=== PATIENT | female | born 1945 | race Caucasian/White ===

== ENCOUNTER 2022-09-28 09:42 | Outpatient (REF) | payer MEDICARE, SELFPAY ==
[2022-09-28 11:01] LABS: MANUAL DIFF FLAG NO
[2022-09-28 11:38] LABS: Basophils Absolute Auto 0.1 X10*3/uL (0.0-0.2); Basophils Percent Auto 0.7 % (0-2); Eosinophils Absolute Auto 0.1 X10*3/uL (0.0-0.4); Eosinophils Percent Auto 0.9 % (0-4); Hemoglobin 12.2 g/dl (12.0-16.0); Imm Gran Abs Auto 0.13 X10*3/uL (0.00-0.03); Imm Gran Pct Auto 1.2 % (0.0-0.4); Lymphocytes Absolute Auto 1.4 X10*3/uL (1.2-4.9); Lymphocytes Percent Auto 13.7 % (20-40); Mean Corpuscular HGB Conc 32.1 g/dl (31.0-35.0); Mean Corpuscular Hemoglobin 27.3 pg (27.0-33.0); Mean Platelet Volume 9.4 fL (9.4-12.3); Monocytes Absolute Auto 0.8 X10*3/uL (0.1-1.2); Monocytes Percent Auto 7.8 % (2-11); Neutrophils Percent Auto 75.7 % (45-73); Platelet Count 437 X10*3/uL (160-400); Red Blood Count 4.47 X10*6/uL (4.20-5.50); Red Cell Distribution Width 14.1 % (11.0-16.0); White Blood Count 10.5 X10*3/uL (4.8-10.8)
[2022-09-28 11:45] LABS: D Dimer High Sensitivity 336 NG/ML
[2022-09-28 12:08] LABS: Alanine Aminotransferase 19 U/L (0-31); Albumin Level 3.5 g/dL (3.5-5.0); Alkaline Phosphatase 161 U/L (39-117); Anion Gap 15 (12-20); Aspartate Amino Transferase 20 U/L (5-31); Bilirubin Direct 0.2 mg/dL (0.0-0.5); Bilirubin Total 0.4 mg/dL (0.0-1.0); Blood Urea Nitrogen 12 mg/dL (9-16); Calcium 8.7 mg/dL (8.4-10.2); Carbon Dioxide 26 mmol/L (22-29); Chloride 103 mmol/L (96-108); Estimated Glomerular Filt Rate > 60; Glucose Random 121 mg/dL (60-115); Potassium 3.8 mmol/L (3.3-5.1); Sodium 140 mmol/L (135-145); Total Protein 6.5 g/dL (6.5-8.0)
[2022-09-28 12:18] LABS: Erythrocyte Sedimentation Rate 86 MM/HR (0-20)
[2022-10-03 07:44] LABS: Myeloperoxidase Antibody <1.0 AI; Proteinase 3 PR3 Antibodies <1.0 AI
[2022-10-03 15:39] LABS: Anti Nuclear Antibody Screen POSITIVE (NEGATIVE)
[2022-10-06 13:54] LABS: Asperg fumigatus Precip Abs NEGATIVE (NEGATIVE); Micropoly faeni Abs NEGATIVE (NEGATIVE); Pigeon serum Abs NEGATIVE (NEGATIVE); Saccharo pora viridis Abs NEGATIVE (NEGATIVE); Thermo candidus Abs NEGATIVE (NEGATIVE); Thermoa vulgaris #1 NEGATIVE (NEGATIVE)
== END 2022-09-28 09:43 | disposition home or self-care (01) ==
LOC: HO.LAB 09:42
PROVIDERS: PCP Internal Medicine; Visit Provider Hospitalist
DX: R91.8 Other nonspecific abnormal finding of lung field (principal); J96.10 Chronic respiratory failure, unspecified whether with hypoxia or hypercapnia; R79.89 Other specified abnormal findings of blood chemistry
CPT/HCPCS: 36415; 80048; 80076; 85025; 85379; 85652; 86021; 86038; 86039; 86331; 86606; 86609; 94618; 99202

== ENCOUNTER 2022-10-15 12:31 | Outpatient (REF) | payer MEDICARE, SELFPAY ==
--- NOTE | 2022-10-15 | PFT_ITS ---
FLOWS: FEV1 41% of predicted at 0.88 L. FVC 55% of predicted at 1.57 L. FEV1 to FVC ratio of 0.56. Positive bronchodilator response. LUNG VOLUMES: Total lung capacity 97% of predicted at 4.98 L. Residual volume 153% of predicted at 3.60 L. Slow vital capacity 49% of predicted at 1.38 L. Expiratory reserve volume 52% of predicted at 0.32 L. Diffusion capacity is moderately decreased, diffusion capacity corrects to normal after adjustment for alveolar ventilation. IMPRESSION: Severe obstructive ventilatory defect with positive bronchodilator response. Increased residual volume suggests air trapping. Decreased diffusion capacity suggests emphysema. MD BRANDON Childs/MODL / [id number]
== END 2022-10-15 12:32 | disposition home or self-care (01) ==
LOC: HO.RESP 12:31
PROVIDERS: PCP Internal Medicine; Visit Provider Hospitalist
DX: J44.9 Chronic obstructive pulmonary disease, unspecified (principal)
CPT/HCPCS: 94060; 94727; 94729

== ENCOUNTER → 2022-10-30 11:15 | Outpatient (REF) | payer MEDICARE, SELFPAY ==
--- NOTE | ~2022-10-30 | XR_ITS ---
EXAMINATION: XR CHEST CLINICAL INFORMATION: Cough, positive sputum. COMPARISON: None. TECHNIQUE: 2 views of the chest were obtained. FINDINGS: The lungs are well expanded with no acute pneumonic process seen. There is mild haziness in the right lower lobe on PA view, likely related to irregularity within the right breast prosthesis which is slightly deformed. Heart size and pulmonary vascularity normal. No gross bony abnormalities seen. XR/XR chest 2V IMPRESSION: No acute cardiopulmonary process seen. There is an irregular and mildly inhomogeneous-appearing right breast prosthesis.
--- NOTE | ~2022-10-30 | NM_ITS ---
PULMONARY PERFUSION ONLY STUDY: CLINICAL INDICATION: Finding of other specified substances, not normally found in blood PROCEDURE: Following the intravenous administration of 0.0 millicuries technetium 99m MAA, images of the chest were obtained in multiple projections using a gamma scintiphotographic camera. The radiotracer was injected through right antecubital superficial vein without complications. COMPARISON: Chest radiograph done on 10/30/2022. CHEST RADIOGRAPH: Bilateral clear lung ghosh. Mild hyperinflation is present bilaterally. PERFUSION IMAGES: Heterogeneous nonsegmental perfusion defects are present bilaterally. There are no large segmental perfusion defects seen on either side. NM/NM pul perfusion IMPRESSION: Based on perfusion only modified PIOPED 2 criteria, pulmonary thromboembolism is considered absent.
== END ==
LOC: HO.NUCMED 11:15
PROVIDERS: PCP Internal Medicine; Visit Provider Hospitalist
DX: R79.89 Other specified abnormal findings of blood chemistry (principal)
CPT/HCPCS: 71046; 78580; A9540

== ENCOUNTER → 2022-11-05 09:57 | Outpatient (BNVA) | payer MEDICARE, SELFPAY | PROVIDERS: PCP Internal Medicine; Visit Provider Hospitalist | DX: J44.0 Chronic obstructive pulmonary disease with (acute) lower respiratory infection (principal); J18.9 Pneumonia, unspecified organism; J96.10 Chronic respiratory failure, unspecified whether with hypoxia or hypercapnia; R91.8 Other nonspecific abnormal finding of lung field; Z79.52 Long term (current) use of systemic steroids; Z79.899 Other long term (current) drug therapy; Z99.81 Dependence on supplemental oxygen | CPT/HCPCS: 99212 ==

== ENCOUNTER → 2023-04-10 13:15 | Outpatient (BNVA) | payer MEDICARE, SELFPAY | PROVIDERS: PCP Internal Medicine; Visit Provider Nurse Practitioner Family | DX: J44.9 Chronic obstructive pulmonary disease, unspecified (principal); J18.9 Pneumonia, unspecified organism | CPT/HCPCS: 94618; 99212 ==

== ENCOUNTER → 2023-05-01 11:00 | Outpatient (BNV) | payer MEDICARE, SELFPAY | PROVIDERS: PCP Internal Medicine; Visit Provider Internal Medicine | DX: C18.2 Malignant neoplasm of ascending colon (principal) | CPT/HCPCS: 99204; 99212; 99213; 99214; 99215; G2211 ==

== ENCOUNTER 2023-05-07 13:45 | Outpatient (REF) | payer MEDICARE, SELFPAY ==
--- NOTE | ~2023-05-07 | CT_ITS ---
EXAMINATION: CT CHEST WITH IV CONTRAST CT ABDOMEN AND PELVIS WITH IV CONTRAST CLINICAL INFORMATION: History of recurrent colon carcinoma. Also, chest CT requested to follow-up pneumonitis. Also, follow-up pancreatitis., COMPARISON: Chest radiograph from 10/30/2022. TECHNIQUE: Multidetector CT imaging examination of the chest, abdomen and pelvis was performed with intravenous administration of 85 mL Omnipaque 350. Axial images are displayed at 0.625 mm and 5 mm slice thickness. Oral contrast was given. Coronal and sagittal reformatted images were generated at the technologist's workstation and submitted for review. This CT examination was performed using dose optimization techniques as appropriate, variously including the following: *Automated exposure control *Adjustment of mA and/or kV according to patient size (this includes techniques or standardized protocols for targeted exams where dose is matched to indication/reason for exam; i.e. extremities or head) *Use of iterative reconstruction technique DLP: 300 mGy-cm FINDINGS: CHEST - LUNGS AND PLEURA: Mild centrilobular and paraseptal emphysema. The bronchial zamudio are diffusely, mildly thickened. Scattered linear opacities of scarring and atelectasis are present in both lungs. Also, there are patchy bilateral groundglass opacities. A streaky opacity of mixed attenuation in the anterior right lower lobe could represent subacute postinfectious/inflammatory change (images [id number], series 7). The peripheral pleural-parenchymal opacity of the posterior left lower lobe has the appearance of chronic fibrosis. A few noncalcified pulmonary micronodules are detected, including within periphery of the anterolateral right upper lobe (image 144, series 7). No suspicious lung nodule or mass. No pleural effusion. MEDIASTINUM/LOWER NECK: The heart size is normal. No pericardial effusion. Pulmonary arteries and thoracic aorta are normal in caliber. No mediastinal mass. The esophagus is unremarkable. No evidence of any clinically significant thyroid nodule. LYMPHATICS: No pathologic sized axillary, hilar or mediastinal lymph nodes. CHEST WALL/BONES OF THORAX: Chronic capsular calcifications of bilateral breast prostheses. There is a right chest wall medication port with tip of IJ catheter located at junction of the SVC with right atrium. Bones appear to be diffusely osteoporotic. There are mild and moderate discovertebral degenerative changes of the thoracic spine. No vertebral compression fractures. ABDOMEN AND PELVIS - HEPATOBILIARY: There is normal variation configuration of the left hepatic lobe which is elongated with tip of left lobe in contact with the spleen in the left upper quadrant. No focal liver lesion. Gallbladder is unremarkable. No dilated bile ducts. PANCREAS: No edema, mass or pancreatic ductal dilatation. SPLEEN: Normal. ADRENAL GLANDS: Normal. KIDNEYS AND URETERS: Kidneys are normal in size. No renal stones or hydronephrosis. There are simple cysts of the left kidney. 1.3 cm cortical lesion of the anterior mid right kidney has a density of 90 Hounsfield units. Although this probably represents a proteinaceous cyst, this is an indeterminate lesion, not fully characterized. Multiple surgical clips project lateral/inferolateral to the right kidney and along region of the anterior renal fascia. The mass projecting inferolateral to the lower pole of the right kidney measures up to 3 cm maximum dimension and has density of 130 Hounsfield units. This is incompletely characterized on this single phase contrast-enhanced examination. The ureters are unremarkable. BOWEL, PERITONEUM AND ABDOMINAL WALL: No dilated bowel loops. There appears to be a diverticulum of the second portion the duodenum. There is an ileostomy of the right abdominal wall, status post right hemicolectomy. Multiple diverticula of the colon without diverticulitis. There is a 0.5 cm lymph node or nodule in the region of the right paracolic gutter (image 41, series 3). Given history of recurrent carcinoma, a small tumor deposit is not excluded. There is no evidence of omental nodularity, ascites or pneumoperitoneum. VESSELS: Atherosclerosis of the abdominal aorta and iliac arteries without aneurysm. LYMPH NODES: No pathologic sized lymph nodes in the abdomen or pelvis. No inguinal lymphadenopathy. BLADDER AND PELVIC VISCERA: Urinary bladder is unremarkable. No evidence of uterine or adnexal mass. No pelvic free fluid. OTHER MUSCULOSKELETAL: Again, bones appear to be diffusely osteoporotic. Lumbar vertebra are normal in height. Multilevel degenerative disc space narrowing, vacuum disc phenomenon and vertebral osteophyte formation of the lumbar spine. No acute or suspicious osseous abnormality. CT/CT abdomen pelvis w IV con IMPRESSION: * Mild pulmonary emphysema. * Patchy groundglass opacities in both lungs could reflect presence of noninfectious or infectious pneumonitis. Note that there are no comparison chest CT exams available to allow comment on improvement or progression in the patient's pneumonitis. There is no pleural effusion or lymphadenopathy. * No evidence of metastatic disease within the chest. * Status post right hemicolectomy and ileostomy. Small 0.5 cm nodular focus in region of right paracolic gutter is present. It is uncertain whether this represents a small metastatic deposit in this patient with history of colon carcinoma. Attention to this focus is required on future follow-up exams. * 1.3 cm cortical lesion of the anterior right kidney probably represents a proteinaceous cyst but is not fully characterized. Also, there is an indeterminate 3 cm mass projecting from the lower pole of the right kidney, differential diagnosis of complex hemorrhagic cyst versus neoplasm. * Pancreas is normal. No evidence of pancreatitis. * Colonic diverticulosis without diverticulitis.
[2023-05-07] MEDS: iohexoL 350 MG/ML 100 ML INFUS..BTL IV (14:28)
== END 2023-05-07 13:46 | disposition home or self-care (01) ==
LOC: HO.CT 13:45
PROVIDERS: PCP Internal Medicine; Visit Provider Internal Medicine
DX: C18.9 Malignant neoplasm of colon, unspecified (principal); J18.9 Pneumonia, unspecified organism; R91.8 Other nonspecific abnormal finding of lung field
CPT/HCPCS: 71260; 74177; Q9967

== ENCOUNTER 2023-05-23 09:39 | Outpatient (AMB) | payer MEDICARE, SELFPAY ==
[2023-05-23 09:51] VITALS: BP 118/70; PULSE 81; O2SAT 96; BMI 19.7
--- NOTE | 2023-05-23 09:51 | A.OFFVIS_ITS ---
Intake Vital Signs 05/23/23 09:51 Height 5 ft 4 in Weight 114 lb 10.246 oz BMI 19.7 BP 118/70 Blood Pressure Location Lt brachial Position Sitting Pulse 81 Pulse Source Pulse Oximeter Pulse Oximetry (%) 96 Oxygen Delivery Method Room Air Intake Visit Reasons: shortness of breath [employer]eter Required: No Allergies No Known Allergies Allergy (Verified 05/23/23 09:54) HPI HPI Comments History of Present Illness Details the patient is here for a pulmonary evaluation. The patient is a 77 year woman who apparently was in usual state health until the last several weeks when she started developing worsening shortness of breath. She was evaluated at [facility] where she was admitted to the hospital. There she did undergo a CT scan of the chest PE protocol ruling out PE although she had multiple patchy areas of consolidations and nodular densities. It was suspicious for inflammatory process versus infectious atypical process. She was given a course of prednisone and also antibiotics. Her symptoms did improve initially initially. However she also needed oxygen. She was discharged and then tapered off the prednisone. She has been noticing worsening shortness of breath. I personally reviewed the images. Appears that the it patchy opacities are primarily in a bronchovascular distribution. Noninfectious inflammatory conditions such as cryptogenic organizing pneumonia is in differential. The patient also went for 6 minute walk test. The patient still requires about 3 L of continues oxygen to maintain are within the low 90s. Therefore will submit that to her [employer]. Explained to her that she cannot use effectively a conserving device or portable oxygen concentrator. Dose will not provide her enough relief or help with her hypoxia. Patient also using the oxygen at nighttime. In view of the CT scan findings she will undergo blood work. Rivka Dawson ruled out pulmonary emboli based on the CTA. However I will order D- dimer again just to reassess. If her D-dimer is elevated and a V/Q scan will be helpful to assess for thromboembolic disease. 11/05/2022 the patient is here for a pulmonary follow-up visit. She is down to 5 mg of prednisone daily. She is getting some dyspepsia Erika he had sensation middle the chest. Will place her on a PPI to try to minimize symptoms. We again talked about the findings on the CT scan. Does not appear to be concern ing for malignancy although it is still in differential. It appears to be more inflammatory. Her blood work included a positive JAXON although very slow titers. If she also had a significantly elevated sedimentation rate of 86. The significance of that is still not clear. Her vasculitis workup was negative and her hypersensitive workup also negative. She is feeling better. She is not using the oxygen which is reassuring. She also did undergo pulmonary function studies which we personally reviewed the patient does have severe COPD based on the PFTs and does have a significant response to bronchodilators. Therefore will go ahead and start her on a maintenance inhaler to see if we can alleviate some of her symptoms. She will need a repeat CT scan of the chest to follow up with the abnormal masslike opacities that she had a previous CT scan. Will follow-up after her CT scan. 05/23/2023 the patient is here for pulmonary follow-up visit. Reason she was to be sent March with worsening respiratory symptoms. X-ray demonstrated pneumonia. The patient's treating release. Above discharge the patient continue to have a worsening cough along with shortness of breath. She was prescribed azithromycin and also prednisone. She did not take the prednisone since he really affected her adversely when she had prescribed at [facility]. Explained to her that was likely a high dose making it difficult for her to tolerated. However, give her small dose of medicine a would be tolerable. The patient did have a CT scan of the chest here at [place] on May 07. I personally reviewed with her. It looks like the pneumonia cleared up. However, she does have areas of ground- glass opacities suggesting some persistent pneumonitis. She had been as on a small dose of prednisone and I do believe that she continues to need a little bit of prednisone. Therefore will start her on 10 mg daily for 2 weeks and then she can taper down to 5 mg for another 1-2 weeks. The patient will be evaluated by Oncology again both here at [place] and also in [place]. The patient is aware that if she starts immune therapy again she has start the prednisone altogether will also extend her antibiotics since she is still expectorating some phlegm. Overall she is feeling better. [facility] Medical History (Updated 05/17/23 @ 15:27 by Cece Reagan MD) Blood D-dimer assay positive CAD (coronary artery disease) Chronic respiratory failure Colon adenocarcinoma COPD (chronic obstructive pulmonary disease) Pneumonia Pulmonary nodules Surgical History S/P colon resection Family History Sister Dementia Breast cancer Father Emphysema lung Mother Social History Household Members: Spouse Housing: House Patient Tobacco Use Status: Former Tobacco user Tobacco use type: Cigarette service: No Current occupational status: retired Review of Systems Const Denies fever(s), Reports poor appetite and Reports weight loss Eyes Denies change in vision and Denies itchy eyes ENT Denies change in voice Card Denies chest pain and Reports dyspnea on exertion Resp Reports chest congestion, Reports cough and Reports dyspnea on exertion GI Denies abdominal pain Skin/Breast Denies rash Psych Reports no additional complaints Endo Denies heat intolerance [place]/Lymph Denies easy bruising Aller/Immun Denies urticaria and Denies itchy eyes Physical Exam Vital Signs: Last Vital Signs Pulse 81 05/23/23 09:51 BP 118/70 05/23/23 09:51 Pulse Ox 96 05/23/23 09:51 Oxygen Delivery Method Room Air 05/23/23 09:51 BMI result Body Mass Index 19.7 Const General: comfortable HEENT Head: Yes atraumatic Eyes General: appearance normal, both eyes and all related structures Neck Neck: Yes supple Chest Chest palpation & inspection: normal inspection of the chest Resp Effort & Inspection: normal respiratory effort Auscultation: diminished lung sounds GI Auscultation: normal bowel sounds Skin General skin exam: no rashes or lesions noted Extrem General: Yes no clubbing, cyanosis or edema Assessment & Plan Assessment & Plan (1) Chronic respiratory failure: Code(s): J96.10 - Chronic respiratory failure, unspecified whether with hypoxia or hypercapnia (2) Pulmonary nodules: Code(s): R91.8 - Other nonspecific abnormal finding of lung field (3) COPD (chronic obstructive pulmonary disease): Comment: severe based on PFTs Code(s): J44.9 - Chronic obstructive pulmonary disease, unspecified (4) Pneumonia: Comment: ?infectious versus non infectious. Very suspicious for cryptogenic organising pneumonia or AFOB. +JAXON although low titers, ESR was significantly elevated. Code(s): J18.9 - Pneumonia, unspecified organism (5) Pneumonitis: Code(s): J18.9 - Pneumonia, unspecified organism Plan continue prednisone 10 mg daily x 2 weeks, then 5 mg daily x 1-2 weeks the continue Trelegy 200 Azythromycin x 5 days reflux diet continue oxygen supplementation 2 L with activity. F/U 4-6 w theeeks Medications: New azithromycin 500 mg PO DAILY 5 days 5 tabs 0RF prednisone 10 mg PO DAILY 30 days 30 tabs 0RF Coding Level of Care Code Est Pt Level 4 (78925) Diagnoses Chronic respiratory failure J96.10 Pulmonary nodules R91.8 COPD (chronic obstructive pulmonary disease) J44.9 Pneumonia J18.9 Pneumonitis J18.9 Time Spent (min) 20
== END 2023-05-23 10:43 | disposition home or self-care (01) ==
PROVIDERS: PCP Internal Medicine; Visit Provider Hospitalist
DX: J96.10 Chronic respiratory failure, unspecified whether with hypoxia or hypercapnia (principal); R91.8 Other nonspecific abnormal finding of lung field; J44.9 Chronic obstructive pulmonary disease, unspecified; J18.9 Pneumonia, unspecified organism
CPT/HCPCS: 99214

== ENCOUNTER → 2023-05-23 09:39 | Outpatient (BNVA) | payer MEDICARE, SELFPAY | PROVIDERS: PCP Internal Medicine; Visit Provider Hospitalist | DX: J96.10 Chronic respiratory failure, unspecified whether with hypoxia or hypercapnia (principal); J44.9 Chronic obstructive pulmonary disease, unspecified; J18.9 Pneumonia, unspecified organism; R91.8 Other nonspecific abnormal finding of lung field | CPT/HCPCS: 99212 ==

== ENCOUNTER 2023-06-20 14:35 | Outpatient (AMB) | payer MEDICARE, SELFPAY ==
--- NOTE | 2023-06-20 14:56 | A.OFFVIS_ITS ---
Intake Vital Signs 06/20/23 15:01 Height 5 ft 4 in Weight 120 lb BMI 20.6 BP 124/70 Blood Pressure Location Lt brachial Position Sitting Pulse 74 Pulse Source Pulse Oximeter Pulse Oximetry (%) 96 Oxygen Delivery Method Room Air Intake Visit Reasons: lung CA Superintendent Meters Required: No Allergies No Known Allergies Allergy (Verified 06/20/23 15:04) HPI HPI Comments History of Present Illness Details The patient is a 77 year woman who apparently was in usual state health until the last several weeks when she started developing worsening shortness of breath. She was evaluated at [facility] where she was admitted to the hospital. There she did undergo a CT scan of the chest PE protocol ruling out PE although she had multiple patchy areas of consolidations and nodular densities. It was suspicious for inflammatory process versus infectious atypical process. She was given a course of prednisone and also antibiotics. Her symptoms did improve initially initially. However she also needed oxygen. She was discharged and then tapered off the prednisone. She has been noticing worsening shortness of breath. I personally reviewed the images. Appears that the it patchy opacities are primarily in a bronchovascular distribution. Noninfectious inflammatory conditions such as cryptogenic organizing pneumonia is in differential. The patient also went for 6 minute walk test. The patient still requires about 3 L of continues oxygen to maintain are within the low 90s. Therefore will submit that to her [employer] company. Explained to her that she cannot use effectively a conserving device or portable oxygen concentrator. Dose will not provide her enough relief or help with her hypoxia. Patient also using the oxygen at nighttime. In view of the CT scan findings she will undergo blood work. Rivka Dawson ruled out pulmonary emboli based on the CTA. However I will order D-dimer again just to reassess. If her D-dimer is elevated and a V/Q scan will be helpful to assess for thromboembolic disease. 11/05/2022 the patient is here for a pulm onary follow-up visit. She is down to 5 mg of prednisone daily. She is getting some dyspepsia Erika he had sensation middle the chest. Will place her on a PPI to try to minimize symptoms. We again talked about the findings on the CT scan. Does not appear to be concerning for malignancy although it is still in differential. It appears to be more inflammatory. Her blood work included a positive JAXON although very slow titers. If she also had a significantly elevated sedimentation rate of 86. The significance of that is still not clear. Her vasculitis workup was negative and her hypersensitive workup also negative. She is feeling better. She is not using the oxygen which is reassuring. She also did undergo pulmonary function studies which we personally reviewed the patient does have severe COPD based on the PFTs and does have a significant response to bronchodilators. Therefore will go ahead and start her on a maintenance inhaler to see if we can alleviate some of her symptoms. She will need a repeat CT scan of the chest to follow up with the abnormal masslike opacities that she had a previous CT scan. Will follow-up after her CT scan. 05/23/2023 the patient is here for pulmon geraldine follow-up visit. Reason she was to be sent March with worsening respiratory symptoms. X-ray demonstrated pneumonia. The patient's treating release. Above discharge the patient continue to have a worsening cough along with shortness of breath. She was prescribed azithromycin and also prednisone. She did not take the prednisone since he really affected her adversely when she had prescribed at [facility]. Explained to her that was likely a high dose making it difficult for her to tolerated. However, give her small dose of medicine a would be tolerable. The patient did have a CT scan of the chest here at [facility] on May 07. I personally reviewed with her. It looks like the pneumonia cleared up. However, she does have areas of ground- glass opacities suggesting some persistent pneumonitis. She had been as on a small dose of prednisone and I do believe that she continues to need a little bit of prednisone. Therefore will start her on 10 mg daily for 2 weeks and then she can taper down to 5 mg for another 1-2 weeks. The patient will be evaluated by Oncology again both here at [facility] and also in [place]. The patient is aware that if she starts immune therapy again she has start the prednisone altogether will also extend her antibiotics since she is still expectorating some phlegm. Overall she is feeling better. 06/20/2023 the patient is here for a pulmonary follow-up visit. Overall the patient has been feeling better from a respiratory standpoint. She continues on prednisone. Now taking half a tablet, 5 mg, daily. She has 2 more weeks. In the meantime she she was start her new treatment tomorrow for her colon cancer. She did not tolerate immune therapy. She will be starting monoclonal antibodies and tiredness kinase inhibitors. Hopefully she can tolerate the therapy better in the meantime will go ahead and repeat her chest x-ray when she has completed the prednisone. If the patient has any worsening symptoms prior to the next visit the patient is to call the office for an earlier assessment. [facility] Medical History (Updated 06/20/23 @ 15:17 by Bharat Dominguez MD) CAD (coronary artery disease) Colon adenocarcinoma Pneumonia COPD (chronic obstructive pulmonary disease) Blood D-dimer assay positive Chronic respiratory failure Pulmonary nodules Surgical History S/P colon resection Family History Sister Dementia Breast cancer Father Emphysema lung Mother Social History Household Members: Spouse Housing: House Patient Tobacco Use Status: Former Tobacco user Tobacco use type: Cigarette service: No Current occupational status: retired Review of Systems Const Denies fever(s), Reports poor appetite and Reports weight loss Eyes Denies change in vision and Denies itchy eyes ENT Denies change in voice Card Denies chest pain and Reports dyspnea on exertion Resp Reports chest congestion, Reports cough and Reports dyspnea on exertion GI Denies abdominal pain Skin/Breast Denies rash Psych Reports no additional complaints Endo Denies heat intolerance [place]/Lymph Denies easy bruising Aller/Immun Denies urticaria and Denies itchy eyes Physical Exam Vital Signs: Last Vital Signs Pulse 74 06/20/23 15:01 BP 124/70 06/20/23 15:01 Pulse Ox 96 06/20/23 15:01 Oxygen Delivery Method Room Air 06/20/23 15:01 BMI result Body Mass Index 20.6 Const General: comfortable HEENT Head: Yes atraumatic Eyes General: appearance normal, both eyes and all related structures Neck Neck: Yes supple Chest Chest palpation & inspection: normal inspection of the chest Resp Effort & Inspection: normal respiratory effort Auscultation: no crackles, no rales and diminished lung sounds GI Auscultation: normal bowel sounds Skin General skin exam: no rashes or lesions noted Extrem General: Yes no clubbing, cyanosis or edema Assessment & Plan Assessment & Plan (1) Chronic respiratory failure: Code(s): J96.10 - Chronic respiratory failure, unspecified whether with hypoxia or hypercapnia Qualifiers: Respiratory failure complication: hypoxia Qualified Code(s): J96.11 - Chronic respiratory failure with hypoxia (2) Pulmonary nodules: Code(s): R91.8 - Other nonspecific abnormal finding of lung field (3) COPD (chronic obstructive pulmonary disease): Comment: severe based on PFTs Code(s): J44.9 - Chronic obstructive pulmonary disease, unspecified Qualifiers: COPD type: chronic bronchitis Chronic bronchitis type: simple Qualified Code(s): J41.0 - Simple chronic bronchitis (4) Pneumonia: Comment: ?infectious versus non infectious. Very suspicious for cryptogenic organising pneumonia or AFOB. +JAXON although low titers, ESR was significantly elevated. Code(s): J18.9 - Pneumonia, unspecified organism Qualifiers: Laterality: unspecified laterality Lung location: unspecified part of lung Pneumonia type: due to unspecified organism Qualified Code(s): J18.9 - Pneumonia, unspecified organism (5) Pneumonitis: Code(s): J18.9 - Pneumonia, unspecified organism Plan continue prednisone 5 mg daily x 2 weeks then stop continue Trelegy 200 reflux diet continue oxygen supplementation 2 L with activity. CXR in 3-4 weeks F/U 2-3 months Coding Level of Care Code Est Pt Level 4 (03201) Diagnoses Chronic respiratory failure with hypoxia J96.11 Respiratory failure complication: hypoxia Pulmonary nodules R91.8 Simple chronic bronchitis J41.0 COPD type: chronic bronchitis Chronic bronchitis type: simple Pneumonia due to infectious organism, unspecified laterality, unspecified part of lung J18.9 Laterality: unspecified laterality Lung location: unspecified part of lung Pneumonia type: due to unspecified organism Pneumonitis J18.9 Time Spent (min) 18
[2023-06-20 15:01] VITALS: BP 124/70; PULSE 74; O2SAT 96; BMI 20.6
== END 2023-06-20 15:28 | disposition home or self-care (01) ==
PROVIDERS: PCP Internal Medicine; Visit Provider Hospitalist
DX: J96.11 Chronic respiratory failure with hypoxia (principal); R91.8 Other nonspecific abnormal finding of lung field; J41.0 Simple chronic bronchitis; J18.9 Pneumonia, unspecified organism
CPT/HCPCS: 99214

== ENCOUNTER → 2023-06-20 14:35 | Outpatient (BNVA) | payer MEDICARE, SELFPAY | PROVIDERS: PCP Internal Medicine; Visit Provider Hospitalist | DX: J18.9 Pneumonia, unspecified organism (principal); J96.11 Chronic respiratory failure with hypoxia; J41.0 Simple chronic bronchitis; R91.8 Other nonspecific abnormal finding of lung field; Z79.52 Long term (current) use of systemic steroids; Z79.899 Other long term (current) drug therapy; Z99.81 Dependence on supplemental oxygen | CPT/HCPCS: 99212 ==

== ENCOUNTER 2023-09-20 09:51 | Outpatient (AMB) | payer MEDICARE, SELFPAY ==
[2023-09-20 10:02] VITALS: BP 110/70; PULSE 79; O2SAT 96; BMI 20.6
--- NOTE | 2023-09-20 10:02 | A.OFFVIS_ITS ---
Intake Vital Signs 09/20/23 10:02 Height 5 ft 4 in Weight 120 lb BMI 20.6 BP 110/70 Blood Pressure Location Lt brachial Position Sitting Pulse 79 Pulse Source Pulse Oximeter Pulse Oximetry (%) 96 Oxygen Delivery Method Room Air Intake Visit Reasons: Resp Failure Formula Technician Required: No Allergies No Known Allergies Allergy (Verified 09/20/23 10:05) HPI HPI Comments History of Present Illness Details The patient is a 78 year woman who apparently was in usual state health until the last several weeks when she started developing worsening shortness of breath. She was evaluated at [facility] where she was admitted to the hospital. There she did undergo a CT scan of the chest PE protocol ruling out PE although she had multiple patchy areas of consolidations and nodular densities. It was suspicious for inflammatory process versus infectious atypical process. She was given a course of prednisone and also antibiotics. Her symptoms did improve initially initially. However she also needed oxygen. She was discharged and then tapered off the prednisone. She has been noticing worsening shortness of breath. I personally reviewed the images. Appears that the it patchy opacities are primarily in a bronchovascular distribution. Noninfectious inflammatory conditions such as cryptogenic organizing pneumonia is in differential. The patient also went for 6 minute walk test. The patient still requires about 3 L of continues oxygen to maintain are within the low 90s. Therefore will submit that to her [employer]. Explained to her that she cannot use effectively a conserving device or portable oxygen concentrator. Dose will not provide her enough relief or help with her hypoxia. Patient also using the oxygen at nighttime. In view of the CT scan findings she will undergo blood work. Rivka Dawson ruled out pulmonary emboli based on the CTA. However I will order D-dimer again just to reassess. If her D-dimer is elevated and a V/Q scan will be helpful to assess for thromboembolic disease. 11/05/2022 the patient is here for a pulm onary follow-up visit. She is down to 5 mg of prednisone daily. She is getting some dyspepsia Erika he had sensation middle the chest. Will place her on a PPI to try to minimize symptoms. We again talked about the findings on the CT scan. Does not appear to be concerning for malignancy although it is still in differential. It appears to be more inflammatory. Her blood work included a positive JAXON although very slow titers. If she also had a significantly elevated sedimentation rate of 86. The significance of that is still not clear. Her vasculitis workup was negative and her hypersensitive workup also negative. She is feeling better. She is not using the oxygen which is reassuring. She also did undergo pulmonary function studies which we personally reviewed the patient does have severe COPD based on the PFTs and does have a significant response to bronchodilators. Therefore will go ahead and start her on a maintenance inhaler to see if we can alleviate some of her symptoms. She will need a repeat CT scan of the chest to follow up with the abnormal masslike opacities that she had a previous CT scan. Will fo llow-up after her CT scan. 05/23/2023 the patient is here for pulmon geraldine follow-up visit. Reason she was to be sent March with worsening respiratory symptoms. X-ray demonstrated pneumonia. The patient's treating release. Above discharge the patient continue to have a worsening cough along with shortness of breath. She was prescribed azithromycin and also prednisone. She did not take the prednisone since he really affected her adversely when she had prescribed at [facility]. Explained to her that was likely a high dose making it difficult for her to tolerated. However, give her small dose of medicine a would be tolerable. The patient did have a CT scan of the chest here at [facility] on May 07. I personally reviewed with her. It looks like the pneumonia cleared up. However, she does have areas of ground- glass opacities suggesting some persistent pneumonitis. She had been as on a small dose of prednisone and I do believe that she continues to need a little bit of prednisone. Therefore will start her on 10 mg daily for 2 weeks and then she can taper down to 5 mg for another 1-2 weeks. The patient will be evaluated by Oncology again both here at [facility] and also in [place]. The patient is aware that if she starts immune therapy again she has start the prednisone altogether will also extend her antibiotics since she is still expectorating some phlegm. Overall she is feeling better. 06/20/2023 the patient is here for a pulmonary follow-up visit. Overall the patient has been feeling better from a respiratory standpoint. She continues on prednisone. Now taking half a tablet, 5 mg, daily. She has 2 more weeks. In the meantime she she was start her new treatment tomorrow for her colon cancer. She did not tolerate immune therapy. She will be starting monoclonal antibodies and tiredness kinase inhibitors. Hopefully she can tolerate the therapy better in the meantime will go ahead and repeat her chest x-ray when she has completed the prednisone. If the patient has any worsening symptoms prior to the next visit the patient is to call the office for an earlier assessment. 09/20/2023 the patient is here for a pul monary follow-up visit. She is doing very well from a respiratory status. She is off the prednisone and she is also off the oxygen right now. She recently did have a reversible her ostomy bag which is very happy about. She is 2 weeks out. She will be talking to her oncologist soon. She is wondering about going back tried immune therapy. The immune therapy likely resulted adverse reactions such as pneumonitis. However, it worked well for her cancer. Seems like it help shrink the cancer. She will talk to her oncologist regarding that potential therapy. In the meantime if she does go back on immune therapy will have to provide her with additional inhaled steroids to try to minimize the pulmonary adverse effects and she can not tolerate it. [facility] Medical History (Updated 09/23/23 @ 21:24 by Bharat Dominguez MD) CAD (coronary artery disease) Colon adenocarcinoma Pneumonia COPD (chronic obstructive pulmonary disease) Blood D-dimer assay positive Chronic respiratory failure Pulmonary nodules Surgical History S/P colon resection Family History Sister Dementia Breast cancer Father Emphysema lung Mother Social History Household Members: Spouse Housing: House Patient Tobacco Use Status: Former Tobacco user Tobacco use type: Cigarette Use of substances other than those prescribed or required for medical reasons: No Have you been hit, kicked, punched, or otherwise hurt by someone within the past year? If so, by whom?: No Do you feel safe in your current relationship?: Yes Do you have thoughts of harming others: None Do you have a plan to hurt others: No Plan Do you have the means to hurt others: No Recently lost weight without trying: Yes How much weight loss: 24-33 pounds Eating poorly because of decreased appetite: No Nutrition screen score: 5 service: No Current occupational status: retired Review of Systems Const Denies fever(s), Reports poor appetite and Reports weight loss Eyes Denies change in vision and Denies itchy eyes ENT Denies change in voice Card Denies chest pain and Reports dyspnea on exertion Resp Reports chest congestion, Reports cough and Reports dyspnea on exertion GI Denies abdominal pain Skin/Breast Denies rash Psych Reports no additional complaints Endo Denies heat intolerance [place]/Lymph Denies easy bruising Aller/Immun Denies urticaria and Denies itchy eyes Physical Exam Vital Signs: Last Vital Signs Pulse 79 09/20/23 10:02 BP 110/70 09/20/23 10:02 Pulse Ox 96 09/20/23 10:02 Oxygen Delivery Method Room Air 09/20/23 10:02 BMI result Body Mass Index 20.6 Const General: comfortable HEENT Head: Yes atraumatic Eyes General: appearance normal, both eyes and all related structures Neck Neck: Yes supple Chest Chest palpation & inspection: normal inspection of the chest Resp Effort & Inspection: normal respiratory effort Auscultation: no crackles, no rales and diminished lung sounds GI Auscultation: normal bowel sounds Skin General skin exam: no rashes or lesions noted Extrem General: Yes no clubbing, cyanosis or edema Assessment & Plan Assessment & Plan (1) Chronic respiratory failure: Comment: better Code(s): J96.10 - Chronic respiratory failure, unspecified whether with hypoxia or hypercapnia Qualifiers: Respiratory failure complication: hypoxia Qualified Code(s): J96.11 - Chronic respiratory failure with hypoxia (2) Pulmonary nodules: Code(s): R91.8 - Other nonspecific abnormal finding of lung field (3) COPD (chronic obstructive pulmonary disease): Comment: severe based on PFTs Code(s): J44.9 - Chronic obstructive pulmonary disease, unspecified Qualifiers: COPD type: chronic bronchitis Chronic bronchitis type: simple Qualified Code(s): J41.0 - Simple chronic bronchitis (4) Pneumonitis: Comment: better Code(s): J18.9 - Pneumonia, unspecified organism Plan continue Trelegy 200 reflux diet continue oxygen supplementation 2 L with activity. Will comsider re- evaluation during the next visit will d/w Oncology any additional therapies. If she Immune therapy is considered, then, cough try additional inhaled corticosteroids F/U 3 months Coding Level of Care Code Est Pt Level 4 (96574) Diagnoses Chronic respiratory failure with hypoxia J96.11 Respiratory failure complication: hypoxia Pulmonary nodules R91.8 Simple chronic bronchitis J41.0 COPD type: chronic bronchitis Chronic bronchitis type: simple Pneumonitis J18.9 Time Spent (min) 17
== END 2023-09-20 11:24 | disposition home or self-care (01) ==
PROVIDERS: PCP Internal Medicine; Visit Provider Hospitalist
DX: J96.11 Chronic respiratory failure with hypoxia (principal); R91.8 Other nonspecific abnormal finding of lung field; J41.0 Simple chronic bronchitis; J18.9 Pneumonia, unspecified organism
CPT/HCPCS: 99214

== ENCOUNTER → 2023-09-20 09:51 | Outpatient (BNVA) | payer MEDICARE, SELFPAY | PROVIDERS: PCP Internal Medicine; Visit Provider Hospitalist | DX: J96.11 Chronic respiratory failure with hypoxia (principal); R91.8 Other nonspecific abnormal finding of lung field; J41.0 Simple chronic bronchitis; J18.9 Pneumonia, unspecified organism | CPT/HCPCS: 99212 ==

== ENCOUNTER 2024-05-11 14:37 | Inpatient (IN) | payer MEDICARE, SELFPAY ==
--- NOTE | ~2024-05-11 | XR_ITS ---
EXAMINATION: XR CHEST CLINICAL INFORMATION: Shortness of breath COMPARISON: Chest radiograph 04/02/2023 and 10/30/2022 TECHNIQUE: Frontal view of the chest was obtained. FINDINGS: Again seen is a right-sided jugular port with its tip in the SVC. Calcified breast prostheses are present. At the time of the prior study, an area of probable consolidation at the right lung base was present which appears to have cleared. There is new consolidations seen on top of the minor fissure in the right upper lobe. No pleural effusions. Osseous structures unremarkable aside from thoracic scoliosis. XR/XR chest 1V IMPRESSION: 1. New right upper lobe consolidation. 2. Resolution of right lower lobe consolidation.
--- NOTE | ~2024-05-11 | CT_ITS ---
EXAMINATION: CTA CHEST PE STUDY CLINICAL INFORMATION: sob COMPARISON: No pertinent prior studies are available for comparison. TECHNIQUE: Prior to contrast administration, noncontrast localization images were obtained. After the administration of 65 mL of Omnipaque nonionic IV contrast, contiguous thin slice helical images were obtained through the thorax. Reformatted MIP images in the coronal and sagittal planes were obtained at the acquisition workstation. This CT examination was performed using dose optimization techniques as appropriate, variously including the following: *Automated exposure control *Adjustment of mA and/or kV according to patient size (this includes techniques or standardized protocols for targeted exams where dose is matched to indication/reason for exam; i.e. extremities or head) *Use of iterative reconstruction technique DLP: 215 mGy-cm. FINDINGS: The bolus timing on this study was acceptable for visualization of the pulmonary arterial tree. There are no intraluminal pulmonary arterial filling defects present to suggest pulmonary embolism. Dense consolidation with air bronchograms in the right lower lobe suggesting infectious etiology. Mild chronic appearing changes otherwise. No abnormal pulmonary nodules or masses are appreciated. No significant hilar or mediastinal adenopathy. There is no evidence of pleural effusion or pneumothorax. The heart is normal in size. No evidence of ventricular septal bowing or right heart strain. Great vessels are normal. There is no pericardial effusion or pericardial thickening. Bilateral calcified breast implants. Limited evaluation of the upper abdominal viscera is unremarkable. CT/CT angio chest PE protocol IMPRESSION: 1. No evidence for pulmonary emboli. 2. Dense consolidation in the right lower lobe suggesting infectious etiology. 3. VTE: Negative.
--- NOTE | ~2024-05-11 | XR_ITS ---
EXAMINATION: XR CHEST CLINICAL INFORMATION: Pneumonia. COMPARISON: 05/11/2024 TECHNIQUE: Frontal view of the chest was obtained. FINDINGS: Right chest wall Port-A-Cath with tip projecting over the cavoatrial junction. Bilateral breast implants with capsular calcification. The left hemithorax is grossly clear. There is persistent airspace disease in the right upper lung zone. There is a small and nodular density projecting superior to the right hemidiaphragm measuring 1.4 cm. No significant pleural effusion. Cardiac silhouette is unchanged. XR/XR chest 1V IMPRESSION: Persistent airspace disease in the right upper lung zone. Smaller supradiaphragmatic nodular density measuring 1.4 cm.
--- NOTE | 2024-05-11 14:42 | ECG_ITS ---
Test Reason : SOB Blood Pressure : / mmHG Vent. Rate : 081 BPM Atrial Rate : 081 BPM P-R Int : 148 ms QRS Dur : 124 ms QT Int : 402 ms P-R-T Axes : 071 053 050 degrees QTc Int : 466 ms Sinus rhythm with Premature atrial complexes with Aberrant conduction Right bundle branch block Abnormal ECG No previous ECGs available Referred By: Sarmad Liu Electronically Signed By:GERTRUDE ACEVES MD
[2024-05-11 14:43] VITALS: BP 119/72; PULSE 76; RESP 18; TEMP 36.8; O2SAT 94; BMI 19.7
--- NOTE | 2024-05-11 14:47 | ED.SOB ---
HPI - SOB/Dyspnea General Chief Complaint: Dyspnea Stated Complaint: From oncology Time Seen by Provider: 05/11/24 14:43 Source: patient Mode of arrival: ambulatory Limitations: no limitations History of Present Illness HPI Narrative: 78 year old female with PMH: of metastatic colon cancer followed by Dr. Reagan had pnemonitisio on chemotherapy and was recently started on a similiar medications. Seen by Dr Reagan who wants the patient admitted to medicine regardless. She is high risk for PE but not anticoagulated never had a PE in the past. Last time it was due to being on immunotherapy may show which is she is on again denies fevers chills or cough. She states her last dose was 3 weeks ago Related Data Home Medications ?Medication ?Instructions ?Recorded ?Confirmed aspirin 81 mg tablet,delayed 81 mg PO DAILY 09/28/22 02/10/24 release atorvastatin 80 mg tablet 80 mg PO DAILY 09/28/22 02/10/24 cholecalciferol (vitamin D3) 50 50 mcg PO DAILY 09/28/22 02/10/24 mcg (2,000 unit) capsule gabapentin 100 mg capsule 100 mg PO DAILY 09/28/22 02/10/24 metoprolol tartrate 25 mg tablet 25 mg PO BID 09/28/22 02/10/24 nebulizers 05/23/23 02/10/24 budesonide 0.5 mg/2 mL suspension 0.5 mg inhalation DAILY shortness 09/20/23 02/10/24 for nebulization of breath Previous Rx's ?Medication ?Instructions ?Recorded fluticasone fur. 200 mcg-umeclid 1 inh inhalation DAILY 30 days #60 07/22/23 62.5 mcg-vilant 25 mcg ea inhalat.powder (Trelegy Ellipta) ondansetron 8 mg disintegrating 8 mg PO Q8H nausea #30 tabs 04/20/24 tablet Allergies Allergy/AdvReac Type Severity Reaction Status Date / Time No Known Allergies Allergy Verified 05/11/24 14:47 Review of Systems Review of Systems: Review of systems: General: Patient denies any fever chills recent illness or falls Musculoskeletal: Denies back pain or body aches or other injuries HEENT: denies headache, runny nose, ear pain Respiratory: denies shortness of breath, cough Cardiovascular: no chest pain or palpitations : denies dysuria, frequency Abdomen: no nausea vomiting denies abdominal pain Extremities: no swelling, no pain Skin: no diaphoresis Yes all other systems are reviewed and are negative PMFSH Past Medical History Medical History (Updated 05/11/24 @ 19:16 by Alfonzo Murillo DO) CAD (coronary artery disease) Colon adenocarcinoma Pneumonia COPD (chronic obstructive pulmonary disease) Blood D-dimer assay positive Chronic respiratory failure Pulmonary nodules Surgical History S/P colon resection Family History Family History Sister Dementia Breast cancer Father Emphysema lung Mother Social History Social History Household Members: Spouse Housing: House Patient Tobacco Use Status: Former Tobacco user Tobacco use type: Cigarette Use of substances other than those prescribed or required for medical reasons: No Have you been hit, kicked, punched, or otherwise hurt by someone within the past year? If so, by whom?: No Do you feel safe in your current relationship?: Yes Do you have thoughts of harming others: None Do you have a plan to hurt others: No Plan Do you have the means to hurt others: No Recently lost weight without trying: Yes How much weight loss: 24-33 pounds Eating poorly because of decreased appetite: No Nutrition screen score: 5 service: No Current occupational status: retired Physical Exam Vital Signs: Vital Signs: Last Vital Signs Temp 98.2 F 05/11/24 14:49 Pulse 73 05/11/24 18:14 Resp 22 H 05/11/24 18:14 BP 123/58 L 05/11/24 18:14 Pulse Ox 95 05/11/24 18:14 O2 Del Method Room Air 05/11/24 18:14 O2 Flow Rate 2 05/11/24 17:31 Oxygen Flow Rate 2 05/11/24 14:43 BMI result Body Mass Index 19.7 General: Well-appearing well-nourished in no signs of distress HEENT: Normocephalic atraumatic Neck: No signs of JVD, no masses no tenderness or lymphadenopathy Cardiovascular: Regular rate and rhythm Respiratory: Clear to auscultation bilaterally Abdomen: Soft nontender no masses Extremities: Normal pedal pulses no signs of edema Skin: Dry warm no rashes Back: No tenderness full ROM Course Course Course Narrative: 1641 concern for pneumonia I will start the patient on Rocephin and doxycycline. Reevaluation(s) Reevaluation #1: Patient's CT does not show PE patient will be admitted to Medicine for hypoxia and pneumonia. Reevaluation #2: 1920 I discussed case with hospitalist who agrees with plan for admission Patient continues to feel well comfortable while on oxygen I will admit the patient to the medicine service. Medications Administered Discontinued Medications Generic Name Dose Route Start Last Admin Trade Name Freq PRN Reason Stop Dose Admin Doxycycline Monohydrate 100 mg 05/11/24 16:41 05/11/24 17:26 Doxycycline Monohydrate 100 Mg Capsule PO 05/11/24 16:42 100 mg ONCE ONE Administration Ceftriaxone Sodium 1 gm/ 50 mls @ 100 mls/hr 05/11/24 16:41 05/11/24 18:14 Sodium Chloride IV 05/11/24 17:10 Infused ONCE ONE Infusion Iohexol 100 ml 05/11/24 18:25 05/11/24 18:25 Iohexol 350 Mg/Ml 100 Ml Infus..Btl IV 05/11/24 18:26 65 ml ONCE ONE Administration Medical Decision Making Medical Decision Making [facility] Narrative: I will start the patient on fluids go patient for CTA and reassess Differential Diagnosis Differential Diagnoses: The differential diagnosis associated with the presentation includes PE ACS chest pain shortness breath pneumonia pneumonitis Admission/Observation Consideration of admission/observation: Escalation of care including admission/observation considered I spoke with Dr. Robertson about the patient. Consult Healthcare Provider Management of the patient was discussed with: Hospitalist and [employer] Operator Lab Data [facility] Lab Attestation statement: I reviewed the patient's lab results. 05/11/24 15:55 05/11/24 15:55 Labs: Lab Results 05/11/24 05/11/24 05/11/24 Range/Units 15:50 15:55 17:29 WBC 6.5 (4.8-10.8) X10*3/uL RBC 4.53 (4.20-5.50) X10*6/uL Hgb 12.8 (12.0-16.0) g/dl Hct 38.9 (37.0-47.0) % MCV 85.9 (80.0-98.0) fL MCH 28.3 (27.0-33.0) pg MCHC 32.9 (31.0-35.0) g/dl RDW 13.1 (11.0-16.0) % Plt Count 337 (160-400) X10*3/uL MPV 9.0 L (9.4-12.3) fL Immature Gran % (Auto) 1.1 H (0.0-0.4) % Neut % (Auto) 75.8 H (45-73) % Lymph % (Auto) 14.8 L (20-40) % [place] % (Auto) 8.0 (2-11) % Eos % (Auto) 0.0 (0-4) % Baso % (Auto) 0.3 (0-2) % Lymph # (Auto) 1.0 L (1.2-4.9) X10*3/uL [place] # (Auto) 0.5 (0.1-1.2) X10*3/uL Eos # (Auto) 0.0 (0.0-0.4) X10*3/uL Baso # (Auto) 0.0 (0.0-0.2) X10*3/uL Abs Immat Gran (auto) 0.07 H (0.00-0.03) X10*3/uL Absolute Neuts (auto) 4.9 (2.0-8.3) x10*3/uL Absolute Nucleated RBC 0.000 (0.0-0.012) X10*3/uL Nucleated RBC % (auto) 0.0 (0.0-0.2) /100WBC Sodium 140 (135-145) mmol/L Potassium 3.4 (3.3-5.1) mmol/L Chloride 100 (96-108) mmol/L Carbon Dioxide 30 H (22-29) mmol/L Anion Gap 13 (12-20) BUN 11 (9-16) mg/dL Creatinine 0.75 (0.5-1.4) mg/dL Estim Creat Clear Calc 51.7 Estimated GFR > 60 Random Glucose 136 H (60-115) mg/dL Calcium 9.6 D (8.4-10.2) mg/dL Magnesium 2.1 (1.6-2.6) mg/dL Total Bilirubin 0.5 (0.0-1.0) mg/dL AST 40 H (5-31) U/L ALT 35 H (0-31) U/L Alkaline Phosphatase 221 H (39-117) U/L Troponin I High Sens < 2.7 (<3.5-17.0) ng/L Total Protein 7.1 (6.5-8.0) g/dL Albumin 3.4 L (3.5-5.0) g/dL Urine Color Dark Yellow Urine Appearance Cloudy Urine pH 5.5 (5.0-9.0) Ur Specific [place] 1.020 (1.005-1.025) Urine Protein 30 (1+) H (Neg-Trace) mg/dL Urine Glucose (UA) Negative (Negative) mg/dL Urine Ketones Trace (Negative) mg/dL Urine Blood Moderate (2+) H (Negative) Urine Nitrite Negative (Negative) Ur Leukocyte Esterase Small (1+) H (Negative) Urine RBC >20 H (0-2) /HPF Urine WBC 0-5 (0-5) /HPF Ur Squamous Epith Cells 11-20 (0-2) /HPF Urine Bacteria None Seen (None Seen) Hyaline Casts 0-2 (0-2) /LPF Influenza Type A (PCR) NEGATIVE (Negative) Influenza Type B (PCR) NEGATIVE (Negative) RSV RNA Qual (PCR) NEGATIVE (Negative) SARS-CoV-2 RNA (RT-PCR) NEGATIVE (Negative) Independent Interpretation I performed an independent interpretation of an: EKG and CT Scan Interpretation: Rate 81 normal intervals with some ectopy no signs of ischemia no previous for comparison interpreted by me Radiology Impression Discussion of test interpretation with radiology: I have reviewed the radiologist's reading. External Record Review External record reviewed: Inpatient record, Office record and Outpatient record Chronic Conditions Patient?s care impacted by: Cancer Social Determinants Patient?s care significantly limited by Social Determinants of Health including: Other Social Determinant of Health Discharge Plan Discharge Clinical Impression: Pneumonitis, Hypoxia Pneumonia Qualifiers: Pneumonia type: due to unspecified organism Laterality: unspecified laterality Lung location: unspecified part of lung Qualified Code(s): J18.9 - Pneumonia, unspecified organism Patient Disposition: Admitted As Inpatient Print Language: Mongolian
[2024-05-11 14:49] VITALS: BP 119/72; PULSE 74; RESP 16; TEMP 36.8; O2SAT 94
[2024-05-11 16:08] LABS: MANUAL DIFF FLAG NO
[2024-05-11 16:12] LABS: Basophils Percent Auto 0.3 % (0-2); Hematocrit 38.9 % (37.0-47.0); Hemoglobin 12.8 g/dl (12.0-16.0); Imm Gran Abs Auto 0.07 X10*3/uL (0.00-0.03); Imm Gran Pct Auto 1.1 % (0.0-0.4); Lymphocytes Percent Auto 14.8 % (20-40); Mean Corpuscular HGB Conc 32.9 g/dl (31.0-35.0); Mean Corpuscular Hemoglobin 28.3 pg (27.0-33.0); Mean Corpuscular Volume 85.9 fL (80.0-98.0); Monocytes Absolute Auto 0.5 X10*3/uL (0.1-1.2); Neutrophils Absolute Auto 4.9 x10*3/uL (2.0-8.3); Neutrophils Percent Auto 75.8 % (45-73); Platelet Count 337 X10*3/uL (160-400); Red Blood Count 4.53 X10*6/uL (4.20-5.50); Red Cell Distribution Width 13.1 % (11.0-16.0); White Blood Count 6.5 X10*3/uL (4.8-10.8)
[2024-05-11 16:14] LABS: Appearance Urine Cloudy; Color Urine Dark Yellow; Glucose Urine UA Negative (Negative); Leukocyte Esterase Urine Small (1+) (Negative); Nitrite Urine Negative (Negative); PH 5.5 (5.0-9.0); UMIC TRIGGER UACC YES; Urine Blood Moderate (2+) (Negative); Urine Ketones Trace mg/dL (Negative); Urine Protein 30 (1+) mg/dL (Neg-Trace)
[2024-05-11 16:31] LABS: Alanine Aminotransferase 35 U/L (0-31); Alkaline Phosphatase 221 U/L (39-117); Anion Gap 13 (12-20); Aspartate Amino Transferase 40 U/L (5-31); Bilirubin Total 0.5 mg/dL (0.0-1.0); Blood Urea Nitrogen 11 mg/dL (9-16); Calcium 9.6 mg/dL (8.4-10.2); Carbon Dioxide 30 mmol/L (22-29); Chloride 100 mmol/L (96-108); Creatinine Clr Calc Pharmacy 51.7; Estimated Glomerular Filt Rate > 60; Glucose Random 136 mg/dL (60-115); Magnesium 2.1 mg/dL (1.6-2.6); Potassium 3.4 mmol/L (3.3-5.1); Sodium 140 mmol/L (135-145); Total Protein 7.1 g/dL (6.5-8.0)
[2024-05-11 16:33] LABS: Troponin-I High Sensitivity < 2.7 ng/L (<3.5-17.0)
--- NOTE | 2024-05-11 16:33 | PC.NURSE ---
Pt comes to ED today from Oncology appt with c/o shortness of breath. A&Ox3, VSS, 94% on 2L via NC. Blood labs drawn, 20g LAC placed. Pt awaiting imaging.
[2024-05-11 16:52] LABS: Bacteria Urine None Seen (None Seen); Hyaline Casts Urine 0-2 /LPF (0-2); RBC Urine >20 /HPF (0-2); UACC Culture Trigger YES; WBC Urine 0-5 /HPF (0-5)
[2024-05-11 16:53] LABS: Albumin Level 3.4 g/dL (3.5-5.0)
[2024-05-11] MEDS: cefTRIAXone sodium 1 GM in 0.9 % Sodium Chloride 50 ML IV (17:00)
[2024-05-11] MEDS: Doxycycline Monohydrate 100 MG CAPSULE PO (17:26)
[2024-05-11 17:31] VITALS: BP 115/61; PULSE 79; RESP 15; O2SAT 95
[2024-05-11 18:14] VITALS: BP 123/58; PULSE 73; RESP 22; O2SAT 95
[2024-05-11 18:17] LABS: Influenza A PCR NEGATIVE (Negative); Influenza B PCR NEGATIVE (Negative); Resp Syncy Virus RNA Qual PCR NEGATIVE (Negative); SARS COV2 PCR INHOUSE NEGATIVE (Negative)
[2024-05-11] MEDS: iohexoL 350 MG/ML 100 ML INFUS..BTL IV (18:25)
[2024-05-11 20:00] VITALS: BP 106/52; PULSE 78; RESP 16; TEMP 36.8; O2SAT 96
--- NOTE | 2024-05-11 20:04 | PHA.MEDREC ---
Addendum entered by Cody Vazquez [facility] 05/11/24 20:32: MED REC DOUBLE CHECKED BY [facility] Original Note: Pharmacy Consult ? Medication Reconciliation Pharmacy has completed the medication reconciliation. Spoke to patient to confirm med list. Patient states she is no longer on Budesonide 0.5 mg daily and ondansertron 8 mg Q8h PRN. Patient says she has her medication with her and took her evening medication just now. Advised the patient to NOT take any medication on her own, the DR will continue her medication here.
--- NOTE | 2024-05-11 20:43 | P.HPHOSP_ITS ---
History of Present Illness Date of Service: 05/11/24 Attending physician on admission: Kenya Jay Chief Complaint: Generalized weakness tinal or genitourinary symptoms. She is a former tobacco smoker. Denies vaping, alcohol or illicit drug use. In the ED, she was found to have oxygen saturation 87% on room air and currently requiring 2 liters/minute supplemental oxygen via nasal cannula. Other vital signs are normal. Blood workup showed no leukocytosis or bandemia. Hemoglobin and platelets are normal. There are no significant electrolyte imbalances. CO2 is 30. Transaminases slightly elevated as well as ALk phos. Renal function is normal and troponin is negative. UA showed protein 1+, ketones trace, blood moderate, nitrite negative, leukocyte esterase 1+ and RBC over 20. CXR showed new right upper lobe consolidative and resolution of right lower lobe consolidation. Pulmonary CTA showed no evidence of PE, however, it showed dense consolidation of the right lower lobe suggesting infectious etiology. ED tx: Doxycycline 100 mg p.o., ceftriaxone 1 g IV. Review of Systems 2 Review of Systems: All 12 systems were reviewed and normal except as noted in HPI. [facility] Medical History (Updated 05/11/24 @ 21:02 by Kenya Jay MD) CAD (coronary artery disease) Colon adenocarcinoma Pneumonia COPD (chronic obstructive pulmonary disease) Blood D-dimer assay positive Chronic respiratory failure Pulmonary nodules Family History Sister Dementia Breast cancer Father Emphysema lung Mother Surgical History S/P colon resection Social History Household Members: Spouse Housing: House Patient Tobacco Use Status: Former Tobacco user Tobacco use type: Cigarette Smoked in Last 30 Days: No Use of substances other than those prescribed or required for medical reasons: No Advance Directives: No Advance Directives Information Provided: Yes Do you have a plan to hurt others: No Plan service: No Current occupational status: retired Meds Allergies Allergy/AdvReac Type Severity Reaction Status Date / Time No Known Allergies Allergy Verified 05/11/24 14:47 Active Medications: Current Medications Acetaminophen (Acetaminophen 325 Mg Tablet) 975 mg PO Q6H PRN PRN Reason: Pain, Mild (Pain Scale 1-3), fever or headache Aspirin (Aspirin Enteric Coated 81 Mg Tablet.) 81 mg PO DAILY [facility] Atorvastatin Calcium (Atorvastatin Calcium 80 Mg Tablet) 80 mg PO DAILY [facility] Fluticasone/Umeclidinium/Vilanterol (Fluticasone/Umeclidinium/Vilanterol 200/62.5/25 Blst.W.Dev) 1 puff INHALE RDAILY [facility] Gabapentin (Gabapentin 300 Mg Capsule) 300 mg PO DAILY [facility] Heparin Sodium (Porcine) (Heparin Sodium,Porcine 5,000 Unit/Ml Vial) 5,000 unit SUBCUT Q12H [facility] Ceftriaxone Sodium 1 gm/ (Sodium Chloride) 50 mls @ 100 mls/hr IV Q24H [facility] Azithromycin 500 mg/ Sodium (Chloride) 250 mls @ 125 mls/hr IV DAILY [facility] Melatonin (Melatonin 3 Mg Tablet) 6 mg PO BEDTIME PRN PRN Reason: Insomnia Metoprolol Tartrate (Metoprolol Tartrate 25 Mg Tablet) 25 mg PO BID [facility]; Protocol Sodium Chloride (0.9 % Sodium Chloride Flush 3 Ml Syringe) 3 ml IVFLUSH QSHIFT [facility] Vitamin D (Cholecalciferol (Vitamin D3) 25 Mcg Tablet) 50 mcg PO DAILY [facility] Home Medications ?Medication ?Instructions ?Recorded ?Confirmed ?Last Taken ?Type aspirin 81 mg tablet,delayed 81 mg PO DAILY 09/28/22 05/11/24 05/11/24 History release atorvastatin 80 mg tablet 80 mg PO DAILY 09/28/22 05/11/24 05/11/24 History cholecalciferol (vitamin D3) 50 50 mcg PO DAILY 09/28/22 05/11/24 05/11/24 History mcg (2,000 unit) capsule metoprolol tartrate 25 mg tablet 25 mg PO BID 09/28/22 05/11/24 05/11/24 History nebulizers 05/23/23 02/10/24 Unknown History gabapentin 300 mg capsule 300 mg DAILY 05/11/24 05/11/24 05/11/24 History Physical Exam 2 Vital Signs and Narrative: Vital Signs: Last Vital Signs Temp 98.3 F 05/11/24 20:00 Pulse 78 05/11/24 20:00 Resp 16 05/11/24 20:00 BP 106/52 L 05/11/24 20:00 Pulse Ox 96 05/11/24 20:00 O2 Del Method Nasal Cannula 05/11/24 20:00 O2 Flow Rate 2 05/11/24 20:00 Oxygen Flow Rate 2 05/11/24 14:43 BMI result Body Mass Index 19.7 Constitutional - Awake and Alert, No apparent distress. Afebrile. NC in place HEENT - PERRLA, EOMI. Normal sclerae. Heart - S1S2, RRR, No edema Lungs - Normal lung expansion, Normal respiratory effort, No respiratory distress, no tachypnea. Right lower lobe crackles. No wheezing or rhonchi. Abdomen - NT / ND; +BS; No rebound or guarding Extremities - no calf tenderness bilaterally, no swelling Musculoskeletal - Normal inspection, normal ROM Skin - Warm/Dry Neurological - Alert & oriented x3. No focal weakness grossly noted. Normal speech. Psychological - Appropriate affect Results Labs 05/11/24 15:55 05/11/24 15:55 Labs: Laboratory Results - last 24 hr 05/11/24 05/11/24 05/11/24 15:50 15:55 17:29 MCV 85.9 MCH 28.3 MCHC 32.9 RDW 13.1 Plt Count 337 MPV 9.0 L Immature Gran % (Auto) 1.1 H Neut % (Auto) 75.8 H Lymph % (Auto) 14.8 L [place] % (Auto) 8.0 Eos % (Auto) 0.0 Baso % (Auto) 0.3 Lymph # (Auto) 1.0 L [place] # (Auto) 0.5 Eos # (Auto) 0.0 Baso # (Auto) 0.0 Abs Immat Gran (auto) 0.07 H Absolute Neuts (auto) 4.9 Absolute Nucleated RBC 0.000 Nucleated RBC % (auto) 0.0 Anion Gap 13 Estim Creat Clear Calc 51.7 Estimated GFR > 60 Random Glucose 136 H Calcium 9.6 D Magnesium 2.1 Total Bilirubin 0.5 AST 40 H ALT 35 H Alkaline Phosphatase 221 H Troponin I High Sens < 2.7 Total Protein 7.1 Albumin 3.4 L Urine Color Dark Yellow Urine Appearance Cloudy Urine pH 5.5 Ur Specific [place] 1.020 Urine Protein 30 (1+) H Urine Glucose (UA) Negative Urine Ketones Trace Urine Blood Moderate (2+) H Urine Nitrite Negative Ur Leukocyte Esterase Small (1+) H Urine RBC >20 H Urine WBC 0-5 Ur Squamous Epith Cells 11-20 Urine Bacteria None Seen Hyaline Casts 0-2 Influenza Type A (PCR) NEGATIVE Influenza Type B (PCR) NEGATIVE RSV RNA Qual (PCR) NEGATIVE SARS-CoV-2 RNA (RT-PCR) NEGATIVE Imaging Radiologist's Impressions: Impressions Chest X-Ray 05/11/24 15:06 IMPRESSION: 1. New right upper lobe consolidation. 2. Resolution of right lower lobe consolidation. Chest CTA 05/11/24 18:32 IMPRESSION: 1. No evidence for pulmonary emboli. 2. Dense consolidation in the right lower lobe suggesting infectious etiology. 3. VTE: Negative. Assessment and Plan (1) Hypoxia: Status: Acute (2) Pneumonia: Qualifiers: Pneumonia type: due to unspecified organism Laterality: unspecified laterality Lung location: unspecified part of lung Qualified Code(s): J18.9 - Pneumonia, unspecified organism Status: Acute (3) COPD (chronic obstructive pulmonary disease): Qualifiers: COPD type: chronic bronchitis Chronic bronchitis type: simple Q ualified Code(s): J41.0 - Simple chronic bronchitis Status: Acute (4) Colon cancer: Qualifiers: Colon location: unspecified part of colon Qualified Code(s): C18.9 - Malignant neoplasm of colon, unspecified Status: Chronic Plan Zoya Pena is a 78 y/o woman with PMHx significant for colon cancer on immunotherapy s/p right hemicolectomy with end ileostomy followed by Dr. Reagan admitted with: * Hypoxic secondary to right lower lobe pneumonia in the setting of immunocompromised state/colon cancer on immunotherapy. Admit to hospitalist service. Pulse oximetry. Supplemental O2 to keep O2 sats > 90%. Continue IV antibiotics: Ceftriaxone and azithromycin. Bronchodilator therapy as needed. * Elevated transaminases and alk-phos, mild. Mets? Continue to monitor for now. * COPD. Not in acute exacerbation. Continue home inhalers. * CAD. Continue statin, aspirin and metoprolol. * Neuropathy. Continue gabapentin. DVT prophylaxis: Heparin Code status: Full Patient will need hospitalization for at least 2 midnights for right lower lobe pneumonia treatment with IV antibiotics in the setting of immunocompromised state. Quality Stroke Does the patient have a stroke diagnosis?: No VTE Prior VTE?: No VTE Risk Level:: Medical - moderate - high VTE Device Contraindication: Treatment Not Indicated VTE Drug Contraindication: N/A - Med Ordered
[2024-05-11 22:24] VITALS: BP 141/81; PULSE 78; RESP 16; TEMP 36.6; O2SAT 96
[2024-05-11 22:25] VITALS: BMI 19.3
[2024-05-12] VITALS (9 sets, daily range): BP systolic 100–112; BP diastolic 53–65; PULSE 75–88; RESP 15–18; TEMP 36.1–36.4; O2SAT 94–96
[2024-05-12] MEDS: 0.9 % Sodium Chloride Flush 3 ML SYRINGE IVFLUSH ×4 (00:01→19:20)
[2024-05-12 06:28] LABS: MANUAL DIFF FLAG NO
[2024-05-12 06:45] LABS: Basophils Percent Auto 0.5 % (0-2); Hematocrit 36.2 % (37.0-47.0); Hemoglobin 11.8 g/dl (12.0-16.0); Imm Gran Abs Auto 0.09 X10*3/uL (0.00-0.03); Imm Gran Pct Auto 1.5 % (0.0-0.4); Lymphocytes Absolute Auto 0.8 X10*3/uL (1.2-4.9); Mean Corpuscular HGB Conc 32.6 g/dl (31.0-35.0); Mean Corpuscular Hemoglobin 28.2 pg (27.0-33.0); Mean Corpuscular Volume 86.6 fL (80.0-98.0); Monocytes Absolute Auto 0.7 X10*3/uL (0.1-1.2); Monocytes Percent Auto 11.4 % (2-11); Neutrophils Absolute Auto 4.3 x10*3/uL (2.0-8.3); Neutrophils Percent Auto 72.6 % (45-73); Platelet Count 322 X10*3/uL (160-400); Red Blood Count 4.18 X10*6/uL (4.20-5.50); Red Cell Distribution Width 13.2 % (11.0-16.0); White Blood Count 5.9 X10*3/uL (4.8-10.8)
[2024-05-12 06:46] LABS: Alanine Aminotransferase 38 U/L (0-31); Alkaline Phosphatase 203 U/L (39-117); Anion Gap 15 (12-20); Aspartate Amino Transferase 41 U/L (5-31); Bilirubin Total 0.4 mg/dL (0.0-1.0); Blood Urea Nitrogen 10 mg/dL (9-16); Carbon Dioxide 31 mmol/L (22-29); Chloride 100 mmol/L (96-108); Creatinine Clr Calc Pharmacy 49.9; Estimated Glomerular Filt Rate > 60; Glucose Random 124 mg/dL (60-115); Potassium 3.8 mmol/L (3.3-5.1); Sodium 142 mmol/L (135-145); Total Protein 6.5 g/dL (6.5-8.0)
[2024-05-12] MEDS: Metoprolol Tartrate 25 MG TABLET PO ×2 (09:07→20:16)
[2024-05-12] MEDS: Atorvastatin Calcium 80 MG TABLET PO (09:08)
[2024-05-12] MEDS: Azithromycin 500 MG in 0.9 % Sodium Chloride 250 ML 125 MG IV (09:08)
[2024-05-12] MEDS: Cholecalciferol (Vitamin D3) 25 MCG TABLET 50 MCG PO (09:08)
[2024-05-12] MEDS: Heparin Sodium,Porcine 5,000 UNIT/ML VIAL 5000 UNIT SUBCUT (09:08)
[2024-05-12] MEDS: Aspirin Enteric Coated 81 MG TABLET.DR PO (09:08)
--- NOTE | 2024-05-12 09:17 | PM.HEMONCCN ---
Subjective - Subjective Chief complaint: Weakness Patient: known to practice within the last 3 years Consult date: 05/12/24 Primary Care Provider: Brandon Buenrostro DO, MD HPI - Consult Narrative Reason for consult: Metastatic colon cancer, on treatment Narrative: Zoya Pena is a 78 year old female with history of metastatic colon cancer diagnosed in 11/26/2023. She has been through multiple rounds of chemo/immunotherapy as well as surgical procedures. She was recently started on immunotherapy, she received her 1st cycle 3 weeks ago. She has a past history of pneumonitis secondary to pembrolizumab. She presented to Oncology Clinic with complaints of weakness and hypoxemia. She was noted to have O2 sats of 87% on room air. She did not have any complaints of cough. She was very weak and therefore was not exerting herself. She was exposed to COVID-19 infection but she did test herself at home and it was negative. Her appetite has been poor in the last few days. No diarrhea or abdominal discomfort. No nausea or emesis. Review of Systems - Constitutional Reports as per HPI, Reports lack of energy, Reports malaise - Cardiovascular Reports no additional cardiovascular complaints - Respiratory Reports no additional respiratory complaints [facility] Medical History: Medical History (Last Reviewed 02/10/24 @ 11:25 by Lebron Chan) Blood D-dimer assay positive CAD (coronary artery disease) Chronic respiratory failure Colon adenocarcinoma COPD (chronic obstructive pulmonary disease) Pneumonia Pulmonary nodules Family History: Family History (Last Reviewed 02/10/24 @ 11:25 by Lebron Chan) Sister Dementia Breast cancer Father Emphysema lung Mother Surgical History: Surgical History (Last Reviewed 02/10/24 @ 11:25 by Lebron Chan) S/P colon resection Social History: Social History (Last Reviewed 02/10/24 @ 11:25 by Lebron Chan) Living Situation History: Household Members: Family Household Members Other:: granddaughter Housing: House Do you presently have visiting nurse or other home services: No Tobacco History: Patient Tobacco Use Status: Former Tobacco user Tobacco use type: Cigarette Occupation Assessmet: service: No Current occupational status: retired Home Medications and Allergies Current Medications: Current Medications Acetaminophen (Acetaminophen 325 Mg Tablet) 975 mg PO Q6H PRN PRN Reason: Pain, Mild (Pain Scale 1-3), fever or headache Albuterol/Ipratropium (Albuterol/Iprat 2.5/0.5mg 3 Ml Ampul.Neb) 3 ml INHALE Q4H PRN PRN Reason: Shortness of Breath/Wheezing Aspirin (Aspirin Enteric Coated 81 Mg Tablet.Dr) 81 mg PO DAILY [facility] Atorvastatin Calcium (Atorvastatin Calcium 80 Mg Tablet) 80 mg PO DAILY [facility] Fluticasone/Umeclidinium/Vilanterol (Fluticasone/Umeclidinium/Vilanterol 200/62.5/25 Blst.W.Dev) 1 puff INHALE RDAILY [facility] Gabapentin (Gabapentin 300 Mg Capsule) 300 mg PO DAILY [facility] Heparin Sodium (Porcine) (Heparin Sodium,Porcine 5,000 Unit/Ml Vial) 5,000 unit SUBCUT Q12H [facility] Ceftriaxone Sodium 1 gm/ (Sodium Chloride) 50 mls @ 100 mls/hr IV Q24H [facility] Azithromycin 500 mg/ Sodium (Chloride) 250 mls @ 125 mls/hr IV DAILY [facility] Melatonin (Melatonin 3 Mg Tablet) 6 mg PO BEDTIME PRN PRN Reason: Insomnia Metoprolol Tartrate (Metoprolol Tartrate 25 Mg Tablet) 25 mg PO BID [facility]; Protocol Sodium Chloride (0.9 % Sodium Chloride Flush 3 Ml Syringe) 3 ml IVFLUSH QSHIFT [facility] Last Admin: 05/12/24 00:01 Dose: 3 ml Vitamin D (Cholecalciferol (Vitamin D3) 25 Mcg Tablet) 50 mcg PO DAILY [facility] Home Medications ?Medication ?Instructions ?Recorded ?Confirmed ?Type aspirin 81 mg tablet,delayed 81 mg PO DAILY 09/28/22 05/11/24 History release atorvastatin 80 mg tablet 80 mg PO DAILY 09/28/22 05/11/24 History cholecalciferol (vitamin D3) 50 50 mcg PO DAILY 09/28/22 05/11/24 History mcg (2,000 unit) capsule metoprolol tartrate 25 mg tablet 25 mg PO BID 09/28/22 05/11/24 History nebulizers 05/23/23 02/10/24 History gabapentin 300 mg capsule 300 mg DAILY 05/11/24 05/11/24 History Allergies Allergy/AdvReac Type Severity Reaction Status Date / Time No Known Allergies Allergy Verified 05/11/24 14:47 Physical Exam Vital signs: Vital Signs Temp 97.6 F 05/12/24 08:18 Pulse 88 05/12/24 09:07 Resp 18 05/12/24 08:18 BP 110/59 L 05/12/24 09:07 Pulse Ox 94 05/12/24 08:18 O2 Del Method Nasal Cannula 05/12/24 08:18 O2 Flow Rate 2 05/12/24 08:18 Intake & Output 05/11/24 05/12/24 05/12/24 18:59 06:59 18:59 Intake Total 50 / 450 400 / 450 Balance 50 / 450 400 / 450 Intake: Intake, Oral Amount 400 / 400 Intake, IV Amount 50 / 50 cefTRIAXone sodium 1 gm In 0.9 50 / 50 % Sodium Chloride 50 ml @ 100 mls/hr IV ONCE ONE Rx#: [id number] Other: Number of Unmeasured Voids 2 Urine Bathroom Last Bowel Movement 05/11/24 Weight 52.163 kg 51 kg [place] Weight in Grams 17949 Weight 51 kg - Constitutional Present: no acute distress - Routine HEENT Exam Eye: Present: EOMI - Routine Neck Exam Absent: lymphadenopathy - Routine Respiratory Exam Present: CTAB, rhonchi. Absent: accessory muscle use - Routine Cardiovascular Exam Cardiovascular: Present: S1, S2 - Routine Abdominal Exam Present: soft Hem/Onc Consult Result - Labs CBC & Chem 7: 05/12/24 05:59 05/12/24 05:59 Labs: Short CBC 05/11/24 05/12/24 Range/Units 15:55 05:59 WBC 6.5 5.9 (4.8-10.8) X10*3/uL Hgb 12.8 11.8 L (12.0-16.0) g/dl Hct 38.9 36.2 L (37.0-47.0) % Plt Count 337 322 (160-400) X10*3/uL BMP 05/11/24 05/12/24 15:55 05:59 Sodium 140 142 Potassium 3.4 3.8 Chloride 100 100 Carbon Dioxide 30 H 31 H BUN 11 10 Creatinine 0.75 0.76 Calcium 9.6 D 9.0 D Liver Function 05/11/24 05/12/24 Range/Units 15:55 05:59 Total Bilirubin 0.5 0.4 (0.0-1.0) mg/dL AST 40 H 41 H (5-31) U/L ALT 35 H 38 H (0-31) U/L Alkaline Phosphatase 221 H 203 H (39-117) U/L Albumin 3.4 L 3.0 L (3.5-5.0) g/dL Urine 05/11/24 Range/Units 15:50 Urine Color Dark Yellow Urine Appearance Cloudy Urine pH 5.5 (5.0-9.0) Ur Specific [place] 1.020 (1.005-1.025) Urine Protein 30 (1+) H (Neg-Trace) mg/dL Urine Glucose (UA) Negative (Negative) mg/dL Assessment and Plan Patient Active problem list reviewed?: Yes (1) Colon cancer Status: Chronic Assessment and plan: 1. This is a pleasant 78-year-old woman with metastatic adenocarcinoma of ascending colon presenting with bowel perforation in November 2022. She underwent emergent surgical resection with Dr. Sanchez, final pathological [id number] N2b, stage IIIC. She completed 2 cycles of FOLFOX regimen until 02/13/2023. Because of poor tolerance, she started pembrolizumab on 03/18/2023. She developed pneumonitis after 1st cycle and was hospitalized for a few days. She was treated with high-dose steroids. She underwent reversal of colostomy on 08/26/2023. Pathology report from 09/03/2023-peritoneal nodule excision-fat necrosis, no evidence of malignancy. Ileocolonic anastomosis with end ileostomy reversal: Segment of loop, unremarkable. She completed radiation therapy to tumor outside her right kidney at [facility] on December 19. PET scan performed at [facility] on 02/25/2024 metastasis. She was recommended encorafenib with cetuximab, she was prescribed this in June last year but patient did not take it as she underwent reversal of colostomy and subsequent radiation therapy to lymph node in the abdomen. She received 1st dose of pembrolizumab 3 weeks ago. She is now admitted with hypoxemia and weakness. CT of chest shows no pulmonary emboli, dense consolidation in the right lower lobe. Has been started on ceftriaxone and azithromycin. She continues to require oxygen. I have recommended pulmonary consultation. She may need to be started back on steroids if she has underlying pneumonitis as well, await Pulmonary input. Thank you for the consult. - Time Spent With Patient Time Spent with Patient (in minutes): 15
[2024-05-12] MEDS: ondansetron HCL 4 MG/2 ML VIAL IVPUSH (11:39)
[2024-05-12] MEDS: Fluticasone/Umeclidinium/Vilanterol 200/62.5/25 BLST.W.DEV 1 PUFF INHALE (11:43)
--- NOTE | 2024-05-12 12:11 | MHC.CLN ---
RE: CONSULT POOR PO RECOMMEND ADDING ENSURE BID TO INCREASE KCALS SUPP PROVIDES 700KCALS, 40G PROTEIN MONITOR PO INTAKE
--- NOTE | 2024-05-12 14:18 | PC.NURSE ---
Implanted port de-accessed per protocol at 1405. Patient tolerated well.
--- NOTE | 2024-05-12 16:04 | P.PNIM_ITS ---
Subjective Subjective Date of Service: 05/12/24 Interval History: copd excerebation Review of Systems sob seems similar has dry cough no fevers Physical Exam 2 Vital Signs: Vital Signs: Last Vital Signs Temp 97.6 F 05/12/24 08:18 Pulse 79 05/12/24 11:44 Resp 15 05/12/24 11:44 BP 110/59 L 05/12/24 09:07 Pulse Ox 94 05/12/24 08:18 O2 Del Method Nasal Cannula 05/12/24 08:18 O2 Flow Rate 2 05/12/24 08:18 Oxygen Flow Rate 2 05/11/24 14:43 BMI result Body Mass Index 19.3 Appearance: Alert.? Oriented X3.? cvs: rrr, [id number]. res: air entry fair ,diminshed right >left. abd: no rebound or guarding ,nt, bs present. ext pulses present , no cyanosis . neuro: axo3 , nonfocal. Objective Data Active Medications Acetaminophen (Acetaminophen 325 Mg Tablet) 975 mg PO Q6H PRN PRN Reason: Pain, Mild (Pain Scale 1-3), fever or headache Albuterol/Ipratropium (Albuterol/Iprat 2.5/0.5mg 3 Ml Ampul.Neb) 3 ml INHALE Q4H PRN PRN Reason: Shortness of Breath/Wheezing Aspirin (Aspirin Enteric Coated 81 Mg Tablet.) 81 mg PO DAILY [facility] Last Admin: 05/12/24 09:08 Dose: 81 mg Documented By: PALLAVI Atorvastatin Calcium (Atorvastatin Calcium 80 Mg Tablet) 80 mg PO DAILY [facility] Last Admin: 05/12/24 09:08 Dose: 80 mg Documented By: PALLAVI Heparin Sodium (Porcine) 500 (unit/ Sodium Chloride 5 ml) 0 unit IVFLUSH ONCE PRN PRN Reason: Infusion Center Last Admin: 05/12/24 13:57 Dose: 5 unit Documented By: PALLAVI Fluticasone/Umeclidinium/Vilanterol (Fluticasone/Umeclidinium/Vilanterol 200/62.5/25 Blst.W.Dev) 1 puff INHALE RDAILY [facility] Last Admin: 05/12/24 11:43 Dose: 1 puff Documented By: BRYSON Gabapentin (Gabapentin 300 Mg Capsule) 300 mg PO BEDTIME [facility] Heparin Sodium (Porcine) (Heparin Sodium,Porcine 5,000 Unit/Ml Vial) 5,000 unit SUBCUT Q12H [facility] Last Admin: 05/12/24 09:08 Dose: 5,000 unit Documented By: PALLAVI Ceftriaxone Sodium 1 gm/ (Sodium Chloride) 50 mls @ 100 mls/hr IV Q24H [facility] Azithromycin 500 mg/ Sodium (Chloride) 250 mls @ 125 mls/hr IV DAILY [facility] Last Infusion: 05/12/24 11:35 Dose: Infused Documented By: PALLAVI Melatonin (Melatonin 3 Mg Tablet) 6 mg PO BEDTIME PRN PRN Reason: Insomnia Metoprolol Tartrate (Metoprolol Tartrate 25 Mg Tablet) 25 mg PO BID [facility]; Protocol Last Admin: 05/12/24 09:07 Dose: 25 mg Documented By: PALLAVI Ondansetron HCl (Ondansetron Hcl 4 Mg/2 Ml Vial) 4 mg IVPUSH Q4H PRN PRN Reason: Nausea and Vomiting Last Admin: 05/12/24 11:39 Dose: 4 mg Documented By: YOAV Sodium Chloride (0.9 % Sodium Chloride Flush 3 Ml Syringe) 3 ml IVFLUSH QSHIFT [facility] Last Admin: 05/12/24 09:08 Dose: 3 ml Documented By: PALLAVI Vitamin D (Cholecalciferol (Vitamin D3) 25 Mcg Tablet) 50 mcg PO DAILY [facility] Last Admin: 05/12/24 09:08 Dose: 50 mcg Documented By: PALLAVI Labs 05/12/24 05:59 05/12/24 05:59 Labs: Laboratory Results - last 24 hr 05/11/24 05/11/24 05/11/24 15:50 15:55 17:29 MCV 85.9 MCH 28.3 MCHC 32.9 RDW 13.1 Plt Count 337 MPV 9.0 L Immature Gran % (Auto) 1.1 H Neut % (Auto) 75.8 H Lymph % (Auto) 14.8 L [place] % (Auto) 8.0 Eos % (Auto) 0.0 Baso % (Auto) 0.3 Lymph # (Auto) 1.0 L [place] # (Auto) 0.5 Eos # (Auto) 0.0 Baso # (Auto) 0.0 Abs Immat Gran (auto) 0.07 H Absolute Neuts (auto) 4.9 Absolute Nucleated RBC 0.000 Nucleated RBC % (auto) 0.0 Anion Gap 13 Estim Creat Clear Calc 51.7 Estimated GFR > 60 Random Glucose 136 H Calcium 9.6 D Magnesium 2.1 Total Bilirubin 0.5 AST 40 H ALT 35 H Alkaline Phosphatase 221 H Troponin I High Sens < 2.7 Total Protein 7.1 Albumin 3.4 L Urine Color Dark Yellow Urine Appearance Cloudy Urine pH 5.5 Ur Specific [place] 1.020 Urine Protein 30 (1+) H Urine Glucose (UA) Negative Urine Ketones Trace Urine Blood Moderate (2+) H Urine Nitrite Negative Ur Leukocyte Esterase Small (1+) H Urine RBC >20 H Urine WBC 0-5 Ur Squamous Epith Cells 11-20 Urine Bacteria None Seen Hyaline Casts 0-2 Influenza Type A (PCR) NEGATIVE Influenza Type B (PCR) NEGATIVE RSV RNA Qual (PCR) NEGATIVE SARS-CoV-2 RNA (RT-PCR) NEGATIVE 05/12/24 05:59 MCV 86.6 MCH 28.2 MCHC 32.6 RDW 13.2 Plt Count 322 MPV 9.0 L Immature Gran % (Auto) 1.5 H Neut % (Auto) 72.6 Lymph % (Auto) 14.0 L [place] % (Auto) 11.4 H Eos % (Auto) 0.0 Baso % (Auto) 0.5 Lymph # (Auto) 0.8 L [place] # (Auto) 0.7 Eos # (Auto) 0.0 Baso # (Auto) 0.0 Abs Immat Gran (auto) 0.09 H Absolute Neuts (auto) 4.3 Absolute Nucleated RBC 0.000 Nucleated RBC % (auto) 0.0 Anion Gap 15 Estim Creat Clear Calc 49.9 Estimated GFR > 60 Random Glucose 124 H Calcium 9.0 D Magnesium Total Bilirubin 0.4 AST 41 H ALT 38 H Alkaline Phosphatase 203 H Troponin I High Sens Total Protein 6.5 Albumin 3.0 L Urine Color Urine Appearance Urine pH Ur Specific [place] Urine Protein Urine Glucose (UA) Urine Ketones Urine Blood Urine Nitrite Ur Leukocyte Esterase Urine RBC Urine WBC Ur Squamous Epith Cells Urine Bacteria Hyaline Casts Influenza Type A (PCR) Influenza Type B (PCR) RSV RNA Qual (PCR) SARS-CoV-2 RNA (RT-PCR) Microbiology Microbiology Results: Microbiology 05/11/24 Unknown Urine Culture - Preliminary Urine clean catch - Clean Catch Midstream No growth to date. Assessment and Plan (1) Hypoxia: Status: Acute (2) Pneumonitis: Status: Acute Plan 78 y/o woman with PMHx significant for colon cancer on immunotherapy s/p right hemicolectomy with end ileostomy followed by Dr. Reagan admitted with: Hypoxemic respiratory failure secondary to right lower lobe pneumonia in the setting of immunocompromised state/colon cancer on immunotherapy. sob minimum improvement Pulse oximetry. Supplemental O2 to keep O2 sats > 90%. Continue IV antibiotics: Ceftriaxone and azithromycin. Bronchodilator therapy as needed. pulm eval Elevated transaminases and alk-phos: no abd pain , monitor lft's for now. COPD. Not in acute exacerbation. Continue home inhalers. CAD. Continue statin, aspirin and metoprolol. Neuropathy. Continue gabapentin. ongoing hospitlisation need :Hypoxemic respiratory failure secondary to right lower lobe pneumonia in the setting of immunocompromised state/colon cancer on immunotherapy- need IV antibiotic, oxygen need, close monitoring of respiratory status,pulm eval. Quality Stroke Does the patient have a stroke diagnosis?: No VTE Prior VTE?: No VTE Risk Level:: Medical - moderate - high VTE Device Contraindication: Treatment Not Indicated VTE Drug Contraindication: N/A - Med Ordered
[2024-05-12] MEDS: cefTRIAXone sodium 1 GM in 0.9 % Sodium Chloride 50 ML IV (16:39)
[2024-05-12] MEDS: Enoxaparin Sodium 40 MG/0.4 ML SYRINGE SUBCUT (17:03)
[2024-05-12] MEDS: Gabapentin 300 MG CAPSULE PO (19:20)
[2024-05-12 20:52] LABS: Procalcitonin 0.06 ng/mL
[2024-05-13] VITALS (9 sets, daily range): BP systolic 102–123; BP diastolic 56–65; PULSE 62–78; RESP 12–18; TEMP 36.1–36.4; O2SAT 93–98
[2024-05-13] MEDS: Fluticasone/Umeclidinium/Vilanterol 200/62.5/25 BLST.W.DEV 1 PUFF INHALE (07:36)
--- NOTE | 2024-05-13 08:42 | PM.CNPUL ---
History of Present Illness History of Present Illness Consult date: 05/13/24 Chief complaint: Pneumonia Narrative: This is an inpatient pulmonary consultation. The patient is a 78 year old female with history of metastatic colon cancer diagnosed in 11/26/2023. She has been through multiple rounds of chemo/immunotherapy as well as surgical procedures. She was recently started on immunotherapy, she received her 1st cycle 3 weeks ago. She has a past history of pneumonitis secondary to pembrolizumab. She presented to Oncology Clinic with complaints of weakness and hypoxemia. She was noted to have O2 sats of 87% on room air. She did not have any complaints of cough. She was very weak and therefore was not exerting herself. She was exposed to COVID-19 infection but she did test herself at home and it was negative. Her appetite has been poor in the last few days. No diarrhea or abdominal discomfort. No nausea or emesis. The patient is admitted to the hospital initially requiring 5 L of oxygen. She is down to 2 L. She was started on antibiotics for what appeared to be a right lower lobe consolidation. She also had areas of pneumonitis. It is reassuring that her oxygen has been titrated down. She does not have any wheezing on examination no crackles on examination. We did look at her blood work. Her eosinophils are normal. Also check her procalcitonin levels which were within normal limits. We did talk about the possibility of infectious versus noninfectious pneumonia. I am hoping the we can start her on inhaled cortical steroid therapy with the hopes that we can decrease the inflammation from within. Holding on systemic steroids because we do not want to interfere with the affects of the Keytruda right now for her colon cancer. We can also consider bronchoscopy for deep cultures. However, she is already on antibiotics and clinically she is doing a little better so we can hold off at this time. We can also consider that as an outpatient if he persists. Review of Systems Constitutional: Constitutional: Denies fever(s) Eyes: Eyes: Reports no additional eye complaints ENT: Denies nasal congestion Cardiovascular: Cardiovascular: Denies chest pain and Reports dyspnea on exertion Respiratory: Respiratory: Reports cough, Reports dyspnea on exertion and Denies wheezing Gastrointestinal: Gastrointestinal: Reports as per HPI Musculoskeletal: Musculoskeletal: Reports no additional musculoskeletal complaints Integumentary/Breasts: Skin/Breast: Denies rash Neurologic: Reports system reviewed and no additional complaints, except as documented Allergic/Immunologic: Allergic/Immunologic: Denies wheezing PMFSH Past Medical History Medical History (Updated 05/13/24 @ 08:47 by Bharat Dominguez MD) CAD (coronary artery disease) Colon adenocarcinoma Pneumonia COPD (chronic obstructive pulmonary disease) Blood D-dimer assay positive Chronic respiratory failure Pulmonary nodules Family History Family History Sister Dementia Breast cancer Father Emphysema lung Mother Surgical History Surgical History S/P colon resection Social History Social History Household Members: Family Household Members Other:: granddaughter Housing: House Do you presently have visiting nurse or other home services: No Patient Tobacco Use Status: Former Tobacco user Tobacco use type: Cigarette service: No Current occupational status: retired [employer] Allergies Allergy/AdvReac Type Severity Reaction Status Date / Time No Known Allergies Allergy Verified 05/11/24 14:47 Active Medications: Current Medications Acetaminophen (Acetaminophen 325 Mg Tablet) 975 mg PO Q6H PRN PRN Reason: Pain, Mild (Pain Scale 1-3), fever or headache Albuterol/Ipratropium (Albuterol/Iprat 2.5/0.5mg 3 Ml Ampul.Neb) 3 ml INHALE Q4H PRN PRN Reason: Shortness of Breath/Wheezing Aspirin (Aspirin Enteric Coated 81 Mg Tablet.) 81 mg PO DAILY [facility] Last Admin: 05/12/24 09:08 Dose: 81 mg Atorvastatin Calcium (Atorvastatin Calcium 80 Mg Tablet) 80 mg PO DAILY [facility] Last Admin: 05/12/24 09:08 Dose: 80 mg Budesonide (Budesonide 0.5 Mg/2 Ml Ampul.Neb) 1 mg INHALE RBID [facility] Heparin Sodium (Porcine) 500 (unit/ Sodium Chloride 5 ml) 0 unit IVFLUSH ONCE PRN PRN Reason: Infusion Center Last Admin: 05/12/24 13:57 Dose: 5 unit Enoxaparin Sodium (Enoxaparin Sodium 40 Mg/0.4 Ml Syringe) 40 mg SUBCUT Q24H [facility] Last Admin: 05/12/24 17:03 Dose: 40 mg Fluticasone/Umeclidinium/Vilanterol (Fluticasone/Umeclidinium/Vilanterol 200/62.5/25 Blst.W.Dev) 1 puff INHALE RDAILY [facility] Last Admin: 05/13/24 07:36 Dose: 1 puff Gabapentin (Gabapentin 300 Mg Capsule) 300 mg PO BEDTIME [facility] Last Admin: 05/12/24 19:20 Dose: 300 mg Ceftriaxone Sodium 1 gm/ (Sodium Chloride) 50 mls @ 100 mls/hr IV Q24H [facility] Last Infusion: 05/12/24 17:17 Dose: Infused Azithromycin 500 mg/ Sodium (Chloride) 250 mls @ 125 mls/hr IV DAILY [facility] Last Infusion: 05/12/24 11:35 Dose: Infused Melatonin (Melatonin 3 Mg Tablet) 6 mg PO BEDTIME PRN PRN Reason: Insomnia Metoprolol Tartrate (Metoprolol Tartrate 25 Mg Tablet) 25 mg PO BID [facility]; Protocol Last Admin: 05/12/24 20:16 Dose: 25 mg Ondansetron HCl (Ondansetron Hcl 4 Mg/2 Ml Vial) 4 mg IVPUSH Q4H PRN PRN Reason: Nausea and Vomiting Last Admin: 05/12/24 11:39 Dose: 4 mg Sodium Chloride (0.9 % Sodium Chloride Flush 3 Ml Syringe) 3 ml IVFLUSH QSHIFT [facility] Last Admin: 05/12/24 19:20 Dose: 3 ml Vitamin D (Cholecalciferol (Vitamin D3) 25 Mcg Tablet) 50 mcg PO DAILY [facility] Last Admin: 05/12/24 09:08 Dose: 50 mcg Home Medications ?Medication ?Instructions ?Recorded ?Confirmed ?Last Taken ?Type aspirin 81 mg tablet,delayed 81 mg PO DAILY 09/28/22 05/11/24 05/11/24 History release atorvastatin 80 mg tablet 80 mg PO DAILY 09/28/22 05/11/24 05/11/24 History cholecalciferol (vitamin D3) 50 50 mcg PO DAILY 09/28/22 05/11/24 05/11/24 History mcg (2,000 unit) capsule metoprolol tartrate 25 mg tablet 25 mg PO BID 09/28/22 05/11/24 05/11/24 History nebulizers 05/23/23 02/10/24 Unknown History gabapentin 300 mg capsule 300 mg DAILY 05/11/24 05/11/24 05/11/24 History Physical Exam Vital Signs: Vital Signs: Last Vital Signs Temp 97.6 F 05/13/24 07:56 Pulse 76 05/13/24 07:56 Resp 12 05/13/24 07:56 BP 102/61 05/13/24 07:56 Pulse Ox 93 05/13/24 08:12 O2 Del Method Nasal Cannula 05/13/24 08:12 O2 Flow Rate 1 05/13/24 08:12 Oxygen Flow Rate 2 05/11/24 14:43 BMI result Body Mass Index 19.3 Const: General: comfortable HEENT: Head: Yes normocephalic Neck: Neck: Yes supple Chest: Chest palpation & inspection: normal inspection of the chest Resp: Effort & Inspection: normal respiratory effort Auscultation: no rales, no rhonchi, no wheezes and diminished lung sounds Cardio: Heart sounds: S1 normal heart sound present and S2 normal heart sound present GI: Palpation (GI): Soft to palpation Skin: General skin exam: no rashes or lesions noted Extrem: General: Yes no clubbing, cyanosis or edema Results Laboratory Findings 05/12/24 05:59 05/12/24 05:59 Abnormal lab findings: Abnormal Labs 05/11/24 05/11/24 05/12/24 15:50 15:55 05:59 RBC 4.18 L Hgb 11.8 L Hct 36.2 L MPV 9.0 L 9.0 L Immature Gran % (Auto) 1.1 H 1.5 H Neut % (Auto) 75.8 H Lymph % (Auto) 14.8 L 14.0 L [place] % (Auto) 11.4 H Lymph # (Auto) 1.0 L 0.8 L Abs Immat Gran (auto) 0.07 H 0.09 H Carbon Dioxide 30 H 31 H Random Glucose 136 H 124 H AST 40 H 41 H ALT 35 H 38 H Alkaline Phosphatase 221 H 203 H Albumin 3.4 L 3.0 L Urine Protein 30 (1+) H Urine Blood Moderate (2+) H Ur Leukocyte Esterase Small (1+) H Urine RBC >20 H Microbiology: Microbiology 05/11/24 Unknown Urine clean catch - Clean Catch Midstream Urine Culture - Preliminary No growth to date. Assessment and Plan (1) Acute hypoxemic respiratory failure: Status: Acute (2) Pneumonia: Qualifiers: Pneumonia type: due to unspecified organism Laterality: unspecified laterality Lung location: unspecified part of lung Qualified Code(s): J18.9 - Pneumonia, unspecified organism Status: Acute (3) Pneumonitis: Status: Acute (4) COPD (chronic obstructive pulmonary disease): Qualifiers: COPD type: chronic bronchitis Chronic bronchitis type: simple Qualified Code(s): J41.0 - Simple chronic bronchitis Status: Acute Plan Continue oxygen supplementation to keep pulse ox above 90%. Likely will need oxygen upon discharge with activity Continue IV antibiotics for another day them likely switch to oral antibiotics. Holding off on systemic steroids Start inhaled budesonide twice a day Continue Trelegy Requesting additional blood work Will continue to monitor Procedures Date of Service Date of Service: 05/13/24
[2024-05-13] MEDS: Cholecalciferol (Vitamin D3) 25 MCG TABLET 50 MCG PO (08:51)
[2024-05-13] MEDS: Atorvastatin Calcium 80 MG TABLET PO (08:51)
[2024-05-13] MEDS: 0.9 % Sodium Chloride Flush 3 ML SYRINGE IVFLUSH ×3 (08:51→20:11)
[2024-05-13] MEDS: Aspirin Enteric Coated 81 MG TABLET.DR PO (08:51)
[2024-05-13] MEDS: Metoprolol Tartrate 25 MG TABLET PO ×2 (08:51→20:11)
[2024-05-13] MEDS: ondansetron HCL 4 MG/2 ML VIAL IVPUSH (08:51)
[2024-05-13] MEDS: Budesonide 0.5 MG/2 ML AMPUL.NEB 1 MG INHALE ×2 (08:59→19:27)
[2024-05-13] MEDS: Azithromycin 500 MG in 0.9 % Sodium Chloride 250 ML 100 MG IV (09:03)
--- NOTE | 2024-05-13 10:30 | PC.NURSE ---
Patient reported feeling nauseous and intermittently lightheaded upon first assessment at approximately 0715. Patient utilized zofran with good effect and had breakfast without issue. Reported feeling better after breakfast. Patient A&Ox4 and independent with activity. Verbalized she will use call grad[employer] and ask for assistance if feeling lightheaded again.
[2024-05-13 11:04] LABS: Erythrocyte Sedimentation Rate 81 MM/HR (0-20)
--- NOTE | 2024-05-13 12:34 | MHC.CM.PN ---
pt lives with dgraghavendra and anat had no previous servies will have own transport home dc plan home no servis
--- NOTE | 2024-05-13 14:28 | P.PNIM_ITS ---
Subjective Subjective Date of Service: 05/13/24 Interval History: copd excerebation Review of Systems Shortness of breath seems similar Has dry cough Feels somewhat weak Physical Exam 2 Vital Signs: Vital Signs: Last Vital Signs Temp 97.6 F 05/13/24 07:56 Pulse 76 05/13/24 09:01 Resp 12 05/13/24 09:01 BP 102/61 05/13/24 07:56 Pulse Ox 93 05/13/24 08:12 O2 Del Method Nasal Cannula 05/13/24 08:12 O2 Flow Rate 1 05/13/24 08:12 Oxygen Flow Rate 2 05/11/24 14:43 BMI result Body Mass Index 19.3 Appearance: Alert.? Oriented X3.? cvs: rrr, [id number]. res: air entry fair ,diminshed right >left. abd: no rebound or guarding ,nt, bs present. ext pulses present , no cyanosis . neuro: axo3 , nonfocal. Objective Data Active Medications Acetaminophen (Acetaminophen 325 Mg Tablet) 975 mg PO Q6H PRN PRN Reason: Pain, Mild (Pain Scale 1-3), fever or headache Albuterol/Ipratropium (Albuterol/Iprat 2.5/0.5mg 3 Ml Ampul.Neb) 3 ml INHALE Q4H PRN PRN Reason: Shortness of Breath/Wheezing Aspirin (Aspirin Enteric Coated 81 Mg Tablet.) 81 mg PO DAILY [facility] Last Admin: 05/13/24 08:51 Dose: 81 mg Documented By: PALLAVI Atorvastatin Calcium (Atorvastatin Calcium 80 Mg Tablet) 80 mg PO DAILY [facility] Last Admin: 05/13/24 08:51 Dose: 80 mg Documented By: PALLAVI Budesonide (Budesonide 0.5 Mg/2 Ml Ampul.Neb) 1 mg INHALE RBID [facility] Last Admin: 05/13/24 08:59 Dose: 1 mg Documented By: BRYSON Heparin Sodium (Porcine) 500 (unit/ Sodium Chloride 5 ml) 0 unit IVFLUSH ONCE PRN PRN Reason: Infusion Center Last Admin: 05/12/24 13:57 Dose: 5 unit Documented By: PALLAVI Enoxaparin Sodium (Enoxaparin Sodium 40 Mg/0.4 Ml Syringe) 40 mg SUBCUT Q24H [facility] Last Admin: 05/12/24 17:03 Dose: 40 mg Documented By: PALLAVI Fluticasone/Umeclidinium/Vilanterol (Fluticasone/Umeclidinium/Vilanterol 200/62.5/25 Blst.W.Dev) 1 puff INHALE RDAILY [facility] Last Admin: 05/13/24 07:36 Dose: 1 puff Documented By: BRYSON Gabapentin (Gabapentin 300 Mg Capsule) 300 mg PO BEDTIME [facility] Last Admin: 05/12/24 19:20 Dose: 300 mg Documented By: RAJNI Ceftriaxone Sodium 1 gm/ (Sodium Chloride) 50 mls @ 100 mls/hr IV Q24H [facility] Last Infusion: 05/12/24 17:17 Dose: Infused Documented By: PALLAVI Azithromycin 500 mg/ Sodium (Chloride) 250 mls @ 125 mls/hr IV DAILY [facility] Last Infusion: 05/13/24 12:49 Dose: Infused Documented By: PALLAVI Melatonin (Melatonin 3 Mg Tablet) 6 mg PO BEDTIME PRN PRN Reason: Insomnia Metoprolol Tartrate (Metoprolol Tartrate 25 Mg Tablet) 25 mg PO BID [facility]; Protocol Last Admin: 05/13/24 08:51 Dose: 25 mg Documented By: PALLAVI Ondansetron HCl (Ondansetron Hcl 4 Mg/2 Ml Vial) 4 mg IVPUSH Q4H PRN PRN Reason: Nausea and Vomiting Last Admin: 05/13/24 08:51 Dose: 4 mg Documented By: PALLAVI Sodium Chloride (0.9 % Sodium Chloride Flush 3 Ml Syringe) 3 ml IVFLUSH QSHIFT [facility] Last Admin: 05/13/24 08:51 Dose: 3 ml Documented By: PALLAVI Vitamin D (Cholecalciferol (Vitamin D3) 25 Mcg Tablet) 50 mcg PO DAILY [facility] Last Admin: 05/13/24 08:51 Dose: 50 mcg Documented By: PALLAVI Labs 05/12/24 05:59 05/12/24 05:59 Labs: Laboratory Results - last 24 hr 05/12/24 05/13/24 05:59 09:48 ESR 81 H Procalcitonin 0.06 Microbiology Microbiology Results: Microbiology 05/11/24 Unknown Urine Culture - Final Urine clean catch - Clean Catch Midstream Assessment and Plan (1) Hypoxia: Status: Acute (2) Pneumonitis: Status: Acute Plan 78 y/o woman with PMHx significant for colon cancer on immunotherapy s/p right hemicolectomy with end ileostomy followed by Dr. Reagan admitted with: Hypoxemic respiratory failure secondary to right lower lobe pneumonia in the setting of immunocompromised state/colon cancer on immunotherapy. sob minimum improvement Pulse oximetry. Continue IV antibiotics: Ceftriaxone and azithromycin. Bronchodilator therapy as needed. pulm eval -added budesonide ,Supplemental O2 to keep O2 sats > 90%. Elevated transaminases and alk-phos: no abd pain , monitor lft's for now. COPD. Not in acute exacerbation. Continue home inhalers. CAD. Continue statin, aspirin and metoprolol. Neuropathy. Continue gabapentin. ongoing hospitlisation need :Hypoxemic respiratory failure secondary to right lower lobe pneumonia in the setting of immunocompromised state/colon cancer on immunotherapy- need IV antibiotic, oxygen need, close monitoring of respiratory status,pulm eval. Quality Stroke Does the patient have a stroke diagnosis?: No VTE Prior VTE?: No VTE Risk Level:: Medical - moderate - high VTE Device Contraindication: Treatment Not Indicated VTE Drug Contraindication: N/A - Med Ordered
--- NOTE | 2024-05-13 15:04 | P.PNHO-ONC_ITS ---
Medical Summary - Medical Summary Date of Service: 05/13/24 Chief complaint: Weakness Primary Care Provider: Brandon Buenrostro DO, MD Interval History Interval history: Zoya Pena is a 78 year old female with history of metastatic colon cancer diagnosed in 11/26/2023. She has been through multiple rounds of chemo/immunotherapy as well as surgical procedures. She was recently started on immunotherapy, she received her 1st cycle 3 weeks ago. She has a past history of pneumonitis secondary to pembrolizumab. She presented to Oncology Clinic with complaints of weakness and hypoxemia. She was noted to have O2 sats of 87% on room air. She did not have any complaints of cough. She was very weak and therefore was not exerting herself. She was exposed to COVID-19 infection but she did test herself at home and it was negative. Her appetite has been poor in the last few days. No diarrhea or abdominal discomfort. No nausea or emesis. She is feeling slightly stronger. No significant cough or shortness of breath. She has not been moving around much. Review of Systems - Neurologic Reports no additional neurologic complaints PMFSH Medical History: Medical History (Last Reviewed 02/10/24 @ 11:25 by Lebron Chan) Blood D-dimer assay positive CAD (coronary artery disease) Chronic respiratory failure Colon adenocarcinoma COPD (chronic obstructive pulmonary disease) Pneumonia Pulmonary nodules Family History: Family History (Last Reviewed 02/10/24 @ 11:25 by Lebron Chan) Sister Dementia Breast cancer Father Emphysema lung Mother Surgical History: Surgical History (Last Reviewed 02/10/24 @ 11:25 by Lebron Chan) S/P colon resection Social History: Social History (Last Reviewed 02/10/24 @ 11:25 by Lebron Chan) Living Situation History: Household Members: Family Household Members Other:: granddaughter Housing: House Do you presently have visiting nurse or other home services: No Tobacco History: Patient Tobacco Use Status: Former Tobacco user Tobacco use type: Cigarette Occupation Assessmet: service: No Current occupational status: retired Home Medications and Allergies Current Medications: Current Medications Acetaminophen (Acetaminophen 325 Mg Tablet) 975 mg PO Q6H PRN PRN Reason: Pain, Mild (Pain Scale 1-3), fever or headache Albuterol/Ipratropium (Albuterol/Iprat 2.5/0.5mg 3 Ml Ampul.Neb) 3 ml INHALE Q4H PRN PRN Reason: Shortness of Breath/Wheezing Aspirin (Aspirin Enteric Coated 81 Mg Tablet.Dr) 81 mg PO DAILY [facility] Last Admin: 05/13/24 08:51 Dose: 81 mg Atorvastatin Calcium (Atorvastatin Calcium 80 Mg Tablet) 80 mg PO DAILY [facility] Last Admin: 05/13/24 08:51 Dose: 80 mg Budesonide (Budesonide 0.5 Mg/2 Ml Ampul.Neb) 1 mg INHALE RBID [facility] Last Admin: 05/13/24 08:59 Dose: 1 mg Heparin Sodium (Porcine) 500 (unit/ Sodium Chloride 5 ml) 0 unit IVFLUSH ONCE PRN PRN Reason: Infusion Center Last Admin: 05/12/24 13:57 Dose: 5 unit Enoxaparin Sodium (Enoxaparin Sodium 40 Mg/0.4 Ml Syringe) 40 mg SUBCUT Q24H [facility] Last Admin: 05/12/24 17:03 Dose: 40 mg Fluticasone/Umeclidinium/Vilanterol (Fluticasone/Umeclidinium/Vilanterol 200/62.5/25 Blst.W.Dev) 1 puff INHALE RDAILY [facility] Last Admin: 05/13/24 07:36 Dose: 1 puff Gabapentin (Gabapentin 300 Mg Capsule) 300 mg PO BEDTIME [facility] Last Admin: 05/12/24 19:20 Dose: 300 mg Ceftriaxone Sodium 1 gm/ (Sodium Chloride) 50 mls @ 100 mls/hr IV Q24H [facility] Last Infusion: 05/12/24 17:17 Dose: Infused Azithromycin 500 mg/ Sodium (Chloride) 250 mls @ 125 mls/hr IV DAILY [facility] Last Infusion: 05/13/24 12:49 Dose: Infused Melatonin (Melatonin 3 Mg Tablet) 6 mg PO BEDTIME PRN PRN Reason: Insomnia Metoprolol Tartrate (Metoprolol Tartrate 25 Mg Tablet) 25 mg PO BID [facility]; Protocol Last Admin: 05/13/24 08:51 Dose: 25 mg Ondansetron HCl (Ondansetron Hcl 4 Mg/2 Ml Vial) 4 mg IVPUSH Q4H PRN PRN Reason: Nausea and Vomiting Last Admin: 05/13/24 08:51 Dose: 4 mg Sodium Chloride (0.9 % Sodium Chloride Flush 3 Ml Syringe) 3 ml IVFLUSH QSHIFT [facility] Last Admin: 05/13/24 08:51 Dose: 3 ml Vitamin D (Cholecalciferol (Vitamin D3) 25 Mcg Tablet) 50 mcg PO DAILY [facility] Last Admin: 05/13/24 08:51 Dose: 50 mcg Home Medications ?Medication ?Instructions ?Recorded ?Confirmed ?Type aspirin 81 mg tablet,delayed 81 mg PO DAILY 09/28/22 05/11/24 History release atorvastatin 80 mg tablet 80 mg PO DAILY 09/28/22 05/11/24 History cholecalciferol (vitamin D3) 50 50 mcg PO DAILY 09/28/22 05/11/24 History mcg (2,000 unit) capsule metoprolol tartrate 25 mg tablet 25 mg PO BID 09/28/22 05/11/24 History nebulizers 05/23/23 02/10/24 History gabapentin 300 mg capsule 300 mg DAILY 05/11/24 05/11/24 History Allergies Allergy/AdvReac Type Severity Reaction Status Date / Time No Known Allergies Allergy Verified 05/11/24 14:47 Exam Vital signs: Vital Signs Temp 97.6 F 05/13/24 07:56 Pulse 76 05/13/24 09:01 Resp 12 05/13/24 09:01 BP 102/61 05/13/24 07:56 Pulse Ox 93 05/13/24 08:12 O2 Del Method Nasal Cannula 05/13/24 08:12 O2 Flow Rate 1 05/13/24 08:12 Intake & Output 05/12/24 05/13/24 05/13/24 18:59 06:59 18:59 Intake Total 600 / 720 120 / 720 250 / 250 Balance 600 / 720 120 / 720 250 / 250 Intake: Intake, Oral Amount 300 / 420 120 / 420 Intake, IV Amount 300 / 300 250 / 250 Azithromycin 500 mg In 0.9 % 250 / 250 250 / 250 Sodium Chloride 250 ml @ 125 mls/hr IV DAILY [facility] Rx#: [id number] cefTRIAXone sodium 1 gm In 0.9 50 / 50 % Sodium Chloride 50 ml @ 100 mls/hr IV Q24H [facility] Rx#: [id number] Other: Breakfast % Eaten 25% Lunch % Eaten 25% Eating (Feeding) Ability Independent Number of Unmeasured Voids 3 1 Number of Bowel Movements 2 Urine Bathroom Bathroom Urine Color Yellow Last Bowel Movement 05/13/24 05/12/24 Stool Bathroom Bathroom Stool Amount Small Stool Consistency Loose Weight 51 kg BMI result Body Mass Index 19.3 - Constitutional Present: no acute distress - Routine Respiratory Exam Present: CTAB, rhonchi. Absent: accessory muscle use - Routine Cardiovascular Exam Cardiovascular: Present: S1, S2 - Routine Abdominal Exam Present: soft Data - Labs CBC & Chem 7: 05/12/24 05:59 05/12/24 05:59 Labs: Laboratory Last Values WBC 5.9 X10*3/uL (4.8-10.8) 05/12/24 05:59 RBC 4.18 X10*6/uL (4.20-5.50) L 05/12/24 05:59 Hgb 11.8 g/dl (12.0-16.0) L 05/12/24 05:59 Hct 36.2 % (37.0-47.0) L 05/12/24 05:59 MCV 86.6 fL (80.0-98.0) 05/12/24 05:59 MCH 28.2 pg (27.0-33.0) 05/12/24 05:59 MCHC 32.6 g/dl (31.0-35.0) 05/12/24 05:59 RDW 13.2 % (11.0-16.0) 05/12/24 05:59 Plt Count 322 X10*3/uL (160-400) 05/12/24 05:59 MPV 9.0 fL (9.4-12.3) L 05/12/24 05:59 Immature Gran % (Auto) 1.5 % (0.0-0.4) H 05/12/24 05:59 Neut % (Auto) 72.6 % (45-73) 05/12/24 05:59 Lymph % (Auto) 14.0 % (20-40) L 05/12/24 05:59 [place] % (Auto) 11.4 % (2-11) H 05/12/24 05:59 Eos % (Auto) 0.0 % (0-4) 05/12/24 05:59 Baso % (Auto) 0.5 % (0-2) 05/12/24 05:59 Lymph # (Auto) 0.8 X10*3/uL (1.2-4.9) L 05/12/24 05:59 [place] # (Auto) 0.7 X10*3/uL (0.1-1.2) 05/12/24 05:59 Eos # (Auto) 0.0 X10*3/uL (0.0-0.4) 05/12/24 05:59 Baso # (Auto) 0.0 X10*3/uL (0.0-0.2) 05/12/24 05:59 Abs Immat Gran (auto) 0.09 X10*3/uL (0.00-0.03) H 05/12/24 05:59 Absolute Neuts (auto) 4.3 x10*3/uL (2.0-8.3) 05/12/24 05:59 Absolute Nucleated RBC 0.000 X10*3/uL (0.0-0.012) 05/12/24 05:59 Nucleated RBC % (auto) 0.0 /100WBC (0.0-0.2) 05/12/24 05:59 ESR 81 MM/HR (0-20) H 05/13/24 09:48 Sodium 142 mmol/L (135-145) 05/12/24 05:59 Potassium 3.8 mmol/L (3.3-5.1) 05/12/24 05:59 Chloride 100 mmol/L (96-108) 05/12/24 05:59 Carbon Dioxide 31 mmol/L (22-29) H 05/12/24 05:59 Anion Gap 15 (12-20) 05/12/24 05:59 BUN 10 mg/dL (9-16) 05/12/24 05:59 Creatinine 0.76 mg/dL (0.5-1.4) 05/12/24 05:59 Estim Creat Clear Calc 49.9 05/12/24 05:59 Estimated GFR > 60 05/12/24 05:59 Random Glucose 124 mg/dL (60-115) H 05/12/24 05:59 Calcium 9.0 mg/dL (8.4-10.2) D 05/12/24 05:59 Magnesium 2.1 mg/dL (1.6-2.6) 05/11/24 15:55 Total Bilirubin 0.4 mg/dL (0.0-1.0) 05/12/24 05:59 AST 41 U/L (5-31) H 05/12/24 05:59 ALT 38 U/L (0-31) H 05/12/24 05:59 Alkaline Phosphatase 203 U/L (39-117) H 05/12/24 05:59 Troponin I High Sens < 2.7 ng/L (<3.5-17.0) 05/11/24 15:55 Total Protein 6.5 g/dL (6.5-8.0) 05/12/24 05:59 Albumin 3.0 g/dL (3.5-5.0) L 05/12/24 05:59 Procalcitonin 0.06 ng/mL 05/12/24 05:59 Urine Color Dark Yellow 05/11/24 15:50 Urine Appearance Cloudy 05/11/24 15:50 Urine pH 5.5 (5.0-9.0) 05/11/24 15:50 Ur Specific [place] 1.020 (1.005-1.025) 05/11/24 15:50 Urine Protein 30 (1+) mg/dL (Neg-Trace) H 05/11/24 15:50 Urine Glucose (UA) Negative mg/dL (Negative) 05/11/24 15:50 Urine Ketones Trace mg/dL (Negative) 05/11/24 15:50 Urine Blood Moderate (2+) (Negative) H 05/11/24 15:50 Urine Nitrite Negative (Negative) 05/11/24 15:50 Ur Leukocyte Esterase Small (1+) (Negative) H 05/11/24 15:50 Urine RBC >20 /HPF (0-2) H 05/11/24 15:50 Urine WBC 0-5 /HPF (0-5) 05/11/24 15:50 Ur Squamous Epith Cells 11-20 /HPF (0-2) 05/11/24 15:50 Urine Bacteria None Seen (None Seen) 05/11/24 15:50 Hyaline Casts 0-2 /LPF (0-2) 05/11/24 15:50 Influenza Type A (PCR) NEGATIVE (Negative) 05/11/24 17:29 Influenza Type B (PCR) NEGATIVE (Negative) 05/11/24 17:29 RSV RNA Qual (PCR) NEGATIVE (Negative) 05/11/24 17:29 SARS-CoV-2 RNA (RT-PCR) NEGATIVE (Negative) 05/11/24 17:29 - Imaging Radiologist's impression: ITS Impressions Chest X-Ray 05/11/24 15:06 IMPRESSION: 1. New right upper lobe consolidation. 2. Resolution of right lower lobe consolidation. Chest CTA 05/11/24 18:32 IMPRESSION: 1. No evidence for pulmonary emboli. 2. Dense consolidation in the right lower lobe suggesting infectious etiology. 3. VTE: Negative. Assessment and Plan Patient Active problem list reviewed?: Yes (1) Colon cancer Status: Chronic Assessment and plan: 1. This is a pleasant 78-year-old woman with metastatic adenocarcinoma of ascending colon presenting with bowel perforation in November 2022. She underwent emergent surgical resection with Dr. Sanchez, final pathological [id number] N2b, stage IIIC. She completed 2 cycles of FOLFOX regimen until 02/13/2023. Because of poor tolerance, she started pembrolizumab on 03/18/2023. She developed pneumonitis after 1st cycle and was hospitalized for a few days. She was treated with high-dose steroids. She underwent reversal of colostomy on 08/26/2023. Pathology report from 09/03/2023-peritoneal nodule excision-fat necrosis, no evidence of malignancy. Ileocolonic anastomosis with end ileostomy reversal: Segment of loop, unremarkable. She completed radiation therapy to tumor outside her right kidney at [facility] on December 19. PET scan performed at [facility] on 02/25/2024 metastasis. She was recommended encorafenib with cetuximab, she was prescribed this in June last year but patient did not take it as she underwent reversal of colostomy and subsequent radiation therapy to lymph node in the abdomen. She received 1st dose of pembrolizumab 3 weeks ago. She is now admitted with hypoxemia and weakness. CT of chest shows no pulmonary emboli, dense consolidation in the right lower lobe. Has been started on ceftriaxone and azithromycin. She has been started on inhaled steroids for now. She is feeling slightly better. - Time Spent With Patient Time Spent with Patient (in minutes): 10
[2024-05-13] MEDS: Enoxaparin Sodium 40 MG/0.4 ML SYRINGE SUBCUT (16:03)
[2024-05-13] MEDS: cefTRIAXone sodium 1 GM in 0.9 % Sodium Chloride 50 ML IV (16:03)
[2024-05-13] MEDS: Gabapentin 300 MG CAPSULE PO (18:25)
[2024-05-14] VITALS (7 sets, daily range): BP systolic 102–116; BP diastolic 60–64; PULSE 76–87; RESP 14–20; TEMP 36.5–36.7; O2SAT 91–94
[2024-05-14] MEDS: Fluticasone/Umeclidinium/Vilanterol 200/62.5/25 BLST.W.DEV 1 PUFF INHALE (07:45)
[2024-05-14] MEDS: Budesonide 0.5 MG/2 ML AMPUL.NEB 1 MG INHALE ×2 (07:45→20:13)
[2024-05-14] MEDS: methylPREDNISolone Sod Succ 40 MG/ML VIAL 80 MG IVPUSH (09:23)
[2024-05-14] MEDS: 0.9 % Sodium Chloride Flush 3 ML SYRINGE IVFLUSH ×3 (09:24→20:51)
[2024-05-14] MEDS: cefuroxime axetiL 500 MG TABLET PO ×2 (09:24→20:50)
[2024-05-14] MEDS: Cholecalciferol (Vitamin D3) 25 MCG TABLET 50 MCG PO (09:25)
[2024-05-14] MEDS: Aspirin Enteric Coated 81 MG TABLET.DR PO (09:25)
[2024-05-14] MEDS: Metoprolol Tartrate 25 MG TABLET PO ×2 (09:25→20:49)
[2024-05-14] MEDS: Atorvastatin Calcium 80 MG TABLET PO (09:25)
--- NOTE | 2024-05-14 12:45 | P.PNPL_ITS ---
Subjective Subjective Date of Service: 05/14/24 Interval history: The patient was seen on exam. She still feels about the same. We did start the inhaled nebulized therapy. Would take longer than a day to really see the effects. She did have a long discussion with the Hematology oncologist. 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 She had a bad reaction in the past. She was feel better. Therefore we decided to give her a dose of Solu- Medrol and see we can facilitate the recovery. Will reassess tomorrow to see if she needs to be on prednisone. She will continue with the inhaled nebulized therapy. She will discontinue the Keytruda at this time and will consider alternative therapies due to her adverse effects to the immune therapies. Additional blood work has been requested as well. Objective Data Labs 05/12/24 05:59 05/12/24 05:59 Microbiology Microbiology Results: Microbiology 05/11/24 Unknown Urine clean catch - Clean Catch Midstream Urine Culture - Final Review of Systems Constitutional: Denies fever(s) Eyes: Reports no additional eye complaints Denies nasal congestion Cardiovascular: Denies chest pain and Reports dyspnea on exertion Respiratory: Reports cough, Reports dyspnea on exertion and Denies wheezing Gastrointestinal: Reports as per HPI Musculoskeletal: Reports no additional musculoskeletal complaints Skin/Breast: Denies rash Reports system reviewed and no additional complaints, except as documented Allergic/Immunologic: Denies wheezing Physical Exam 2 Vital Signs: Vital Signs: Last Vital Signs Temp 97.7 F 05/14/24 07:29 Pulse 87 05/14/24 09:25 Resp 14 05/14/24 07:49 BP 102/60 05/14/24 09:25 Pulse Ox 93 05/14/24 07:29 O2 Del Method Nasal Cannula 05/14/24 07:29 O2 Flow Rate 1 05/14/24 07:29 Oxygen Flow Rate 2 05/11/24 14:43 BMI result Body Mass Index 19.3 Const: General: comfortable HEENT: Head: Yes normocephalic Neck: Neck: Yes supple Chest: Chest palpation & inspection: normal inspection of the chest Resp: Effort & Inspection: normal respiratory effort Auscultation: c rackles, no rhonchi, no wheezes and diminished lung sounds Cardio: Heart sounds: S1 normal heart sound present and S2 normal heart sound present GI: Palpation (GI): Soft to palpation Skin: General skin exam: no rashes or lesions noted Extrem: General: Yes no clubbing, cyanosis or edema Procedures Date of Service Date of Service: 05/14/24 Assessment and Plan Assessment and plan (1) Acute hypoxemic respiratory failure: Status: Acute (2) Pneumonitis: Problem details: better Status: Acute (3) Pneumonia: Problem details: ?infectious versus non infectious. Very suspicious for cryptogenic organising pneumonia or AFOB. +JAXON although low titers, ESR was significantly elevated. Status: Acute (4) COPD (chronic obstructive pulmonary disease): Problem details: severe based on PFTs Status: Acute Plan solumedrol IV x 1 continue respiratory therapy consider prednisone tomorrow titrate oxygen to keep poc>90% PO abx at this time repeat CXR tomorrow Time Spent With Patient Time: Total time managing care of this patient today ____ minutes. Progress Note: Quality Stroke Does the patient have a stroke diagnosis?: No
--- NOTE | 2024-05-14 14:49 | HO.PM.IMPN ---
Subjective Subjective Date of Service: 05/14/24 Interval History: copd excerebation Review of Systems sob seems somewhat improving but get sob with minimum excersion. generalised weakness also improving Physical Exam Vital Signs: Vital Signs: Last Vital Signs Temp 97.7 F 05/14/24 07:29 Pulse 87 05/14/24 09:25 Resp 14 05/14/24 07:49 BP 102/60 05/14/24 09:25 Pulse Ox 93 05/14/24 07:29 O2 Del Method Nasal Cannula 05/14/24 07:29 O2 Flow Rate 1 05/14/24 07:29 Oxygen Flow Rate 2 05/11/24 14:43 BMI result Body Mass Index 19.3 Appearance: Alert.? Oriented X3.? cvs: rrr, [id number]. res: air entry fair ,diminshed right >left. abd: no rebound or guarding ,nt, bs present. ext pulses present , no cyanosis . neuro: axo3 , nonfocal. Objective Data Active Medications Acetaminophen (Acetaminophen 325 Mg Tablet) 975 mg PO Q6H PRN PRN Reason: Pain, Mild (Pain Scale 1-3), fever or headache Albuterol/Ipratropium (Albuterol/Iprat 2.5/0.5mg 3 Ml Ampul.Neb) 3 ml INHALE Q4H PRN PRN Reason: Shortness of Breath/Wheezing Aspirin (Aspirin Enteric Coated 81 Mg Tablet.) 81 mg PO DAILY [facility] Last Admin: 05/14/24 09:25 Dose: 81 mg Documented By: SARAH Atorvastatin Calcium (Atorvastatin Calcium 80 Mg Tablet) 80 mg PO DAILY [facility] Last Admin: 05/14/24 09:25 Dose: 80 mg Documented By: SARAH Azithromycin (Azithromycin 500 Mg Tablet) 500 mg PO DAILY [facility] Budesonide (Budesonide 0.5 Mg/2 Ml Ampul.Neb) 1 mg INHALE RBID [facility] Last Admin: 05/14/24 07:45 Dose: 1 mg Documented By: ENZO Cefuroxime Axetil (Cefuroxime Axetil 500 Mg Tablet) 500 mg PO BID [facility] Last Admin: 05/14/24 09:24 Dose: 500 mg Documented By: SARAH Heparin Sodium (Porcine) 500 (unit/ Sodium Chloride 5 ml) 0 unit IVFLUSH ONCE PRN PRN Reason: Infusion Center Last Admin: 05/12/24 13:57 Dose: 5 unit Documented By: PALLAVI Enoxaparin Sodium (Enoxaparin Sodium 40 Mg/0.4 Ml Syringe) 40 mg SUBCUT Q24H [facility] Last Admin: 05/13/24 16:03 Dose: 40 mg Documented By: PALLAVI Fluticasone/Umeclidinium/Vilanterol (Fluticasone/Umeclidinium/Vilanterol 200/62.5/25 Blst.W.Dev) 1 puff INHALE RDAILY [facility] Last Admin: 05/14/24 07:45 Dose: 1 puff Documented By: ENZO Gabapentin (Gabapentin 300 Mg Capsule) 300 mg PO BEDTIME [facility] Last Admin: 05/13/24 18:25 Dose: 300 mg Documented By: PALLAVI Comments: Administered early per patient request. Dr. Troy Chaparro. Melatonin (Melatonin 3 Mg Tablet) 6 mg PO BEDTIME PRN PRN Reason: Insomnia Metoprolol Tartrate (Metoprolol Tartrate 25 Mg Tablet) 25 mg PO BID [facility]; Protocol Last Admin: 05/14/24 09:25 Dose: 25 mg Documented By: SARAH Ondansetron HCl (Ondansetron Hcl 4 Mg/2 Ml Vial) 4 mg IVPUSH Q4H PRN PRN Reason: Nausea and Vomiting Last Admin: 05/13/24 08:51 Dose: 4 mg Documented By: PALLAVI Sodium Chloride (0.9 % Sodium Chloride Flush 3 Ml Syringe) 3 ml IVFLUSH QSHIFT [facility] Last Admin: 05/14/24 09:24 Dose: 3 ml Documented By: SARAH Vitamin D (Cholecalciferol (Vitamin D3) 25 Mcg Tablet) 50 mcg PO DAILY [facility] Last Admin: 05/14/24 09:25 Dose: 50 mcg Documented By: SARAH Labs 05/12/24 05:59 05/12/24 05:59 Assessment and Plan (1) Hypoxia: Status: Acute (2) Pneumonitis: Status: Acute Plan 78 y/o woman with PMHx significant for colon cancer on immunotherapy s/p right hemicolectomy with end ileostomy followed by Dr. Dulala admitted with: Hypoxemic respiratory failure secondary to right lower lobe pneumonia in the setting of immunocompromised state/colon cancer on immunotherapy. sob minimum improvement Pulse oximetry. Continue IV antibiotics: Ceftriaxone and azithromycin. Bronchodilator therapy as needed. pulm eval - added iv steriods( possible pneumonitis component) ,conitnue budesonide ,Supplemental O2 to keep O2 sats > 90%. Elevated transaminases and alk-phos: no abd pain , monitor lft's for now. COPD. Not in acute exacerbation. Continue home inhalers. CAD. Continue statin, aspirin and metoprolol. Neuropathy. Continue gabapentin. ongoing hospitlisation need :Hypoxemic respiratory failure secondary to right lower lobe pneumonia in the setting of immunocompromised state/colon cancer on immunotherapy- need IV antibiotic, oxygen need, close monitoring of respiratory status,pulm eval. Quality Stroke Does the patient have a stroke diagnosis?: No VTE Prior VTE?: No VTE Risk Level:: Medical - moderate - high VTE Device Contraindication: Treatment Not Indicated VTE Drug Contraindication: N/A - Med Ordered
[2024-05-14 15:59] LABS: Immunoglobulin G Subclass 1 446 mg/dL (382-929); Immunoglobulin G Subclass 2 399 mg/dL (241-700); Immunoglobulin G Subclass 3 96 mg/dL (22-178); Immunoglobulin G Subclass 4 64.2 mg/dL (4-86); Immunoglobulin G Total 1116 mg/dL (600-1540)
[2024-05-14] MEDS: Enoxaparin Sodium 40 MG/0.4 ML SYRINGE SUBCUT (17:43)
[2024-05-14] MEDS: Gabapentin 300 MG CAPSULE PO (19:19)
[2024-05-14 22:18] LABS: Immunoglobulin E 21 kU/L (<OR=114)
[2024-05-15] VITALS (8 sets, daily range): BP systolic 109–124; BP diastolic 63–72; PULSE 62–78; RESP 14–18; TEMP 36.1–36.3; O2SAT 93–95
[2024-05-15] MEDS: Fluticasone/Umeclidinium/Vilanterol 200/62.5/25 BLST.W.DEV 1 PUFF INHALE (08:01)
[2024-05-15] MEDS: Budesonide 0.5 MG/2 ML AMPUL.NEB 1 MG INHALE (08:01)
[2024-05-15] MEDS: 0.9 % Sodium Chloride Flush 3 ML SYRINGE IVFLUSH ×3 (08:51→20:10)
[2024-05-15] MEDS: cefuroxime axetiL 500 MG TABLET PO ×2 (08:52→20:10)
[2024-05-15] MEDS: Cholecalciferol (Vitamin D3) 25 MCG TABLET 50 MCG PO (08:52)
[2024-05-15] MEDS: Aspirin Enteric Coated 81 MG TABLET.DR PO (08:52)
[2024-05-15] MEDS: Azithromycin 500 MG TABLET PO (08:52)
[2024-05-15] MEDS: Metoprolol Tartrate 25 MG TABLET PO ×2 (08:52→20:10)
[2024-05-15] MEDS: Atorvastatin Calcium 80 MG TABLET PO (08:52)
--- NOTE | 2024-05-15 08:59 | P.PNPL_ITS ---
Subjective Subjective Date of Service: 05/15/24 Interval history: The patient was seen on exam. She received 1 dose of Solu-Medrol 80 mg. She is already feeling better. She is still on the oxygen though. She is tapering down. I am hopeful that she can get off the oxygen today. Will place there on a Solu-Medrol dose 40 mg IV Q 8. Hopeful that she can then switch over to p.o. prednisone tomorrow and go home. She should go home on room air. Her respiratory exam is already getting better. Objective Data Labs 05/12/24 05:59 05/12/24 05:59 Labs: Laboratory Results - last 24 hr 05/13/24 09:48 IgG Total 1116 IgG Subclass 1 446 IgG Subclass 2 399 IgG Subclass 3 96 IgG Subclass 4 64.2 IgE 21 Microbiology Microbiology Results: Microbiology 05/11/24 Unknown Urine clean catch - Clean Catch Midstream Urine Culture - Final Review of Systems Constitutional: Denies fever(s) Eyes: Reports no additional eye complaints Denies nasal congestion Cardiovascular: Denies chest pain and Reports dyspnea on exertion Respiratory: Reports cough, Reports dyspnea on exertion and Denies wheezing Gastrointestinal: Reports as per HPI Musculoskeletal: Reports no additional musculoskeletal complaints Skin/Breast: Denies rash Reports system reviewed and no additional complaints, except as documented Allergic/Immunologic: Denies wheezing Physical Exam 2 Vital Signs: Vital Signs: Last Vital Signs Temp 97 F 05/15/24 07:52 Pulse 69 05/15/24 08:52 Resp 18 05/15/24 08:03 BP 119/72 05/15/24 08:52 Pulse Ox 93 05/15/24 07:52 O2 Del Method Nasal Cannula 05/15/24 07:52 O2 Flow Rate 1 05/15/24 07:52 Oxygen Flow Rate 2 05/11/24 14:43 BMI result Body Mass Index 19.3 Const: General: comfortable HEENT: Head: Yes normocephalic Neck: Neck: Yes supple Chest: Chest palpation & inspection: normal inspection of the chest Resp: Effort & Inspection: normal respiratory effort Auscultation: clear to auscultation bilaterally, no crackles, no rhonchi and no wheezes Cardio: Heart sounds: S1 normal heart sound present and S2 normal heart sound present GI: Palpation (GI): Soft to palpation Skin: General skin exam: no rashes or lesions noted Extrem: General: Yes no clubbing, cyanosis or edema Procedures Date of Service Date of Service: 05/15/24 Assessment and Plan Assessment and plan (1) Acute hypoxemic respiratory failure: Status: Acute (2) Pneumonitis: Problem details: better Status: Acute (3) Pneumonia: Problem details: ?infectious versus non infectious. Very suspicious for cryptogenic organising pneumonia or AFOB. +JAXON although low titers, ESR was significantly elevated. Status: Acute (4) COPD (chronic obstructive pulmonary disease): Problem details: severe based on PFTs Status: Acute Plan solumedrol 40mg IV q8->prednisone tomorrow 40mg daily with taper by 10mg every 3 days stop budesonide titrate oxygen to keep poc>90% PO abx at this time Dispo: home tomorrow if off O2 on PO prednisone and abx and pulmonary f/u Time Spent With Patient Time: Total time managing care of this patient today ____ minutes. Progress Note: Quality Stroke Does the patient have a stroke diagnosis?: No
[2024-05-15] MEDS: methylPREDNISolone Sod Succ 40 MG/ML VIAL IVPUSH ×2 (09:09→16:37)
--- NOTE | 2024-05-15 13:30 | P.PNIM_ITS ---
Subjective Subjective Date of Service: 05/15/24 Interval History: copd excerebation Review of Systems sob seems somewhat improving but get sob generalised weakness also improving Physical Exam 2 Vital Signs: Vital Signs: Last Vital Signs Temp 97 F 05/15/24 07:52 Pulse 69 05/15/24 08:52 Resp 18 05/15/24 08:03 BP 119/72 05/15/24 08:52 Pulse Ox 95 05/15/24 09:39 O2 Del Method Room Air 05/15/24 09:13 O2 Flow Rate 1 05/15/24 07:52 Oxygen Flow Rate 2 05/11/24 14:43 BMI result Body Mass Index 19.3 Appearance: Alert.? Oriented X3.? cvs: rrr, [id number]. res: air entry fair ,diminshed right >left. abd: no rebound or guarding ,nt, bs present. ext pulses present , no cyanosis . neuro: axo3 , nonfocal. Objective Data Active Medications Acetaminophen (Acetaminophen 325 Mg Tablet) 975 mg PO Q6H PRN PRN Reason: Pain, Mild (Pain Scale 1-3), fever or headache Albuterol/Ipratropium (Albuterol/Iprat 2.5/0.5mg 3 Ml Ampul.Neb) 3 ml INHALE Q4H PRN PRN Reason: Shortness of Breath/Wheezing Aspirin (Aspirin Enteric Coated 81 Mg Tablet.) 81 mg PO DAILY [facility] Last Admin: 05/15/24 08:52 Dose: 81 mg Documented By: SAARH Atorvastatin Calcium (Atorvastatin Calcium 80 Mg Tablet) 80 mg PO DAILY [facility] Last Admin: 05/15/24 08:52 Dose: 80 mg Documented By: SARAH Azithromycin (Azithromycin 500 Mg Tablet) 500 mg PO DAILY [facility] Last Admin: 05/15/24 08:52 Dose: 500 mg Documented By: SARAH Cefuroxime Axetil (Cefuroxime Axetil 500 Mg Tablet) 500 mg PO BID [facility] Last Admin: 05/15/24 08:52 Dose: 500 mg Documented By: SARAH Heparin Sodium (Porcine) 500 (unit/ Sodium Chloride 5 ml) 0 unit IVFLUSH ONCE PRN PRN Reason: Infusion Center Last Admin: 05/12/24 13:57 Dose: 5 unit Documented By: PALLAVI Enoxaparin Sodium (Enoxaparin Sodium 40 Mg/0.4 Ml Syringe) 40 mg SUBCUT Q24H [facility] Last Admin: 05/14/24 17:43 Dose: 40 mg Documented By: SARAH Fluticasone/Umeclidinium/Vilanterol (Fluticasone/Umeclidinium/Vilanterol 200/62.5/25 Blst.W.Dev) 1 puff INHALE RDAILY [facility] Last Admin: 05/15/24 08:01 Dose: 1 puff Documented By: JEFFERY Gabapentin (Gabapentin 300 Mg Capsule) 300 mg PO BEDTIME [facility] Last Admin: 05/14/24 19:19 Dose: 300 mg Documented By: ISABELLE Melatonin (Melatonin 3 Mg Tablet) 6 mg PO BEDTIME PRN PRN Reason: Insomnia Methylprednisolone Sodium Succinate (Methylprednisolone Sod Succ 40 Mg/Ml Vial) 40 mg IVPUSH Q8H [facility] Last Admin: 05/15/24 09:09 Dose: 40 mg Documented By: SARAH Metoprolol Tartrate (Metoprolol Tartrate 25 Mg Tablet) 25 mg PO BID [facility]; Protocol Last Admin: 05/15/24 08:52 Dose: 25 mg Documented By: SARAH Ondansetron HCl (Ondansetron Hcl 4 Mg/2 Ml Vial) 4 mg IVPUSH Q4H PRN PRN Reason: Nausea and Vomiting Last Admin: 05/13/24 08:51 Dose: 4 mg Documented By: PALLAVI Sodium Chloride (0.9 % Sodium Chloride Flush 3 Ml Syringe) 3 ml IVFLUSH QSHIFT [facility] Last Admin: 05/15/24 08:51 Dose: 3 ml Documented By: SARAH Vitamin D (Cholecalciferol (Vitamin D3) 25 Mcg Tablet) 50 mcg PO DAILY [facility] Last Admin: 05/15/24 08:52 Dose: 50 mcg Documented By: SARAH Labs 05/12/24 05:59 05/12/24 05:59 Labs: Laboratory Results - last 24 hr 05/13/24 09:48 IgG Total 1116 IgG Subclass 1 446 IgG Subclass 2 399 IgG Subclass 3 96 IgG Subclass 4 64.2 IgE 21 Assessment and Plan (1) Hypoxia: Status: Acute (2) Pneumonitis: Status: Acute Plan 78 y/o woman with PMHx significant for colon cancer on immunotherapy s/p right hemicolectomy with end ileostomy followed by Dr. Reagan admitted with: Hypoxemic respiratory failure secondary to right lower lobe pneumonia in the setting of immunocompromised state/colon cancer on immunotherapy. sob minimum improvement Pulse oximetry. Continue IV antibiotics: Ceftriaxone and azithromycin. Bronchodilator therapy as needed. pulm eval - added iv steriods( possible pneumonitis component) ,conitnue budesonide ,Supplemental O2 to keep O2 sats > 90%. Elevated transaminases and alk-phos: no abd pain , monitor lft's for now. COPD. Not in acute exacerbation. Continue home inhalers. CAD. Continue statin, aspirin and metoprolol. Neuropathy. Continue gabapentin. ongoing hospitlisation need :Hypoxemic respiratory failure secondary to right lower lobe pneumonia in the setting of immunocompromised state/colon cancer on immunotherapy- need IV antibiotic, oxygen need, close monitoring of respiratory status,pulm eval. Quality Stroke Does the patient have a stroke diagnosis?: No VTE Prior VTE?: No VTE Risk Level:: Medical - moderate - high VTE Device Contraindication: Treatment Not Indicated VTE Drug Contraindication: N/A - Med Ordered
--- NOTE | 2024-05-15 15:58 | MHC.CM.PN ---
per rounds pt will go home no servies when dcd
[2024-05-15] MEDS: Enoxaparin Sodium 40 MG/0.4 ML SYRINGE SUBCUT (16:37)
[2024-05-15] MEDS: Gabapentin 300 MG CAPSULE PO (20:10)
[2024-05-16] MEDS: methylPREDNISolone Sod Succ 40 MG/ML VIAL IVPUSH (01:20)
[2024-05-16 04:04] LABS: Strep Pneumo Ag urine Not Detected (Not Detected)
[2024-05-16 06:18] LABS: Legionella Ag Urine Not Detected (Not Detected)
[2024-05-16 07:17] VITALS: BP 132/60; PULSE 74; RESP 16; TEMP 36.2; O2SAT 94
[2024-05-16] MEDS: Fluticasone/Umeclidinium/Vilanterol 200/62.5/25 BLST.W.DEV 1 PUFF INHALE (08:17)
[2024-05-16 08:18] VITALS: PULSE 74; RESP 16; O2SAT 94
[2024-05-16] MEDS: cefuroxime axetiL 500 MG TABLET PO (09:43)
[2024-05-16] MEDS: Aspirin Enteric Coated 81 MG TABLET.DR PO (09:44)
[2024-05-16] MEDS: Atorvastatin Calcium 80 MG TABLET PO (09:44)
[2024-05-16] MEDS: Cholecalciferol (Vitamin D3) 25 MCG TABLET 50 MCG PO (09:44)
[2024-05-16] MEDS: predniSONE 20 MG TABLET 40 MG PO (09:44)
[2024-05-16] MEDS: Metoprolol Tartrate 25 MG TABLET PO (09:44)
[2024-05-16] MEDS: Azithromycin 500 MG TABLET PO (09:44)
[2024-05-16] MEDS: 0.9 % Sodium Chloride Flush 3 ML SYRINGE IVFLUSH (09:45)
--- NOTE | 2024-05-16 10:59 | MHC.CM.PN ---
PT WILL DC HOME TODAY WITH NO SERVICES VIA FAMILY TRANSPORT
[2024-05-16 11:05] VITALS: PULSE 109; PULSE 98; O2SAT 89; O2SAT 93
--- NOTE | 2024-05-16 11:07 | PM.DS ---
DS: Providers Provider Date of Service: 05/16/24 Date of admission: 05/11/24 20:09 Date of discharge: 05/16/24 Primary care physician: Brandon Buenrostro DO, MD Consults: 05/11/24 20:56 Consult to Hematology / Oncology Routine Consulting Provider: [facility] Reason for consultation: Colon cancer on immunotherapy, pneumonia. Has provider been notified: No 05/12/24 13:34 Consult to Pulmonology Routine Consulting Provider: [facility] Reason for consultation: pneumonia Has provider been notified: No DS: Diagnosis Discharge Diagnosis (1) Hypoxia: Status: Acute (2) Pneumonitis: Status: Acute DS: Summary Hospital Course Hospital Course: 78 y/o F with have oxygen saturation 87% on room air and currently requiring 2 liters/minute supplemental oxygen via nasal cannula. Other vital signs are normal. Blood workup showed no leukocytosis or bandemia. Hemoglobin and platelets are normal. There are no significant electrolyte imbalances. CO2 is 30. Transaminases slightly elevated as well as ALk phos. Renal function is normal and troponin is negative. UA showed protein 1+, ketones trace, blood moderate, nitrite negative, leukocyte esterase 1+ and RBC over 20. CXR showed new right upper lobe consolidative and resolution of right lower lobe consolidation. Pulmonary CTA showed no evidence of PE, however, it showed dense consolidation of the right lower lobe suggesting infectious etiology. ED tx: Doxycycline 100 mg p.o., ceftriaxone 1 g IV. hospital course: Patient was admitted for sob ,hypoxia -further workup cta:Dense consolidation in the right lower lobe suggesting infectious etiology, no leucocytosis -admitted for acute hypoxemic respiratory failure sec to pneumonitis /pneumonia -started on nebs ,antibiotics ,steriods -seen by pulm and oncology -received high dose steriods in addition to antibiotics , now sob imporved ,no hypoxia ,talking in full sentences. mild elevated lft's -unclear etiology ,possible sec to pneumonia,moniter Lft's outpatient . pulm recomended to dc on prednisone prolonged taper , complete azithromycin/ceftin for 6 more days. repeat chest imaging in 1week to see resolution of pneumonia. home oxygen eval done -patient did not qualify follow up with pulm and oncology outpatient. plan: complete :azithromycin 500 mg po daily for 5 days,ceftin 500mg po bid x 6days. prednisone 40mg daily with taper by 10mg every 3 days repeat chest imaging in 1week to see resolution of pneumonia moniter lft's follow up with oncology and pulm outpatient above d/w patient in detail -she understands and in agreement with above plan ,time spent 40 min. Time Attestation Total time managing care of this patient today: 40 mintues. Discharge Coordination Time (in mins): 40 min Quality: Safe Use of Opioids Does Pt have an Active Cancer Diagnosis on the Problem List?: Yes Opioid Measure Date for [facility] Report: 04/16/24 Opioid Measure Time for [facility] Report: 11:20 Quality: Stroke Does the patient have a stroke diagnosis?: No Physical Exam Vital Signs: Vital Signs: Last Vital Signs Temp 97.1 F 05/16/24 07:17 Pulse 74 05/16/24 08:18 Resp 16 05/16/24 08:18 BP 132/60 05/16/24 07:17 Pulse Ox 94 05/16/24 07:17 O2 Del Method Room Air 05/16/24 07:17 O2 Flow Rate 1 05/15/24 07:52 Oxygen Flow Rate 2 05/11/24 14:43 BMI result Body Mass Index 19.3 Appearance: Alert.? Oriented X3.? cvs: rrr, [id number]. res: air entry fair ,diminshed right >left. abd: no rebound or guarding ,nt, bs present. ext pulses present , no cyanosis . neuro: axo3 , nonfocal. DS: Data Data Completed and Pending Labs on day of discharge: Laboratory Results - last 24 hr 05/13/24 12:43 Ur L.pneumophila Ag Not Detected Ur Strep pneumoniae Ag Not Detected Imaging Chest x-ray: Radiologist's impression: ITS Impressions Chest X-Ray 05/11/24 15:06 IMPRESSION: 1. New right upper lobe consolidation. 2. Resolution of right lower lobe consolidation. Chest CTA 05/11/24 18:32 IMPRESSION: 1. No evidence for pulmonary emboli. 2. Dense consolidation in the right lower lobe suggesting infectious etiology. 3. VTE: Negative. Chest X-Ray 05/15/24 07:35 IMPRESSION: Persistent airspace disease in the right upper lung zone. Smaller supradiaphragmatic nodular density measuring 1.4 cm. Discharge Plan Discharge Anticipated Discharge Date/Time: 05/16/24 10:42 Patient Disposition: Home, Self-Care Discharge Diagnosis: pneumonia vs pneumonitis Referrals: Cece Reagan MD [Physician] - 1 Week Brandon Buenrostro DO, MD [Primary Care Provider] - 1 Week Bharat Dominguez MD [Physician] - 1 Week Discharge Medications: New cefuroxime axetil 500 mg Tablet 500 mg PO BID Qty: 12 0RF azithromycin 500 mg Tablet 500 mg PO DAILY Qty: 5 0RF prednisone 10 mg tablet See Taper PO DIRECTED Qty: 30 0RF Taper: Prednisone 40 mg daily for 3 Days and 0 Hour 30 mg daily for 3 Days and 0 Hour 20 mg daily for 3 Days and 0 Hour 10 mg daily for 3 Days and 0 Hour Rx Instructions: see taper instructions Continued Trelegy Ellipta 200-62.5-25 mcg blister with device 1 inh inhalation DAILY 30 Days Qty: 60 12RF gabapentin 300 mg capsule 300 mg DAILY metoprolol tartrate 25 mg tablet 25 mg PO BID aspirin 81 mg tablet,delayed release (DR/EC) 81 mg PO DAILY cholecalciferol (vitamin D3) 50 mcg (2,000 unit) capsule 50 mcg PO DAILY atorvastatin 80 mg tablet 80 mg PO DAILY (DME) nebulizers Misc See Rx Instructions .ROUTE Rx Instructions: As directed Discharge Orders: Discharge Order (Routine); Ordered 05/16/24 Ordered By: Roberto Sousa Diet: Advance to usual diet Activity on Discharge: As tolerated Stand Alone Forms: Patient Portal Discharge page Print Language: Palestinian Other Ambulatory Orders: Comprehensive Met. Panel (Routine) Timeframe: 1 Week Facility: [facility] - Location: Laboratory Ordered By: Roberto Sousa Care Plan Goals: Patient was admitted for sob ,hypoxia -further workup cta:Dense consolidation in the right lower lobe suggesting infectious etiology, no leucocytosis -admitted for acute hypoxemic respiratory failure sec to pneumonitis /pneumonia -started on nebs ,antibiotics ,steriods -seen by pulm and oncology -received high dose steriods in addition to antibiotics , now sob imporved ,no hypoxia ,talking in full sentences. mild elevated lft's -unclear etiology ,possible sec to pneumonia vs underlying malignancy ,moniter Lft's outpatient and further workup outpatient . pulm recomended to dc on prednisone prolonged taper , complete azithromycin/ceftin for 6 more days. repeat chest imaging in 1week to see resolution of pneumonia. follow up with pulm and oncology outpatient. Health Concerns: as above. Plan of Treatment: as above. Assessment: as above. Patient Instructions: Pneumonia (DC)
[2024-05-17 17:03] LABS: SARS COV2 IgG Negative (Negative)
[2024-05-18 10:39] LABS: Myeloperoxidase Antibody <1.0 AI; Proteinase 3 PR3 Antibodies <1.0 AI
[2024-05-20 12:54] LABS: Anti Nuclear Antibody Screen POSITIVE (NEGATIVE)
--- NOTE | 2024-05-26 18:50 | P.CDIM_ITS ---
PROVIDER RESPONSE TEXT: To clarify, the appropriate diagnosis supported by the clinical indicators: Acute QUERY TEXT: >>> Provider Instructions - Do not remove this line >>> PHYSICIAN'S DOCUMENTATION REQUEST Date of Query: 05/20/2024 06:44 AM EDT Patient Name: Zoya Emerson Admit Date: 05/12/2024 Dear Roberto Sousa MD, A review of the medical record indicates additional documentation may be needed. Please review below and update the documentation accordingly. Clinical Indicators: Per Hospitalist Progress Note 05/13/24: Hypoxemic respiratory failure secondary to right lower lobe pneumonia in the setting of immunocomprom ised state/colon cancer on immunotherapy. Pulse oximetry, IV antibiotics, bronchodilator prn, supplemental oxygen Clarify which of the following accurately represents the acuity of the Hypoxemic respiratory failure . Possible options might include: <<< Provider Instructions - Do not remove this line <<< Acute Acute on chronic Compensated Chronic stable condition Remission Other (explain) Clinically unable to determine (explain) >>> Contact Info - Do not remove this line>>> Thank you, Cari Shore RN Use of terms such as suspected, likely, concern for, or probable (associated with a specific diagnosi s that is being evaluated, monitored, or treated as if it exists) are acceptable and can be coded in the inpatient se tting, when documented at the time of discharge. Please use your independent medical judgment in providing your response. THIS QUERY IS PART OF THE PERMANENT MEDICAL RECORD <<< Contact Info - Do not remove this line <<< >>> Disclaimer - Do no remove this line>>> Extension: [phone] <<< Disclaimer - Do not remove this line<<<
--- NOTE | 2024-05-26 18:50 | P.CDIM_ITS ---
PROVIDER RESPONSE TEXT: To clarify, the appropriate diagnosis supported by the clinical indicators: BMI is not significant QUERY TEXT: PHYSICIAN'S DOCUMENTATION REQUEST Date of Query: 05/20/2024 06:47 AM EDT Patient Name: Zoya Emerson Admit Date: 05/12/2024 Dear Roberto Sousa MD, A review of the medical record indicates additional documentation may be needed. Please review below and update the documentation accordingly. Clinical Indicators: Height: ( ) 5'4 Weight: ( ) 51 kg BMI: ( ) 19.3 Other Clinical Notes Supporting Significance of the BMI: Per Nutritional Risk Assessment 05/12/24: On therapeutic diet PO intake < 50 % x5 days If possible, please provide an associated diagnosis related to the abnormal BMI, such as: Underweight Weight loss Cachexia Anorexia BMI is not significant Other (explain) Clinically unable to determine (explain) Thank you, Cari Shore RN Use of terms such as suspected, likely, concern for, or probable (associated with a specific diagnosi s that is being evaluated, monitored, or treated as if it exists) are acceptable and can be coded in the inpatient se tting, when documented at the time of discharge. Please use your independent medical judgment in providing your response. THIS QUERY IS PART OF THE PERMANENT MEDICAL RECORD
[2024-05-29 17:04] LABS: Asperg fumigatus Precip Abs NEGATIVE (NEGATIVE); Micropoly faeni Abs NEGATIVE (NEGATIVE); Pigeon serum Abs NEGATIVE (NEGATIVE); Saccharo pora viridis Abs NEGATIVE (NEGATIVE); Thermo candidus Abs NEGATIVE (NEGATIVE); Thermoa vulgaris #1 NEGATIVE (NEGATIVE)
== END 2024-05-16 15:36 | disposition home or self-care (01) | DRG 194 ==
LOC: HO.ED 19:16 → HO.EDOVER 20:33 → HO.S3 21:31
PROVIDERS: Hospitalist; Physician Assistant; Admitting Provider Internal Medicine; Emergency Provider Student in an Organized Health Care Education/Training Program; PCP Internal Medicine; Visit Provider Internal Medicine
DX: J18.9 Pneumonia, unspecified organism (principal); C18.2 Malignant neoplasm of ascending colon; J44.0 Chronic obstructive pulmonary disease with (acute) lower respiratory infection; D84.821 Immunodeficiency due to drugs; C77.2 Secondary and unspecified malignant neoplasm of intra-abdominal lymph nodes; G62.9 Polyneuropathy, unspecified; I25.10 Atherosclerotic heart disease of native coronary artery without angina pectoris; Z20.822 Contact with and (suspected) exposure to COVID-19; Z98.0 Intestinal bypass and anastomosis status; Z79.82 Long term (current) use of aspirin; Z79.51 Long term (current) use of inhaled steroids; Z79.620 Long term (current) use of immunosuppressive biologic; Z79.899 Other long term (current) drug therapy
CPT/HCPCS: 0241U; 36415; 71045; 71275; 80053; 81001; 82784; 82785; 83735; 84145; 84484; 85025; 85652; 86021; 86038; 86039; 86331; 86606; 86609; 86769; 87086; 87449; 87899; 93005; 94640; 97162; 99285; J0456; J0696; J1642; J1644; J1650; J2405; J2919; Q9967

== ENCOUNTER → 2024-05-11 14:42 | Outpatient (BNV) | payer MEDICARE, SELFPAY | PROVIDERS: Admitting Provider Internal Medicine; Emergency Provider Student in an Organized Health Care Education/Training Program; PCP Internal Medicine; Visit Provider Internal Medicine Cardiovascular Disease | DX: R94.31 Abnormal electrocardiogram [ECG] [EKG] (principal) | CPT/HCPCS: 93010 ==

== ENCOUNTER → 2024-05-11 20:09 | Outpatient (BNV) | payer MEDICARE, SELFPAY | PROVIDERS: Admitting Provider Internal Medicine; Emergency Provider Student in an Organized Health Care Education/Training Program; PCP Internal Medicine; Visit Provider Internal Medicine | DX: C18.2 Malignant neoplasm of ascending colon (principal) | CPT/HCPCS: 99222; 99231 ==

== ENCOUNTER → 2024-05-11 20:09 | Outpatient (BNV) | payer MEDICARE, SELFPAY | PROVIDERS: Admitting Provider Internal Medicine; Emergency Provider Student in an Organized Health Care Education/Training Program; PCP Internal Medicine; Visit Provider Hospitalist | DX: J96.01 Acute respiratory failure with hypoxia (principal); J18.9 Pneumonia, unspecified organism; J41.0 Simple chronic bronchitis | CPT/HCPCS: 99223; 99233 ==

== ENCOUNTER → 2024-05-11 20:09 | Outpatient (BNV) | payer MEDICARE, SELFPAY | PROVIDERS: Admitting Provider Internal Medicine; Emergency Provider Student in an Organized Health Care Education/Training Program; PCP Internal Medicine; Visit Provider Internal Medicine | DX: J96.01 Acute respiratory failure with hypoxia (principal); J18.9 Pneumonia, unspecified organism | CPT/HCPCS: 99223; 99231; 99232; 99239 ==

== ENCOUNTER 2024-06-10 13:05 | Outpatient (AMB) | payer MEDICARE, SELFPAY ==
--- NOTE | 2024-06-10 13:09 | A.OFFVIS_ITS ---
Vital Signs 06/10/24 13:10 Height 5 ft 4.5 in Weight 117 lb 2 oz BMI 19.8 BP 106/68 Blood Pressure Location Rt brachial Position Sitting Pulse 87 Pulse Source Pulse Oximeter Pulse Oximetry (%) 95 Oxygen Delivery Method Room Air Intake Visit Reasons: cough, chest congestion Allergies No Known Allergies Allergy (Verified 06/10/24 13:13) HPI HPI cough, chest congestion: Details: Zoya is a pleasant 78 year old female,former smoker, followed for severe COPD and pulmonary nodules with diagnosis of colon adenocarcinoma 11/2022 s/p resection. She was started on Keytruda beginning of March 2023 developed pneumonitis after first dose of Keytruda, subsequently hospitalized at [facility] on 04/01/23 treated with IV solumedrol and dischaged with prednisone with slow resolution of symptoms. Today she presents for hospital follow up after recent admission, discharged on 05/16/24 for acute respiratory failure secondary to pneumonia vs pneumonitis related to Keytruda. CT revealed dense consolidation of RLL with areas suggestive of pneumonitis. She was treated with IV abx and IV steroids with improvement, ultimately discharged on azithromycin, ceftin and prednisone. She did not require supplemental oxygen upon discharge. She reports symptoms continued to improve and had resolution of cough and dyspnea after completing antibiotics. However after discontinuing prednisone, the following day cough recurred. She continues with cough occasionally productive with white sputum. She denies wheezing, chest congestion or dyspnea. She denies fevers or chills. [facility] Medical History (Updated 06/11/24 @ 19:56 by Karla Perdue NP) CAD (coronary artery disease) Colon adenocarcinoma Pneumonia COPD (chronic obstructive pulmonary disease) Blood D-dimer assay positive Chronic respiratory failure Pulmonary nodules Surgical History S/P colon resection Family History Sister Dementia Breast cancer Father Emphysema lung Mother Social History Household Members: Family Household Members Other:: granddaughter Housing: House Do you presently have visiting nurse or other home services: No Patient Tobacco Use Status: Former Tobacco user Tobacco use type: Cigarette service: No Current occupational status: retired Review of Systems Const Denies chills, Denies excessive sweating, Denies fever(s), Denies headache(s) and Denies night sweats Eyes Denies dry eyes, Denies irritation and Denies itchy eyes ENT Reports Normal hearing present, Denies headache(s), Denies nasal congestion, Denies nasal discharge, Denies post nasal drip and Denies sore throat Card Denies chest pain, Denies chest pain at rest, Denies chest pain with activity, Denies leg edema, Denies orthopnea and Denies paroxysmal nocturnal dyspnea Resp Denies chest congestion, Denies excessive phlegm production, Denies pain on inspiration, Denies pain with cough and Denies stridor Musc Denies myalgias Neuro Reports Normal hearing present and Denies headache(s) Endo Denies excessive sweating [place]/Lymph Denies lymphadenopathy Aller/Immun Denies itchy eyes and Denies seasonal rhinorrhea Physical Exam Vital Signs: Last Vital Signs Pulse 87 06/10/24 13:10 BP 106/68 06/10/24 13:10 Pulse Ox 95 06/10/24 13:10 Oxygen Delivery Method Room Air 06/10/24 13:10 BMI result Body Mass Index 19.8 Const General: cooperative, healthy appearing, comfortable, no acute distress, well developed and alert Orientation/consciousness: patient oriented x3 Limitations: no limitations HEENT Head: Yes normal to inspection, Yes normocephalic and Yes atraumatic Ears: hearing grossly normal bilaterally and external ears normal Eyes General: appearance normal, both eyes and all related structures Eyelids: Yes eyelids normal Sclerae: sclerae normal EOM: EOMs intact bilaterally Neck Neck: Yes normal visual inspection and Yes no lymphadenopathy Lymphatic: no lymphadenopathy noted Chest Chest palpation & inspection: normal inspection of the chest Resp Effort & Inspection: normal respiratory effort, able to speak in complete sentences, no audible wheezes, Actively coughing Quality: dry, no stridor, not tachypneic, no tripod positioning and no use of accessory muscles Auscultation: diminished lung sounds Cardio Jugular venous distension: no JVD Rate: regular rate Rhythm: regular rhythm Skin Other: warm, dry General skin exam: no rashes or lesions noted Neuro General: patient oriented x3 Cranial nerves: Yes Normal hearing present Cognition (Neuro): normal cognition Gait exam (Neuro): Normal gait present Extrem General: Yes normal to inspection, Yes capillary refill normal, Yes no clubbing, cyanosis or edema and Yes no pedal edema Psych Appearance: grossly normal and well kempt Speech and movement: Normal speech and movement present and Clear speech present Affect: normal affect Attitude: cooperative Thought process: Normal thought process present Thought content: Normal thought content present Insight: Good insight present (Psych) Judgement: Good judgement present (Psych) Results Reviewed Results Reviewed: [address] [address] [address] Scan Report Signed Patient: Zoya Emerson MR#: [id number] : 1945 Acct:[id number] Age/Sex: 78 / F ADM Date: 05/11/24 Loc: .ED Attending Dr: Ordering Physician: Sarmad Liu Date of Service: 05/11/24 Procedure(s): CT angio chest PE protocol Accession Number(s): [id number] cc: Sarmad Liu; Brandon Buenrostro DO, MD~ EXAMINATION: CTA CHEST PE STUDY CLINICAL INFORMATION: sob COMPARISON: No pertinent prior studies are available for comparison. TECHNIQUE: Prior to contrast administration, noncontrast localization images were obtained. After the administration of 65 mL of Omnipaque nonionic IV contrast, contiguous thin slice helical images were obtained through the thorax. Reformatted MIP images in the coronal and sagittal planes were obtained at the acquisition workstation. This CT examination was performed using dose optimization techniques as appropriate, variously including the following: *Automated exposure control *Adjustment of mA and/or kV according to patient size (this includes techniques or standardized protocols for targeted exams where dose is matched to indication/reason for exam; i.e. extremities or head) *Use of iterative reconstruction technique DLP: 215 mGy-cm. FINDINGS: The bolus timing on this study was acceptable for visualization of the pulmonary arterial tree. There are no intraluminal pulmonary arterial filling defects present to suggest pulmonary embolism. Dense consolidation with air bronchograms in the right lower lobe suggesting infectious etiology. Mild chronic appearing changes otherwise. No abnormal pulmonary nodules or masses are appreciated. No significant hilar or mediastinal adenopathy. There is no evidence of pleural effusion or pneumothorax. The heart is normal in size. No evidence of ventricular septal bowing or right heart strain. Great vessels are normal. There is no pericardial effusion or pericardial thickening. Bilateral calcified breast implants. Limited evaluation of the upper abdominal viscera is unremarkable. CT/CT angio chest PE protocol IMPRESSION: 1. No evidence for pulmonary emboli. 2. Dense consolidation in the right lower lobe suggesting infectious etiology. 3. VTE: Negative. Dictated By: Felton Daniels MD Signed By: <Electronically signed by Felton Daniels MD in OV> 05/11/24 1906 DD/ 1832 TD/TT: Program Management Manager: KAYLEY Assessment & Plan Assessment & Plan (1) Chronic respiratory failure: Code(s): J96.10 - Chronic respiratory failure, unspecified whether with hypoxia or hypercapnia Category: Medical Qualifiers: Respiratory failure complication: hypoxia Qualified Code(s): J96.11 - Chronic respiratory failure with hypoxia (2) COPD (chronic obstructive pulmonary disease): Comment: severe based on PFTs Code(s): J44.9 - Chronic obstructive pulmonary disease, unspecified Category: Medical Qualifiers: COPD type: chronic bronchitis Chronic bronchitis type: simple Qualified Code(s): J41.0 - Simple chronic bronchitis (3) Pneumonitis: Code(s): J18.9 - Pneumonia, unspecified organism Category: Medical Plan Zoya presents after hospital discharge for pneumonitis vs infectious process. She was discharged on antibiotics and prednisone, however once prednisone was completed, cough recurred. Will send prednisone today for pneumonitis and patient aware if symptoms do not improve to call office as symptoms may be related to infectious process, would consider bronchoscopy at that time. If symptoms worsen, to seek emergent care. Will send for CXR to assess resolution of consolidation of RLL, found on prior chest CT. All questions were answered and patient is in agreement of plan. Will follow up with Dr. Dominguez for regularly scheduled appointment or sooner if needed. Orders: Orders XR chest 2V 06/10/24 J18.9 - Pneumonia, unspecified organism Medications: New prednisone see taper instructions; 40 mg Daily x3 days, 30 mg daily x3 days, 20 mg daily x3 days, 10 mg daily x3 days 10 mg PO DIRECTED 30 tabs 0RF Coding Level of Care Code Est Pt Level 4 (45984) Diagnoses Chronic respiratory failure with hypoxia J96.11 Respiratory failure complication: hypoxia Simple chronic bronchitis J41.0 COPD type: chronic bronchitis Chronic bronchitis type: simple Pneumonitis J18.9
[2024-06-10 13:10] VITALS: BP 106/68; PULSE 87; O2SAT 95; BMI 19.8
== END 2024-06-10 14:10 | disposition home or self-care (01) ==
PROVIDERS: PCP Internal Medicine; Visit Provider Nurse Practitioner Family
DX: J96.11 Chronic respiratory failure with hypoxia (principal); J41.0 Simple chronic bronchitis; J18.9 Pneumonia, unspecified organism
CPT/HCPCS: 99214

== ENCOUNTER → 2024-06-10 13:05 | Outpatient (BNVA) | payer MEDICARE, SELFPAY | PROVIDERS: PCP Internal Medicine; Visit Provider Nurse Practitioner Family | DX: J96.11 Chronic respiratory failure with hypoxia (principal); J41.0 Simple chronic bronchitis; J18.9 Pneumonia, unspecified organism | CPT/HCPCS: 99212 ==

== ENCOUNTER 2024-06-12 10:47 | Outpatient (REF) | payer MEDICARE, SELFPAY ==
--- NOTE | ~2024-06-12 | XR_ITS ---
EXAMINATION: XR CHEST CLINICAL INFORMATION: Pneumonia COMPARISON: Chest radiograph 05/15/2024 TECHNIQUE: 2 views of the chest were obtained. FINDINGS: Right chest for Port-A-Cath with its tip projecting over the cavoatrial junction. Bilateral breast implants with capsular calcifications. Interval resolution of previously noted patchy airspace opacity within the right upper lung. Similar streaky opacities in the right lung base. Previously described nodular opacity in the right lower lung is not well evaluated due to overlying breast implant calcifications. The left lung is clear. No pleural effusions. No pneumothorax. The cardiovascular silhouette is unchanged. No acute osseous abnormality. Degenerative changes of the thoracic spine. XR/XR chest 2V IMPRESSION: Interval resolution of previously noted patchy air space opacity within the right upper lung. Streaky right basilar atelectasis. Previously described nodular opacity in the right lower lung is not well evaluated due to overlying breast implant calcifications. Electronically signed by: Jose Heard MD 06/12/2024 01:35 PM EDT
== END 2024-06-12 10:48 | disposition home or self-care (01) ==
LOC: HO.XRAY 10:47
PROVIDERS: PCP Internal Medicine; Visit Provider Internal Medicine
DX: J18.9 Pneumonia, unspecified organism (principal)
CPT/HCPCS: 71046

== ENCOUNTER 2024-07-08 09:30 | Outpatient (AMB) | payer MEDICARE, SELFPAY ==
--- NOTE | 2024-07-08 09:42 | MHC.OFFVIS ---
Vital Signs 07/08/24 09:44 Height 5 ft 4.5 in Weight 119 lb 0.794 oz BMI 20.1 BP 110/60 Blood Pressure Location Lt brachial Position Sitting Pulse 56 Pulse Source Pulse Oximeter Pulse Oximetry (%) 99 Oxygen Delivery Method Room Air Intake Visit Reasons: Pneumonia Director Of Strategic Sourcing Required: No Allergies No Known Allergies Allergy (Verified 07/08/24 09:43) HPI Comments Details: The patient is a 78 year woman who apparently was in usual state health until the last several weeks when she started developing worsening shortness of breath. She was evaluated at [facility] where she was admitted to the hospital. There she did undergo a CT scan of the chest PE protocol ruling out PE although she had multiple patchy areas of consolidations and nodular densities. It was suspicious for inflammatory process versus infectious atypical process. She was given a course of prednisone and also antibiotics. Her symptoms did improve initially initially. However she also needed oxygen. She was discharged and then tapered off the prednisone. She has been noticing worsening shortness of breath. I personally reviewed the images. Appears that the it patchy opacities are primarily in a bronchovascular distribution. Noninfectious inflammatory conditions such as cryptogenic organizing pneumonia is in differential. The patient also went for 6 minute walk test. The patient still requires about 3 L of continues oxygen to maintain are within the low 90s. Therefore will submit that to her [employer]. Explained to her that she cannot use effectively a conserving device or portable oxygen concentrator. Dose will not provide her enough relief or help with her hypoxia. Patient also using the oxygen at nighttime. In view of the CT scan findings she will undergo blood work. Rivka Dawson ruled out pulmonary emboli based on the CTA. However I will order D-dimer again just to reassess. If her D-dimer is elevated and a V/Q scan will be helpful to assess for thromboembolic disease. 11/05/2022 the patient is here for a pulmonary follow-up visit. She is down to 5 mg of prednisone daily. She is getting some dyspepsia Erika he had sensation middle the chest. Will place her on a PPI to try to minimize symptoms. We again talked about the findings on the CT scan. Does not appear to be concerning for malignancy although it is still in differential. It appears to be more inflammatory. Her blood work included a positive JAXON although very slow titers. If she also had a significantly elevated sedimentation rate of 86. The significance of that is still not clear. Her vasculitis workup was negative and her hypersensitive workup also negative. She is feeling better. She is not using the oxygen which is reassuring. She also did undergo pulmonary function studies which we personally reviewed the patient does have severe COPD based on the PFTs and does have a significant response to bronchodilators. Therefore will go ahead and start her on a maintenance inhaler to see if we can alleviate some of her symptoms. She will need a repeat CT scan of the chest to follow up with the abnormal masslike opacities that she had a previous CT scan. Will follow-up after her CT scan. 05/23/2023 the patient is here for pulmonary follow-up visit. Reason she was to be sent March with worsening respiratory symptoms. X-ray demonstrated pneumonia. The patient's treating release. Above discharge the patient continue to have a worsening cough along with shortness of breath. She was prescribed azithromycin and also prednisone. She did not take the prednisone since he really affected her adversely when she had prescribed at [facility]. Explained to her that was likely a high dose making it difficult for her to tolerated. However, give her small dose of medicine a would be tolerable. The patient did have a CT scan of the chest here at [place] on May 07. I personally reviewed with her. It looks like the pneumonia cleared up. However, she does have areas of ground-glass opacities suggesting some persistent pneumonitis. She had been as on a small dose of prednisone and I do believe that she continues to need a little bit of prednisone. Therefore will start her on 10 mg daily for 2 weeks and then she can taper down to 5 mg for another 1-2 weeks. The patient will be evaluated by Oncology again both here at [place] and also in [place]. The patient is aware that if she starts immune therapy again she has start the prednisone altogether will also extend her antibiotics since she is still expectorating some phlegm. Overall she is feeling better. 06/20/2023 the patient is here for a pulmonary follow-up visit. Overall the patient has been feeling better from a respiratory standpoint. She continues on prednisone. Now taking half a tablet, 5 mg, daily. She has 2 more weeks. In the meantime she she was start her new treatment tomorrow for her colon cancer. She did not tolerate immune therapy. She will be starting monoclonal antibodies and tiredness kinase inhibitors. Hopefully she can tolerate the therapy better in the meantime will go ahead and repeat her chest x-ray when she has completed the prednisone. If the patient has any worsening symptoms prior to the next visit the patient is to call the office for an earlier assessment. 09/20/2023 the patient is here for a pulmonary follow-up visit. She is doing very well from a respiratory status. She is off the prednisone and she is also off the oxygen right now. She recently did have a reversible her ostomy bag which is very happy about. She is 2 weeks out. She will be talking to her oncologist soon. She is wondering about going back tried immune therapy. The immune therapy likely resulted adverse reactions such as pneumonitis. However, it worked well for her cancer. Seems like it help shrink the cancer. She will talk to her oncologist regarding that potential therapy. In the meantime if she does go back on immune therapy will have to provide her with additional inhaled steroids to try to minimize the pulmonary adverse effects and she can not tolerate it. 07/08/2024 the patient is here for pulmonary follow-up visit. Overall she is doing a lot better since she was in the hospital. She had a significant reaction to the immune therapy resulting in significant pneumonitis and respiratory failure. She required high doses of steroids in addition to oxygen supplementation. Now she is off all steroids and is also on room air. She was able to return the oxygen. The patient did start a new regimen by Oncology. Seems to be tolerating it better. No evidence of any respiratory complaints. These 2 agents are less likely to cause pulmonary manifestations. She is slowly increasing the dose to make sure that she tolerates it. We did review her last chest x-ray from 03/26/2024 with interval resolution of the ground-glass opacities and airspace disease. Will go ahead and plan to repeat the x-ray in the coming months. She continues on the Trelegy inhaler. She has been a little more congested lately. Productive in nature difficult to expectorate. Moderate severity. May be developing about bronchitis. Will go ahead start her on doxycycline. If the patient is no better for chest congestion worsens she will call the office for further evaluation and recommendations. [facility] Medical History (Updated 07/08/24 @ 21:59 by Bharat Dominguez MD) CAD (coronary artery disease) Colon adenocarcinoma Pneumonia COPD (chronic obstructive pulmonary disease) Blood D-dimer assay positive Chronic respiratory failure Pulmonary nodules Surgical History S/P colon resection Family History Sister Dementia Breast cancer Father Emphysema lung Mother Social History Household Members: Family Household Members Other:: granddaughter Housing: House Do you presently have visiting nurse or other home services: No Patient Tobacco Use Status: Former Tobacco user Tobacco use type: Cigarette service: No Current occupational status: retired Review of Systems Const Denies fever(s), Reports poor appetite and Reports weight loss Eyes Denies change in vision and Denies itchy eyes ENT Denies change in voice Card Denies chest pain and Reports dyspnea on exertion Resp Denies chest congestion, Reports cough and Reports dyspnea on exertion GI Denies abdominal pain Skin/Breast Denies rash Psych Reports no additional complaints Endo Denies heat intolerance Kol[place]/Lymph Denies easy bruising Aller/Immun Denies urticaria and Denies itchy eyes Physical Exam Vital Signs: Last Vital Signs Pulse 56 07/08/24 09:44 BP 110/60 07/08/24 09:44 Pulse Ox 99 07/08/24 09:44 Oxygen Delivery Method Room Air 07/08/24 09:44 BMI result Body Mass Index 20.1 Last Vital Signs Temp 97 F 05/15/24 07:52 Pulse 69 05/15/24 08:52 Resp 18 05/15/24 08:03 BP 119/72 05/15/24 08:52 Pulse Ox 93 05/15/24 07:52 O2 Del Method Nasal Cannula 05/15/24 07:52 O2 Flow Rate 1 05/15/24 07:52 Oxygen Flow Rate 2 05/11/24 14:43 BMI result Body Mass Index 19.3 Const General: comfortable HEENT Head: Yes normocephalic Neck Neck: Yes supple Chest Chest palpation & inspection: normal inspection of the chest Resp Effort & Inspection: normal respiratory effort Auscultation: clear to auscultation bilaterally, no crackles, no rhonchi and no wheezes Cardio Heart sounds: S1 normal heart sound present and S2 normal heart sound present GI Palpation (GI): Soft to palpation Skin General skin exam: no rashes or lesions noted Extrem General: Yes no clubbing, cyanosis or edema Assessment & Plan Assessment & Plan (1) Chronic respiratory failure: Code(s): J96.10 - Chronic respiratory failure, unspecified whether with hypoxia or hypercapnia Category: Medical Qualifiers: Respiratory failure complication: hypoxia Qualified Code(s): J96.11 - Chronic respiratory failure with hypoxia (2) Pulmonary nodules: Code(s): R91.8 - Other nonspecific abnormal finding of lung field Category: Medical (3) COPD (chronic obstructive pulmonary disease): Comment: severe based on PFTs Code(s): J44.9 - Chronic obstructive pulmonary disease, unspecified Category: Medical Qualifiers: COPD type: chronic bronchitis Chronic bronchitis type: simple Qualified Code(s): J41.0 - Simple chronic bronchitis (4) Pneumonitis: Comment: resolved Code(s): J18.9 - Pneumonia, unspecified organism Category: Medical (5) Bronchitis: Code(s): J40 - Bronchitis, not specified as acute or chronic Category: Medical Plan start Doxycycline continue Trelegy 200 reflux diet encorafenib with cetuximab therapy, low risk for pulmonary adverse effects CXR F/U 3-4 months Orders: Orders XR chest 2V Today J18.9 - Pneumonia, unspecified organism Medications: New doxycycline hyclate 100 mg PO BID 10 days 20 caps 0RF Coding Level of Care Code Est Pt Level 4 (90050) Complex EM visit Add On G2211 Diagnoses Chronic respiratory failure with hypoxia J96.11 Respiratory failure complication: hypoxia Pulmonary nodules R91.8 Simple chronic bronchitis J41.0 COPD type: chronic bronchitis Chronic bronchitis type: simple Pneumonitis J18.9 Bronchitis J40 Time Spent (min) 17
[2024-07-08 09:44] VITALS: BP 110/60; PULSE 56; O2SAT 99; BMI 20.1
== END 2024-07-08 10:03 | disposition home or self-care (01) ==
PROVIDERS: PCP Internal Medicine; Visit Provider Hospitalist
DX: J96.11 Chronic respiratory failure with hypoxia (principal); R91.8 Other nonspecific abnormal finding of lung field; J41.0 Simple chronic bronchitis; J18.9 Pneumonia, unspecified organism; J40 Bronchitis, not specified as acute or chronic
CPT/HCPCS: 99214; G2211

== ENCOUNTER → 2024-07-08 09:30 | Outpatient (BNVA) | payer MEDICARE, SELFPAY | PROVIDERS: PCP Internal Medicine; Visit Provider Hospitalist | DX: J96.11 Chronic respiratory failure with hypoxia (principal); J41.0 Simple chronic bronchitis; J18.9 Pneumonia, unspecified organism; J40 Bronchitis, not specified as acute or chronic; R91.8 Other nonspecific abnormal finding of lung field | CPT/HCPCS: 99212 ==

== ENCOUNTER 2024-10-09 09:34 | Outpatient (AMB) | payer MEDICARE, SELFPAY ==
--- NOTE | 2024-10-09 09:41 | A.OFFVIS_ITS ---
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 She was evaluated at [facility] where she was admitted to the hospital. There she did undergo a CT scan of the chest PE protocol ruling out PE although she had multiple patchy areas of consolidations and nodular densities. It was suspicious for inflammatory process versus infectious atypical process. She was given a course of prednisone and also antibiotics. Her symptoms did improve initially initially. However she also needed oxygen. She was discharged and then tapered off the prednisone. She has been noticing worsening shortness of breath. I personally reviewed the images. Appears that the it patchy opacities are primarily in a bronchovascular distribution. Noninfectious inflammatory conditions such as cryptogenic organizing pneumonia is in differential. The patient also went for 6 minute walk test. The patient still requires about 3 L of continues oxygen to maintain are within the low 90s. Therefore will submit that to her [employer]. Explained to her that she cannot use effectively a conserving device or portable oxygen concentrator. Dose will not provide her enough relief or help with her hypoxia. Patient also using the oxygen at nighttime. In view of the CT scan findings she will undergo blood work. Rivka Dawson ruled out pulmonary emboli based on the CTA. However I will order D-dimer again just to reassess. If her D-dimer is elevated and a V/Q scan will be helpful to assess for thromboembolic disease. 11/05/2022 the patient is here for a pulmonary follow-up visit. She is down to 5 mg of prednisone daily. She is getting some dyspepsia Erika he had sensation middle the chest. Will place her on a PPI to try to minimize symptoms. We again talked about the findings on the CT scan. Does not appear to be concerning for malignancy although it is still in differential. It appears to be more inflammatory. Her blood work included a positive JAXON although very slow titers. If she also had a significantly elevated sedimentation rate of 86. The significance of that is still not clear. Her vasculitis workup was negative and her hypersensitive workup also negative. She is feeling better. She is not using the oxygen which is reassuring. She also did undergo pulmonary function studies which we personally reviewed the patient does have severe COPD based on the PFTs and does have a significant response to bronchodilators. Therefore will go ahead and start her on a maintenance inhaler to see if we can alleviate some of her symptoms. She will need a repeat CT scan of the chest to follow up with the abnormal masslike opacities that she had a previous CT scan. Will follow-up after her CT scan. 05/23/2023 the patient is here for pulmonary follow-up visit. Reason she was to be sent March with worsening respiratory symptoms. X-ray demonstrated pneumonia. The patient's treating release. Above discharge the patient continue to have a worsening cough along with shortness of breath. She was prescribed azithromycin and also prednisone. She did not take the prednisone since he really affected her adversely when she had prescribed at [facility]. Explained to her that was likely a high dose making it difficult for her to tolerated. However, give her small dose of medicine a would be tolerable. The patient did have a CT scan of the chest here at [facility] on May 07. I personally reviewed with her. It looks like the pneumonia cleared up. However, she does have areas of ground- glass opacities suggesting some persistent pneumonitis. She had been as on a small dose of prednisone and I do believe that she continues to need a little bit of prednisone. Therefore will start her on 10 mg daily for 2 weeks and then she can taper down to 5 mg for another 1-2 weeks. The patient will be evaluated by Oncology again both here at [facility] and also in [facility]. The patient is aware that if she starts immune therapy again she has start the prednisone altogether will also extend her antibiotics since she is still expectorating some phlegm. Overall she is feeling better. 06/20/2023 the patient is here for a pulmonary follow-up visit. Overall the patient has been feeling better from a respiratory standpoint. She continues on prednisone. Now taking half a tablet, 5 mg, daily. She has 2 more weeks. In the meantime she she was start her new treatment tomorrow for her colon cancer. She did not tolerate immune therapy. She will be starting monoclonal antibodies and tiredness kinase inhibitors. Hopefully she can tolerate the therapy better in the meantime will go ahead and repeat her chest x-ray when she has completed the prednisone. If the patient has any worsening symptoms prior to the next visit the patient is to call the office for an earlier assessment. 09/20/2023 the patient is here for a pulmonary follow-up visit. She is doing very well from a respiratory status. She is off the prednisone and she is also off the oxygen right now. She recently did have a reversible her ostomy bag which is very happy about. She is 2 weeks out. She will be talking to her oncologist soon. She is wondering about going back tried immune therapy. The immune therapy likely resulted adverse reactions such as pneumonitis. However, it worked well for her cancer. Seems like it help shrink the cancer. She will talk to her oncologist regarding that potential therapy. In the meantime if she does go back on immune therapy will have to provide her with additional inhaled steroids to try to minimize the pulmonary adverse effects and she can not tolerate it. 07/08/2024 the patient is here for pulmonary follow-up visit. Overall she is doing a lot better since she was in the hospital. She had a significant reaction to the immune therapy resulting in significant pneumonitis and respiratory failure. She required high doses of steroids in addition to oxygen supplementation. Now she is off all steroids and is also on room air. She was able to return the oxygen. The patient did start a new regimen by Oncology. Seems to be tolerating it better. No evidence of any respiratory complaints. These 2 agents are less likely to cause pulmonary manifestations. She is slowly increasing the dose to make sure that she tolerates it. We did review her last chest x-ray from 9 03/26/2024 with interval resolution of the ground-glass opacities and airspace disease. Will go ahead and plan to repeat the x-ray in the coming months. She continues on the Trelegy inhaler. She has been a little more congested lately. Productive in nature difficult to expectorate. Moderate severity. May be developing about bronchitis. Will go ahead start her on doxycycline. If the patient is no better for chest congestion worsens she will call the office for further evaluation and recommendations. 10/09/2024 the patient is here for a pulmonary follow-up visit. The patient overall has been doing well. She is no longer using the oxygen. She continues to tolerate the current targeted therapy for her colon cancer. Has not been affecting her lungs which is reassuring. She has actually gained some weight. She has not been using the Trelegy because it is expensive for her. While go ahead and send her Wixela in order for her to be on some degree of cortical steroid therapy to minimize inflammation to the lungs. She will pick it up at the pharmacy started. She does have a PET scan scheduled soon. Hopefully based on the fact that she is doing clinically well and also she demonstrates stability of disease. Will follow-up in 4-6 months. [facility] Medical History (Updated 08/17/24 @ 10:53 by Cece Reagan MD) CAD (coronary artery disease) Colon adenocarcinoma Pneumonia COPD (chronic obstructive pulmonary disease) Blood D-dimer assay positive Chronic respiratory failure Pulmonary nodules Surgical History S/P colon resection Family History Sister Dementia Breast cancer Father Emphysema lung Mother Social History Household Members: Family Household Members Other:: granddaughter Housing: House Do you presently have visiting nurse or other home services: No Patient Tobacco Use Status: Former Tobacco user Tobacco use type: Cigarette service: No Current occupational status: retired Review of Systems Const Denies fever(s) and Reports weight gain Eyes Denies change in vision and Denies itchy eyes ENT Denies change in voice Card Denies chest pain and Reports dyspnea on exertion Resp Denies chest congestion, Reports cough and Reports dyspnea on exertion GI Denies abdominal pain Skin/Breast Denies rash Psych Reports no additional complaints Endo Denies heat intolerance [place]/Lymph Denies easy bruising Aller/Immun Denies urticaria and Denies itchy eyes Physical Exam Vital Signs: Last Vital Signs Pulse 74 10/09/24 09:42 BP 102/52 L 10/09/24 09:42 Pulse Ox 97 10/09/24 09:42 Oxygen Delivery Method Room Air 10/09/24 09:42 BMI result Body Mass Index 20.5 Last Vital Signs Temp 97 F 05/15/24 07:52 Pulse 69 05/15/24 08:52 Resp 18 05/15/24 08:03 BP 119/72 05/15/24 08:52 Pulse Ox 93 05/15/24 07:52 O2 Del Method Nasal Cannula 05/15/24 07:52 O2 Flow Rate 1 05/15/24 07:52 Oxygen Flow Rate 2 05/11/24 14:43 BMI result Body Mass Index 19.3 Const General: comfortable HEENT Head: Yes normocephalic Neck Neck: Yes supple Chest Chest palpation & inspection: normal inspection of the chest Resp Effort & Inspection: normal respiratory effort Auscultation: clear to auscultation bilaterally, no crackles, no rhonchi and no wheezes Cardio Heart sounds: S1 normal heart sound present and S2 normal heart sound present GI Palpation (GI): Soft to palpation Skin General skin exam: no rashes or lesions noted Extrem General: Yes no clubbing, cyanosis or edema Immunizations pneumoc 20-jonathan conj-dip cr(PF) 0.5 mL IM syringe Performing Provider: Bharat Dominguez MD Performing Location: [facility] Administered by: Bharat Dominguez MD on 10/09/24 11:32 Dose Route Admin Location Dispensed Lot Number Expiration Date NDC Air Quality Specialist 0.5 mL IM Right Deltoid 0.5 mL [id number] 11/06/25 6863-2581-55 [employer] VIS Given Date VIS Provided VIS Publication Date 10/09/24 Single Vaccine 21 Eligibility Eligibility Date Funding Source Not [facility] Eligible 10/09/24 Private Assessment & Plan Assessment & Plan (1) Chronic respiratory failure: Code(s): J96.10 - Chronic respiratory failure, unspecified whether with hypoxia or hypercapnia Category: Medical Qualifiers: Respiratory failure complication: hypoxia Qualified Code(s): J96.11 - Chronic respiratory failure with hypoxia (2) Pulmonary nodules: Code(s): R91.8 - Other nonspecific abnormal finding of lung field Category: Medical (3) COPD (chronic obstructive pulmonary disease): Comment: severe based on PFTs Code(s): J44.9 - Chronic obstructive pulmonary disease, unspecified Category: Medical Qualifiers: COPD type: chronic bronchitis Chronic bronchitis type: simple Qualified Code(s): J41.0 - Simple chronic bronchitis (4) Pneumonitis: Comment: resolved Code(s): J18.9 - Pneumonia, unspecified organism Category: Medical Plan stop Trelegy 200 start Wixela reflux diet encorafenib with cetuximab therapy, low risk for pulmonary adverse effects, tolerating well F/U 3-4 months Orders: Orders Pneumococcal 20 Immunization 10/09/24 Z23 - Encounter for immunization Medications: New fluticasone propion-salmeterol 250-50 mcg/dose (Wixela Inhub) 1 inh inhalation Q12H 60 ea 11RF 30 days Discontinued fofmcscodbo-bvmbcpimj-ackidjdi 200-62.5-25 mcg (Trelegy Ellipta) Discontinued Reason: Duplicate 1 inh inhalation DAILY 30 days 60 ea 12RF Coding Level of Care Code Est Pt Level 4 (44131) Diagnoses Chronic respiratory failure with hypoxia J96.11 Respiratory failure complication: hypoxia Pulmonary nodules R91.8 Simple chronic bronchitis J41.0 COPD type: chronic bronchitis Chronic bronchitis type: simple Pneumonitis J18.9 Time Spent (min) 16
[2024-10-09 09:42] VITALS: BP 102/52; PULSE 74; O2SAT 97; BMI 20.5
== END 2024-10-09 10:19 | disposition home or self-care (01) ==
PROVIDERS: PCP Internal Medicine; Visit Provider Hospitalist
DX: Z23 Encounter for immunization (principal)
CPT/HCPCS: 99214

== ENCOUNTER → 2024-10-09 09:34 | Outpatient (BNVA) | payer MEDICARE, SELFPAY | PROVIDERS: PCP Internal Medicine; Visit Provider Hospitalist | DX: Z23 Encounter for immunization (principal); J96.11 Chronic respiratory failure with hypoxia; J41.0 Simple chronic bronchitis; J18.9 Pneumonia, unspecified organism | CPT/HCPCS: 90471; 90677; 99212 ==

== ENCOUNTER 2024-10-20 09:52 | Outpatient (REF) | payer MEDICARE, SELFPAY ==
--- NOTE | ~2024-10-20 | PE_ITS ---
EXAMINATION: FLUORINE-18 FDG PET/CT SCAN CLINICAL INFORMATION: Centimeters response to treatment. Malignant neoplasm of colon TECHNIQUE: 60 minutes following the intravenous administration of 16.0 mCi of fluorine 18 FDG, images from the skull base to mid thigh were obtained using a combined PET/CT scanner with CT scan based attenuation correction. No oral contrast given there No intravenous contrast was administered. Transverse, coronal, sagittal, and volume reconstruction projections were obtained. The patient's blood glucose as determined by a finger stick, was 84 mg/dL immediately prior to injection. The radiotracer was injected intravenously through left antecubital vein, without any complications. Total CT exam dose-length product 439 mGy-cm. * These CT images were obtained using dose optimization techniques as appropriate, variously including the following: Automated exposure control * Adjustment of mA and/or kV according to patient size (this includes techniques or standardized protocols for targeted exams where dose is matched to indication/reason for exam; i.e. extremities or head) * Use of iterative reconstruction technique COMPARISON: None available. Outside PET/CT imaging 07/14/2023 FINDINGS: HEAD AND NECK: No abnormal radiotracer uptake. No large intracranial hemorrhage, acute territorial infarct or significant shift of midline structures. There is nonsegmental mild increased activity seen in the thyroid lobes. There is moderate hardware in the oral cavity limiting evaluation. No gross abnormal neck mass or lymph nodes seen. CHEST: Ports and Devices: The central venous port. Lungs: No abnormal radiotracer uptake. Previously visualized tracer activity in the right upper lobe, lingula and right hilar region is not visualized. There is bibasilar platelike atelectasis. Pleura: No significant pleural effusion. Lymph Nodes: No tracer-avid mediastinal, hilar or internal mammary or axillary lymphadenopathy. Mediastinum: There is no significant pericardial effusion/thickening. Heart size is enlarged. Breasts/Chest Wall: There are augmented bilateral breast with calcified capsule but no abnormal FDG uptake. ABDOMEN/PELVIS: Liver/Biliary System: No focal tracer-avid liver lesion. The gallbladder appears unremarkable. Pancreas: The pancreas is atrophied but homogeneous in density. No abnormal tracer uptake right Spleen: No abnormal radiotracer uptake. No evidence of splenomegaly. Adrenal Glands: No abnormal radiotracer uptake. Kidneys: No hydronephrosis, hydroureter or renal calculi bilaterally. Bowel: No abnormal activity seen in the right abdomen no adjacent small bowel as noted previously. There is scattered stool, gas and diverticuli in colon without distention. Nonspecific mild activity seen in colonic diverticuli. The small bowel loops are normal caliber. Appendix is surgical leticia in the right conal fascia likely from previous surgical changes. There is a right lower quadrant ileostomy likely. Lymph Nodes: There is a focal abnormal metabolic activity seen in the right infra renal lymph node similar to previous study with a greater intensity than before. No additional areas of metabolic activity seen. No additional areas of metabolic is seen in the retroperitoneum or the pelvis. Pelvic Organs: The urinary bladder is underdistended. MUSCULOSKELETAL: There are nonspecific focal activity seen along the costovertebral junctions of thoracic spine bilaterally. Mild activity seen in the bilateral forearm muscles as well as medial proximal upper extremity muscles. This could be secondary to shearing cold atmosphere. VASCULAR: Unremarkable PET/PET CT fusion skull to thigh IMPRESSION: Previously visualized metabolic activity in the right upper lobe, lingula and bilateral hilar regions is not visualized at this time. There is nonspecific minimal activity seen in the thyroid gland but no focal nodule. Strongly FDG active right infrarenal retroperitoneal lymph nodes seen. No additional metabolic activity seen. There is moderate metabolic activity seen in bilateral costovertebral vertebral junctions throughout dorsal spine, nonspecific. Colonic diverticulosis with nonspecific mild FDG activity. Electronically signed by: Alex Hopkins MD 10/22/2024 09:43 AM ADRIAN
== END 2024-10-20 09:53 | disposition home or self-care (01) ==
LOC: HO.PET 09:52
PROVIDERS: PCP Internal Medicine; Visit Provider Internal Medicine
DX: Z13.89 Encounter for screening for other disorder (principal)

== ENCOUNTER 2025-01-04 07:56 | Day surgery (SDC) | payer MEDICARE, SELFPAY ==
[2024-12-29 14:49] VITALS: BMI 21.4
[2024-12-29 15:19] VITALS: BMI 21.4
[2025-01-04 08:43] VITALS: BP 117/68; PULSE 65; RESP 19; TEMP 36.4; O2SAT 96
[2025-01-04] MEDS: Tropicamide 1 % Ophth Sol 3 ML BTL 1 DROP EYE-RIGHT ×3 (08:49→08:50)
[2025-01-04] MEDS: Tetracaine HCl/PF 0.5% Oph Sol 4 ML DROPS 1 DROP EYE-RIGHT (08:49)
[2025-01-04] MEDS: Lactated Ringers 500 ML 50 ML IV (08:49)
[2025-01-04] MEDS: Cyclopentolate 1 % Ophth Sol 2 ML DRPBTL 1 DROP EYE-RIGHT ×3 (08:49→08:50)
[2025-01-04] MEDS: Phenylephrine HCL 2.5% Oph SoL 2 ML BOTTLE 1 DROP EYE-RIGHT ×3 (08:49→08:51)
[2025-01-04] MEDS: Ketorolac Tromethamine 0.5% Op 5 ML DROPS 1 DROP EYE-RIGHT ×3 (08:49→08:51)
--- NOTE | 2025-01-04 09:02 | HO.ANESPROP2 ---
Documented by User: Gladys Contreras NP 12/31/24 14:39 HPI - Anesthesia Eval Consult details Narrative: 79yo F for Right Cataract Extraction IOL Insertion No previous cataract on record PMFSH Active Problems Active Problems: All Active Problems Bronchitis (Acute) Elevated liver enzymes (Acute) Acute hypoxemic respiratory failure (Acute) Hypoxia (Acute) Colon cancer (Chronic) Pneumonitis (Acute) Pneumonia (Acute) COPD (chronic obstructive pulmonary disease) (Acute) Blood D-dimer assay positive (Acute) Chronic respiratory failure (Acute) Pulmonary nodules (Acute) Past Medical History Medical History (Updated 12/29/24 @ 14:31 by Jelly Jaramillo, LEX) Cataracts, bilateral CAD (coronary artery disease) Colon adenocarcinoma Pneumonia COPD (chronic obstructive pulmonary disease) Blood D-dimer assay positive Chronic respiratory failure Pulmonary nodules Family History Family History Sister Dementia Breast cancer Father Emphysema lung Mother Surgical History Surgical History (Updated 12/29/24 @ 15:27 by Jelly Jaramillo RN) Hx of colonoscopy S/P colon resection Social History Social History Household Members: Family Household Members Other:: grand daughter Housing: House Are you a primary life care planner to a significant other at home: No Do you presently have visiting nurse or other home services: No Patient Tobacco Use Status: Former Tobacco user Tobacco use type: Cigarette Use of substances other than those prescribed or required for medical reasons: No Have you been hit, kicked, punched, or otherwise hurt by someone within the past year? If so, by whom?: No Are you DNR?: No Advance Directives: No Advance Directives Information Provided: Yes Advance Directives on File: No Recently lost weight without trying: Yes How much weight loss: 14-23 pounds Eating poorly because of decreased appetite: Yes Nutrition screen score: 5 Nutrition Risks: Surgical patient >75years Poor oral hygiene: No service: No Current occupational status: retired Meds Allergies Allergy/AdvReac Type Severity Reaction Status Date / Time No Known Allergies Allergy Verified 12/29/24 15:19 Home Medications ?Medication ?Instructions ?Recorded ?Confirmed ?Last Taken ?Type aspirin 81 mg tablet,delayed 81 mg PO DAILY 09/28/22 12/29/24 05/11/24 History release atorvastatin 80 mg tablet 80 mg PO DAILY 09/28/22 12/29/24 05/11/24 History cholecalciferol (vitamin D3) 50 50 mcg PO DAILY 09/28/22 12/29/24 05/11/24 History mcg (2,000 unit) capsule metoprolol tartrate 25 mg tablet 25 mg PO BID 09/28/22 12/29/24 01/04/25 History nebulizers 05/23/23 12/29/24 Unknown History gabapentin 300 mg capsule 300 mg DAILY 05/11/24 12/29/24 05/11/24 History Exam Height,Weight and Vital Signs: Height 5 ft 3 in Weight 54.885 kg Assessment and Plan Assessment Anesthesia Assessment: Chart Reviewed Documented by User: Jessica Croft DO 01/04/25 09:03 [facility] Past Medical History Medical History (Updated 12/29/24 @ 14:31 by Jelly Jaramillo, LEX) Cataracts, bilateral CAD (coronary artery disease) Colon adenocarcinoma Pneumonia COPD (chronic obstructive pulmonary disease) Blood D-dimer assay positive Chronic respiratory failure Pulmonary nodules Family History Family History Sister Dementia Breast cancer Father Emphysema lung Mother Family history of problems with anesthesia: No Surgical History Surgical History (Updated 12/29/24 @ 15:27 by Jelly Jaramillo, LEX) Hx of colonoscopy S/P colon resection History of Problems with Anesthesia: No Social History Social History Household Members: Family Household Members Other:: grand daughter Housing: House Are you a primary life care planner to a significant other at home: No Do you presently have visiting nurse or other home services: No Patient Tobacco Use Status: Former Tobacco user Tobacco use type: Cigarette Use of substances other than those prescribed or required for medical reasons: No Have you been hit, kicked, punched, or otherwise hurt by someone within the past year? If so, by whom?: No Are you DNR?: No Advance Directives: No Advance Directives Information Provided: Yes Advance Directives on File: No Recently lost weight without trying: Yes How much weight loss: 14-23 pounds Eating poorly because of decreased appetite: Yes Nutrition screen score: 5 Nutrition Risks: Surgical patient >75years Poor oral hygiene: No service: No Current occupational status: retired Meds Allergies Allergy/AdvReac Type Severity Reaction Status Date / Time No Known Allergies Allergy Verified 12/29/24 15:19 Home Medications ?Medication ?Instructions ?Recorded ?Confirmed ?Last Taken ?Type aspirin 81 mg tablet,delayed 81 mg PO DAILY 09/28/22 12/29/24 05/11/24 History release atorvastatin 80 mg tablet 80 mg PO DAILY 09/28/22 12/29/24 05/11/24 History cholecalciferol (vitamin D3) 50 50 mcg PO DAILY 09/28/22 12/29/24 05/11/24 History mcg (2,000 unit) capsule metoprolol tartrate 25 mg tablet 25 mg PO BID 09/28/22 12/29/24 01/04/25 History nebulizers 05/23/23 12/29/24 Unknown History gabapentin 300 mg capsule 300 mg DAILY 05/11/24 12/29/24 05/11/24 History Exam Exam Date and Time: 01/04/25 0850 Height,Weight and Vital Signs: Height 5 ft 3 in Weight 54.885 kg Vital Signs Temperature 97.5 F 01/04/25 08:43 Pulse Rate 65 01/04/25 08:43 Respiratory Rate 19 01/04/25 08:43 Blood Pressure 117/68 01/04/25 08:43 Pulse Oximetry 96 01/04/25 08:43 Oxygen Delivery Method Room Air 01/04/25 08:43 Temperature 97.5 F 01/04/25 08:43 Pulse Rate 65 01/04/25 08:43 Respiratory Rate 19 01/04/25 08:43 Blood Pressure 117/68 01/04/25 08:43 Pulse Oximetry 96 01/04/25 08:43 Oxygen Delivery Method Room Air 01/04/25 08:43 Airway Mallampati Class: I TM Dist: >3cm Neck ROM: Full Loose/Missing/Broken Teeth: No (patient denies any loose or broken teeth) Heart: S1S2 Lungs: CTAB Assessment and Plan Assessment Anesthesia Assessment: Anesthesia Plan Discussed and Chart Reviewed Final Anesthetic Review Family History of Problems with Anesthesia: No History of Problems with Anesthesia: No NPO: Yes ASA Class: III Final Preanesthetic Review: No Changes in Pt Med Stat, Meds/Allgs Chart Reviewed, Consent Obtained/Reviewed and Anes Risks/Benef Reviewed Patient Risk: Intermediate Procedure Risk: Low Anesthetic Plan Anesthetic Plan: MAC: and Agree w/ Assess. and Plan Disposition: Standard PACU
--- NOTE | 2025-01-04 09:44 | MHC.SHP ---
Pre-Procedural Eval Section A - 24 Hr Update-Section A only Date of Service: 01/04/25 The patient is an INPATIENT: No Changes since office visit: No Cold of Flu in the past 2 weeks, No New Medical Problems, No Changes in Medication and No Patient answered all questions The patient has been examined within 24 hours of the surgical procedure. The History & Physical has been completed within 30 days and I have reviewed it.: Yes Section B - Complete if H&P > 30 days Chief Complaint: Age-related nuclear cataract, right eye Allergies: Allergies Allergy/AdvReac Type Severity Reaction Status Date / Time No Known Allergies Allergy Verified 12/29/24 15:19 Plan Diagnosis/Plan: Unchanged I have reviewed the history and physical and performed a pertinent physical examination on my patient. No changes have occurred unless specified. Time Spent With Patient Time: Total time managing care of this patient today ____ minutes.
--- NOTE | 2025-01-04 09:45 | P.PCNO_ITS ---
Ophthalmology Procedure Procedure Date of Service: 01/04/25 Ophthalmology Viscoelastic: Healon Duet Dual Pack Pro Ophthalmology Lenses: IOL Acrysof MP - MA60AC (23.5) Procedure Notes: PREOPERATIVE DIAGNOSIS: Decreased visual acuity right eye secondary to cataract POSTOPERATIVE DIAGNOSIS: Same PROCEDURE: Right cataract extraction with intraocular lens insertion SURGEON: Wagner Hsieh M.D. ANESTHESIA: Topical/MAC ESTIMATED BLOOD LOSS: None COMPLICATIONS: None After obtaining informed consent, the patient was brought to the operating room suite and placed in the supine position. After adequate sedation per anesthesia, topical drops of Tetracaine were given to the right eye. The eye was then prepped and draped in the usual sterile fashion. The operating room microscope was then positioned over the operative eye and a lid speculum placed. A paracentesis was created. Viscoelastic was then instilled into the anterior chamber. A three plane incision was then created temporally, utilizing a 2.85 mm keratome. Capsulotomy forceps were then utilized to create a circular tear capsulotomy. Hydrodissection and hydrodelineation were carried out until adequate mobilization of the nucleus occurred. Phacoemulsification was then utilized to remove the dense central nu cleus followed by removal of the cortical material utilizing the automated aspiration irrigation unit. Viscoelastic was instilled into the posterior capsular bag followed by placement of a posterior chamber intraocular lens without difficulty. The residual Viscoelastic was then removed utilizing the automated IA machine. The wound was checked and found to be watertight. The patient tolerated the procedure well and the lid speculum was removed. Intracameral injection of Vigamox 0.1 mL followed by a subtenon injection of Kenalog-40 0.2 mL were administered. The patient will be seen in the a.m.
[2025-01-04 10:09] VITALS: BP 98/61; PULSE 69; RESP 16; TEMP 36.2; O2SAT 97
[2025-01-04 10:24] VITALS: BP 109/60; PULSE 73; RESP 16; TEMP 36.2; O2SAT 97
== END 2025-01-04 10:27 | disposition home or self-care (01) ==
PROVIDERS: PCP Internal Medicine; Visit Provider Ophthalmology
PROC: (CPT 66985; principal; 2025-01-04 10:00)
DX: H25.11 Age-related nuclear cataract, right eye (principal); H54.7 Unspecified visual loss; H01.021 Squamous blepharitis right upper eyelid; H43.393 Other vitreous opacities, bilateral; H18.413 Arcus senilis, bilateral; E78.00 Pure hypercholesterolemia, unspecified; I25.10 Atherosclerotic heart disease of native coronary artery without angina pectoris; M81.0 Age-related osteoporosis without current pathological fracture; R73.02 Impaired glucose tolerance (oral); Z85.038 Personal history of other malignant neoplasm of large intestine; Z79.51 Long term (current) use of inhaled steroids; Z79.82 Long term (current) use of aspirin; Z90.49 Acquired absence of other specified parts of digestive tract; Z79.899 Other long term (current) drug therapy; Z87.891 Personal history of nicotine dependence
CPT/HCPCS: 66984; J2250; J3301; V2630

== ENCOUNTER 2025-01-18 08:32 | Day surgery (SDC) | payer MEDICARE, SELFPAY ==
[2024-12-29 14:54] VITALS: BMI 21.4
[2024-12-29 15:28] VITALS: BMI 21.4
[2025-01-18 09:13] VITALS: BP 97/56; PULSE 69; RESP 16; TEMP 36.6; O2SAT 99
[2025-01-18] MEDS: Tetracaine HCl/PF 0.5% Oph Sol 4 ML DROPS 1 DROP EYE-LEFT (09:24)
[2025-01-18] MEDS: Lactated Ringers 500 ML 50 ML IV (09:29)
[2025-01-18] MEDS: Cyclopentolate 1 % Ophth Sol 2 ML DRPBTL 1 DROP EYE-LEFT ×3 (09:30→09:40)
[2025-01-18] MEDS: Tropicamide 1 % Ophth Sol 3 ML BTL 1 DROP EYE-LEFT ×3 (09:31→09:41)
--- NOTE | 2025-01-18 09:31 | HO.ANESPROP2 ---
HPI - Anesthesia Eval Consult details Narrative: 79 yo F presenting for left cataract extraction IOL insertion PMFSH Active Problems Active Problems: All Active Problems Bronchitis (Acute) Elevated liver enzymes (Acute) Acute hypoxemic respiratory failure (Acute) Hypoxia (Acute) Colon cancer (Chronic) Pneumonitis (Acute) Pneumonia (Acute) COPD (chronic obstructive pulmonary disease) (Acute) Blood D-dimer assay positive (Acute) Chronic respiratory failure (Acute) Pulmonary nodules (Acute) Past Medical History Medical History (Updated 01/07/25 @ 12:54 by Isabelle Bennett NP) Cataracts, bilateral CAD (coronary artery disease) Colon adenocarcinoma Pneumonia COPD (chronic obstructive pulmonary disease) Blood D-dimer assay positive Chronic respiratory failure Pulmonary nodules Family History Family History Sister Dementia Breast cancer Father Emphysema lung Mother Family history of problems with anesthesia: No Surgical History Surgical History (Updated 01/11/25 @ 14:53 by Jelly Jaramillo RN) Hx of right cataract extraction (01/04/25) Hx of colonoscopy S/P colon resection History of Problems with Anesthesia: No Social History Social History Household Members: Family Household Members Other:: grand daughter Housing: House Are you a primary ambulatory care coordinator to a significant other at home: No Do you presently have visiting nurse or other home services: No Patient Tobacco Use Status: Former Tobacco user Tobacco use type: Cigarette Smoked in Last 30 Days: No Use of substances other than those prescribed or required for medical reasons: No Have you been hit, kicked, punched, or otherwise hurt by someone within the past year? If so, by whom?: No Are you DNR?: No Advance Directives: No Advance Directives Information Provided: Yes Advance Directives on File: No Recently lost weight without trying: Yes How much weight loss: 14-23 pounds Eating poorly because of decreased appetite: Yes Nutrition screen score: 5 Nutrition Risks: Surgical patient >75years Poor oral hygiene: No service: No Current occupational status: retired [employer] Allergies Allergy/AdvReac Type Severity Reaction Status Date / Time No Known Allergies Allergy Verified 12/29/24 15:19 Active Medications: Current Medications Albuterol Sulfate (Albuterol Sulfate (0.083%) 2.5 Mg/3 Ml Vial.Neb) 2.5 mg INHALE ONCE PRN PRN Reason: Shortness of Breath/Wheezing Lactated Ringer's (Lr) 500 mls @ 50 mls/hr IV .Q10H SANDOR Stop: 01/18/25 19:14 Naloxone HCl (Naloxone Hcl 0.4 Mg/Ml Vial) 0.04 mg IVPUSH Q5M PRN PRN Reason: Excessive sedation or RR < 8 Povidone Iodine (Povidone Iodine 5 % Ophth Soln 30 Ml Bottle) 1 appl EYE-LEFT PREOP PRN PRN Reason: Pre-Op Surgical Implant Prophy Home Medications ?Medication ?Instructions ?Recorded ?Confirmed ?Last Taken ?Type aspirin 81 mg tablet,delayed 81 mg PO DAILY 09/28/22 12/29/24 05/11/24 History release atorvastatin 80 mg tablet 80 mg PO DAILY 09/28/22 12/29/24 05/11/24 History cholecalciferol (vitamin D3) 50 50 mcg PO DAILY 09/28/22 12/29/24 05/11/24 History mcg (2,000 unit) capsule metoprolol tartrate 25 mg tablet 25 mg PO BID 09/28/22 12/29/24 01/18/25 History nebulizers 05/23/23 12/29/24 Unknown History gabapentin 300 mg capsule 300 mg DAILY 05/11/24 12/29/24 05/11/24 History Exam Exam Date and Time: 01/18/25 0920 Height,Weight and Vital Signs: Height 5 ft 3 in Weight 54.885 kg Last Vital Signs Temp 97.9 F 01/18/25 09:13 Pulse 69 01/18/25 09:13 Resp 16 01/18/25 09:13 BP 97/56 L 01/18/25 09:13 Pulse Ox 99 01/18/25 09:13 O2 Del Method Room Air 01/18/25 09:13 Airway Mallampati Class: I TM Dist: >3cm Neck ROM: Full Loose/Missing/Broken Teeth: No (patient denies any loose or broken teeth) Heart: S1S2 Lungs: CTAB Assessment and Plan Assessment Anesthesia Assessment: Anesthesia Plan Discussed and Chart Reviewed Final Anesthetic Review Family History of Problems with Anesthesia: No History of Problems with Anesthesia: No NPO: Yes ASA Class: III Final Preanesthetic Review: No Changes in Pt Med Stat, Meds/Allgs Chart Reviewed, Consent Obtained/Reviewed and Anes Risks/Benef Reviewed Patient Risk: Intermediate Procedure Risk: Low Anesthetic Plan Anesthetic Plan: MAC: and Agree w/ Assess. and Plan Disposition: Standard PACU
[2025-01-18] MEDS: Ketorolac Tromethamine 0.5% Op 5 ML DROPS 1 DROP EYE-LEFT ×3 (09:32→09:43)
[2025-01-18] MEDS: Phenylephrine HCL 2.5% Oph SoL 2 ML BOTTLE 1 DROP EYE-LEFT ×3 (09:33→09:45)
--- NOTE | 2025-01-18 10:09 | MHC.SHP ---
Pre-Procedural Eval Section A - 24 Hr Update-Section A only Date of Service: 01/18/25 The patient is an INPATIENT: No Changes since office visit: No Cold of Flu in the past 2 weeks, No New Medical Problems, No Changes in Medication and No Patient answered all questions The patient has been examined within 24 hours of the surgical procedure. The History & Physical has been completed within 30 days and I have reviewed it.: Yes Section B - Complete if H&P > 30 days Chief Complaint: Age-related nuclear cataract, left eye Allergies: Allergies Allergy/AdvReac Type Severity Reaction Status Date / Time No Known Allergies Allergy Verified 12/29/24 15:19 Plan Diagnosis/Plan: Unchanged I have reviewed the history and physical and performed a pertinent physical examination on my patient. No changes have occurred unless specified. Time Spent With Patient Time: Total time managing care of this patient today ____ minutes.
--- NOTE | 2025-01-18 10:09 | HO.PNOPHT ---
Ophthalmology Procedure Procedure Date of Service: 01/18/25 Ophthalmology Viscoelastic: Healon Duet Dual Pack Pro Ophthalmology Lenses: IOL Acrysof MP - MA60AC (24) Procedure Notes: PREOPERATIVE DIAGNOSIS: Decreased visual acuity left eye secondary to cataract POSTOPERATIVE DIAGNOSIS: Same PROCEDURE: Left cataract extraction with intraocular lens insertion SURGEON: Wagner Hsieh M.D. ANESTHESIA: Topical/MAC ESTIMATED BLOOD LOSS: None COMPLICATIONS: None After obtaining informed consent, the patient was brought to the operation room suite and placed in the supine position. After adequate sedation per anesthesia, topical drops of Tetracaine were given to the left eye. The eye was then prepped and draped in the usual sterile fashion. The operating room microscope was then positioned over the operative eye and a lid speculum placed. A paracentesis was created. Viscoelastic was then instilled into the anterior chamber. A three plane incision was then created temporally, utilizing a 2.85 mm keratome. Capsulotomy forceps were then utilized to create a circular tear capsulotomy. Hydrodissection and hydrodelineation were carried out until adequate mobilization of the nucleus occurred. Phacoemulsification was then utilized to remove the dense central nucleus followed by removal of the cortical material utilizing the automated aspiration irrigation unit. Viscoat elastic was instilled into the posterior capsular bag followed by placement of a posterior chamber intraocular lens without difficulty. The residual Viscoat elastic was then removed utilizing the automated IA machine. The wound was check and found to be watertight. The patient tolerated the procedure well and the lid speculum was removed. Intracameral injection of Vigamox 0.1 mL followed by a subtenon injection of Kenalog-40 0.2 mL were administered. The patient will be seen in the a.m.
[2025-01-18 10:32] VITALS: BP 99/60; PULSE 72; RESP 16; TEMP 36.5; O2SAT 96
== END 2025-01-18 10:46 | disposition home or self-care (01) ==
PROVIDERS: PCP Internal Medicine; Visit Provider Ophthalmology
PROC: (CPT 66985; principal; 2025-01-18 11:00)
DX: H25.12 Age-related nuclear cataract, left eye (principal); H54.7 Unspecified visual loss; H43.393 Other vitreous opacities, bilateral; H18.413 Arcus senilis, bilateral; H01.021 Squamous blepharitis right upper eyelid; H01.024 Squamous blepharitis left upper eyelid; C18.9 Malignant neoplasm of colon, unspecified; E78.00 Pure hypercholesterolemia, unspecified; I25.10 Atherosclerotic heart disease of native coronary artery without angina pectoris; Z79.51 Long term (current) use of inhaled steroids; Z79.82 Long term (current) use of aspirin; Z79.899 Other long term (current) drug therapy; Z87.891 Personal history of nicotine dependence
CPT/HCPCS: 66984; J2250; J3301; V2630

== ENCOUNTER 2025-04-19 13:39 | Outpatient (REF) | payer MEDICARE, SELFPAY ==
--- NOTE | ~2025-04-19 | CT_ITS ---
EXAMINATION: CT ABDOMEN PELVIS WITH IV CONTRAST HISTORY: Assess response to treatment COMPARISON: Comparison is made with the prior examination dated 05/07/2023. Correlation is also made with a PET/CT scan dated 10/19/2024. TECHNIQUE: CT scan of the abdomen and pelvis was performed following administration of 85 mL Omnipaque 350 using standard departmental protocol. Coronal and sagittal reformatted images were generated and reviewed. Oral contrast material was not administered at the request of the referring physician. This CT exam was performed with one or more of the following dose reduction techniques: automated exposure control, adjustment of the mA and/or kV according to patient size, use of iterative reconstruction technique. DLP: 286 mGy-cm FINDINGS: LOWER CHEST: There is linear scarring of both lung bases. There is no pleural effusion. CARDIOVASCULATURE: The heart is normal in size. There is no pericardial effusion. LIVER: The liver is normal in size and contour. No liver mass is identified. The hepatic and portal veins are patent. GALLBLADDER / BILE DUCTS: The gallbladder is unremarkable. There is no intra or extrahepatic biliary ductal dilatation. SPLEEN: The spleen is normal in size. No focal splenic lesion is identified. PANCREAS: The pancreas is unremarkable in appearance. ADRENAL GLANDS: Within normal limits. KIDNEYS/RETROPERITONEUM: No renal calculi are identified. There is no hydronephrosis. Again seen is a 12 mm cyst at the anterior aspect of the interpolar region of the right kidney. Multiple surgical clips are again seen in the right pararenal space. The previously noted soft tissue nodules in this region are no longer identified. LYMPH NODES: No abdominal or pelvic lymphadenopathy. VASCULATURE: The abdominal aorta demonstrates atherosclerotic calcification, but is normal in caliber. MESENTERY/PERITONEUM: No free fluid. No masses. There is no free intraperitoneal gas. STOMACH: The stomach is unremarkable. SMALL BOWEL: The small bowel is normal in caliber. The previously seen right lower quadrant ileostomy has been reversed. COLON: The patient is status post ascending colectomy. There is diverticulosis of the descending and sigmoid colon, without evidence of diverticulitis. APPENDIX: The appendix is surgically absent. URINARY BLADDER/PELVIC ORGANS: The urinary bladder is collapsed, limiting evaluation. The uterus is unremarkable. BONES / SOFT TISSUES: There is degenerative disc disease of the spine. CT/CT abdomen pelvis w IV con IMPRESSION: The previously seen soft tissue nodules in the right pararenal space are no longer identified. Electronically signed by: Alex Le MD 04/19/2025 02:53 PM EDT
[2025-04-19] MEDS: iohexoL 350 MG/ML 100 ML INFUS..BTL IV (14:37)
--- OUTSIDE RECORDS SUMMARY | 2025-04-19 14:51 | XMS_ITS | Clinical Summary ---
Author Organization [facility], Address [address] [place] [address] Phone Care Team Providers Care Design Engineering Manager Name Role Phone Brandon Buenrostro Primary Care Provider [phone] Allergies No known active allergies Medications aspirin (ST HUGO) 81 MG EC tablet Take 81 mg by mouth 1 (one) time each day Active atorvastatin (LIPITOR) 80 MG tablet Take 80 mg by mouth 1 (one) time each day Active acetaminophen (TYLENOL) 325 MG tablet Take 325 mg by mouth every 6 (six) hours if needed for mild pain Active CHOLECALCIFEROL PO Take by mouth Active metoprolol tartrate 25 MG tablet Take 25 mg by mouth in the morning and 25 mg in the evening. 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 Carcinoma in situ of colon 12/12/2022 Pneumonia 12/12/2022 Overview (12/12/2022): 08/2022 Myocardial infarction 12/12/2022 Overview (12/12/2022): Minor , 10 years ago Restless legs syndrome (RLS) 12/12/2022 Personal history of colon polyp 12/12/2022 Social History Tobacco Use Types Packs/Day Years Used Date Smoking Tobacco: Former Cigarettes Q uit: 2002 Smokeless Tobacco: Never Tobacco Cessation:Counseling Given: Not Answered Alcohol Use Standard Drinks/Week Comments Never 0 (1 standard drink = 0.6 oz pur e alcohol) Comments Unknown Sex and Gender Information Value Date Recorded Sex Assigned at Not on file Legal Sex Female 4:14 PM EST Gender Identity Not on file Sexual Orientation Not on file Last Filed Vital Signs Vital Sign Reading Time Taken Comments Blood Pressure 122/69 12/25/2022 1:54 PM EDT Pulse 111 12/25/2022 1:54 PM EDT Temperature 36.3 C (97.3 F) 12/25/2022 1:54 PM EDT Respiratory Rate 16 12/25/2022 1:54 PM EDT Oxygen Saturation 96% 12/25/2022 1:54 PM EDT Inhaled Oxygen Concentration - - Weight 63.5 kg (140 lb) 12/25/2022 1:54 PM EDT Height 162.6 cm (5' 4 ) 12/25/2022 1:54 PM EDT Body Mass Index 24.03 12/25/2022 1:54 PM EDT Plan of Treatment Health Maintenance Due Date Last Done Comments Pneumococcal Vaccine: 50+ Ye ars (1 of 1 - PCV) 1996 Influenza Vaccine (#1) 2025 Hepatitis B Vaccine Aged Out No longe r eligible based on patient's age to complete this topic Insurance [facility] Medicare Care Teams Design Engineering Manager Relationship Specialty Start Date End Date Brandon Buenrostro DO [address] [place] [address] PCP - General Internal Medicine 01/02/23
== END 2025-04-19 13:40 | disposition home or self-care (01) ==
LOC: HO.CT 13:39
PROVIDERS: PCP Internal Medicine; Visit Provider Internal Medicine
DX: C18.9 Malignant neoplasm of colon, unspecified (principal)
CPT/HCPCS: 74177; Q9967

== ENCOUNTER → 2025-04-19 13:41 | Outpatient (BNV) | payer MEDICARE, SELFPAY | PROVIDERS: PCP Internal Medicine; Visit Provider Radiology Diagnostic Radiology | DX: Z09 Encounter for follow-up examination after completed treatment for conditions other than malignant neoplasm (principal) | CPT/HCPCS: 74177 ==

== ENCOUNTER 2025-06-29 08:54 | Outpatient (AMB) | payer MEDICARE, SELFPAY ==
[2025-06-29 08:56] VITALS: BP 110/60; PULSE 65; O2SAT 99; BMI 21.2
--- NOTE | 2025-06-29 08:56 | MHC.OFFVIS ---
Vital Signs 06/29/25 08:56 Height 5 ft 4.5 in Weight 125 lb 10.616 oz BMI 21.2 BP 110/60 Blood Pressure Location Lt brachial Position Sitting Pulse 65 Pulse Source Pulse Oximeter Pulse Oximetry (%) 99 Oxygen Delivery Method Room Air Intake Visit Reasons: Pneumonia Accompanied by: Self / Same As Patient Allergies No Known Allergies Allergy (Verified 06/29/25 08:59) HPI Comments Details: The patient is a 79 year woman who apparently was in usual state health until the last several weeks when she started developing worsening shortness of breath. She was evaluated at [facility] where she was admitted to the hospital. There she did undergo a CT scan of the chest PE protocol ruling out PE although she had multiple patchy areas of consolidations and nodular densities. It was suspicious for inflammatory process versus infectious atypical process. She was given a course of prednisone and also antibiotics. Her symptoms did improve initially initially. However she also needed oxygen. She was discharged and then tapered off the prednisone. She has been noticing worsening shortness of breath. I personally reviewed the images. Appears that the it patchy opacities are primarily in a bronchovascular distribution. Noninfectious inflammatory conditions such as cryptogenic organizing pneumonia is in differential. The patient also went for 6 minute walk test. The patient still requires about 3 L of continues oxygen to maintain are within the low 90s. Therefore will submit that to her [employer]. Explained to her that she cannot use effectively a conserving device or portable oxygen concentrator. Dose will not provide her enough relief or help with her hypoxia. Patient also using the oxygen at nighttime. In view of the CT scan findings she will undergo blood work. Rivka Dawson ruled out pulmonary emboli based on the CTA. However I will order D-dimer again just to reassess. If her D-dimer is elevated and a V/Q scan will be helpful to assess for thromboembolic disease. 11/05/2022 the patient is here for a pulmonary follow-up visit. She is down to 5 mg of prednisone daily. She is getting some dyspepsia Erika he had sensation middle the chest. Will place her on a PPI to try to minimize symptoms. We again talked about the findings on the CT scan. Does not appear to be concerning for malignancy although it is still in differential. It appears to be more inflammatory. Her blood work included a positive JAXON although very slow titers. If she also had a significantly elevated sedimentation rate of 86. The significance of that is still not clear. Her vasculitis workup was negative and her hypersensitive workup also negative. She is feeling better. She is not using the oxygen which is reassuring. She also did undergo pulmonary function studies which we personally reviewed the patient does have severe COPD based on the PFTs and does have a significant response to bronchodilators. Therefore will go ahead and start her on a maintenance inhaler to see if we can alleviate some of her symptoms. She will need a repeat CT scan of the chest to follow up with the abnormal masslike opacities that she had a previous CT scan. Will follow-up after her CT scan. 05/23/2023 the patient is here for pulmonary follow-up visit. Reason she was to be sent March with worsening respiratory symptoms. X-ray demonstrated pneumonia. The patient's treating release. Above discharge the patient continue to have a worsening cough along with shortness of breath. She was prescribed azithromycin and also prednisone. She did not take the prednisone since he really affected her adversely when she had prescribed at [facility]. Explained to her that was likely a high dose making it difficult for her to tolerated. However, give her small dose of medicine a would be tolerable. The patient did have a CT scan of the chest here at [place] on May 07. I personally reviewed with her. It looks like the pneumonia cleared up. However, she does have areas of ground-glass opacities suggesting some persistent pneumonitis. She had been as on a small dose of prednisone and I do believe that she continues to need a little bit of prednisone. Therefore will start her on 10 mg daily for 2 weeks and then she can taper down to 5 mg for another 1-2 weeks. The patient will be evaluated by Oncology again both here at [place] and also in [place]. The patient is aware that if she starts immune therapy again she has start the prednisone altogether will also extend her antibiotics since she is still expectorating some phlegm. Overall she is feeling better. 06/20/2023 the patient is here for a pulmonary follow-up visit. Overall the patient has been feeling better from a respiratory standpoint. She continues on prednisone. Now taking half a tablet, 5 mg, daily. She has 2 more weeks. In the meantime she she was start her new treatment tomorrow for her colon cancer. She did not tolerate immune therapy. She will be starting monoclonal antibodies and tiredness kinase inhibitors. Hopefully she can tolerate the therapy better in the meantime will go ahead and repeat her chest x-ray when she has completed the prednisone. If the patient has any worsening symptoms prior to the next visit the patient is to call the office for an earlier assessment. 09/20/2023 the patient is here for a pulmonary follow-up visit. She is doing very well from a respiratory status. She is off the prednisone and she is also off the oxygen right now. She recently did have a reversible her ostomy bag which is very happy about. She is 2 weeks out. She will be talking to her oncologist soon. She is wondering about going back tried immune therapy. The immune therapy likely resulted adverse reactions such as pneumonitis. However, it worked well for her cancer. Seems like it help shrink the cancer. She will talk to her oncologist regarding that potential therapy. In the meantime if she does go back on immune therapy will have to provide her with additional inhaled steroids to try to minimize the pulmonary adverse effects and she can not tolerate it. 07/08/2024 the patient is here for pulmonary follow-up visit. Overall she is doing a lot better since she was in the hospital. She had a significant reaction to the immune therapy resulting in significant pneumonitis and respiratory failure. She required high doses of steroids in addition to oxygen supplementation. Now she is off all steroids and is also on room air. She was able to return the oxygen. The patient did start a new regimen by Oncology. Seems to be tolerating it better. No evidence of any respiratory complaints. These 2 agents are less likely to cause pulmonary manifestations. She is slowly increasing the dose to make sure that she tolerates it. We did review her last chest x-ray from 9 03/26/2024 with interval resolution of the ground-glass opacities and airspace disease. Will go ahead and plan to repeat the x-ray in the coming months. She continues on the Trelegy inhaler. She has been a little more congested lately. Productive in nature difficult to expectorate. Moderate severity. May be developing about bronchitis. Will go ahead start her on doxycycline. If the patient is no better for chest congestion worsens she will call the office for further evaluation and recommendations. 10/09/2024 the patient is here for a pulmonary follow-up visit. The patient overall has been doing well. She is no longer using the oxygen. She continues to tolerate the current targeted therapy for her colon cancer. Has not been affecting her lungs which is reassuring. She has actually gained some weight. She has not been using the Trelegy because it is expensive for her. While go ahead and send her Wixela in order for her to be on some degree of cortical steroid therapy to minimize inflammation to the lungs. She will pick it up at the pharmacy started. She does have a PET scan scheduled soon. Hopefully based on the fact that she is doing clinically well and also she demonstrates stability of disease. Will follow-up in 4-6 months. 06/29/2025 the patient is here for pulmonary follow-up visit. Overall she is doing excellent. She is tolerating her new targeted chemotherapy regimen without any significant pulmonary manifestations. Denies any difficulty breathing. She has no longer has the oxygen. Her last chest x-ray was fairly clear. She also had a CT scan of the abdomen recently which I personally reviewed at least the lung windows demonstrating just a minimal degree of scarring likely secondary to her previous pneumonitis and infections. She will continue with her exercise regimen. The patient tries to walk at least 5000 steps a day. Will plan to follow-up in the springtime. Will do additional imaging studies done. If she has any issues prior to the next visit she can always call for further recommendations. [facility] Medical History (Updated 01/07/25 @ 12:54 by Isabelle Bennett NP) Cataracts, bilateral CAD (coronary artery disease) Colon adenocarcinoma Pneumonia COPD (chronic obstructive pulmonary disease) Blood D-dimer assay positive Chronic respiratory failure Pulmonary nodules Surgical History (Updated 02/08/25 @ 10:12 by Cece Reagan MD) Hx of right cataract extraction (01/04/25) Hx of colonoscopy S/P colon resection Family History Sister Dementia Breast cancer Father Emphysema lung Mother Social History Household Members: Family Household Members Other:: grand daughter Housing: House Are you a primary primary health care nurse to a significant other at home: No Do you presently have visiting nurse or other home services: No Patient Tobacco Use Status: Former Tobacco user Tobacco use type: Cigarette service: No Current occupational status: retired Review of Systems Const Denies fever(s) and Reports weight gain Eyes Denies change in vision and Denies itchy eyes ENT Denies change in voice Card Denies chest pain and Denies dyspnea on exertion Resp Denies chest congestion, Reports cough and Denies dyspnea on exertion GI Denies abdominal pain Skin/Breast Denies rash Psych Reports no additional complaints Endo Denies heat intolerance [place]/Lymph Denies easy bruising Aller/Immun Denies urticaria and Denies itchy eyes Physical Exam Vital Signs: Last Vital Signs Pulse 65 06/29/25 08:56 BP 110/60 06/29/25 08:56 Pulse Ox 99 06/29/25 08:56 Oxygen Delivery Method Room Air 06/29/25 08:56 BMI result Body Mass Index 21.2 Last Vital Signs Temp 97 F 05/15/24 07:52 Pulse 69 05/15/24 08:52 Resp 18 05/15/24 08:03 BP 119/72 05/15/24 08:52 Pulse Ox 93 05/15/24 07:52 O2 Del Method Nasal Cannula 05/15/24 07:52 O2 Flow Rate 1 05/15/24 07:52 Oxygen Flow Rate 2 05/11/24 14:43 BMI result Body Mass Index 19.3 Const General: comfortable HEENT Head: Yes normocephalic Neck Neck: Yes supple Chest Chest palpation & inspection: normal inspection of the chest Resp Effort & Inspection: normal respiratory effort Auscultation: clear to auscultation bilaterally, no crackles, no rhonchi and no wheezes Cardio Heart sounds: S1 normal heart sound present and S2 normal heart sound present GI Palpation (GI): Soft to palpation Skin General skin exam: no rashes or lesions noted Extrem General: Yes no clubbing, cyanosis or edema Assessment & Plan Assessment & Plan (1) Chronic respiratory failure: Code(s): J96.10 - Chronic respiratory failure, unspecified whether with hypoxia or hypercapnia Category: Medical Qualifiers: Respiratory failure complication: hypoxia Qualified Code(s): J96.11 - Chronic respiratory failure with hypoxia (2) Pulmonary nodules: Code(s): R91.8 - Other nonspecific abnormal finding of lung field Category: Medical (3) COPD (chronic obstructive pulmonary disease): Comment: severe based on PFTs Code(s): J44.9 - Chronic obstructive pulmonary disease, unspecified Category: Medical Qualifiers: COPD type: chronic bronchitis Chronic bronchitis type: simple Qualified Code(s): J41.0 - Simple chronic bronchitis (4) Pneumonitis: Comment: resolved Code(s): J18.9 - Pneumonia, unspecified organism Category: Medical Plan Wixela reflux diet encorafenib with cetuximab therapy, low risk for pulmonary adverse effects, tolerating well F/U 8-10 months Coding Level of Care Code Est Pt Level 4 (83618) Complex EM visit Add On G2211 Diagnoses Chronic respiratory failure with hypoxia J96.11 Respiratory failure complication: hypoxia Pulmonary nodules R91.8 Simple chronic bronchitis J41.0 COPD type: chronic bronchitis Chronic bronchitis type: simple Pneumonitis J18.9 Time Spent (min) 16
--- OUTSIDE RECORDS SUMMARY | 2025-06-29 10:09 | XMS_ITS | Clinical Summary ---
Author Organization [facility], Address [address] [place] [address] Phone Care Team Providers Care Retail Leasing Agent Name Role Phone FredyBrandon domingo Primary Care Provider [phone] Allergies No known active allergies Medications aspirin [...] patient's age to complete this topic Insurance [facility] Medicare Care Teams Retail Leasing Agent Relationship Specialty Start Date End Date Brandon Buenrostro DO [address] [place] [address] PCP - General Internal Medicine 01/02/23
--- OUTSIDE RECORDS SUMMARY | 2025-06-29 10:09 | XMS_ITS | Clinical Summary ---
Author Organization [facility] Address [address] [place] [id number] Phone Care Team Providers Care Engineer Intern Name Role Phone Pcp, Unknown Primary Care Provider Unavailabl e Social History Tobacco Use Types Packs/Day Years Used Date Smoking Tobacco: Never Assessed Education Answer Date Recorded Are you interested in more education? Not on navarro e 05/02/2023 Are you concerned about learning? Not on file 05/02/2023 No 05/02/2023 No 05/02/2023 Digital Access Answer Date Recorded No 05/02/2023 No 05/02/2023 Reliable internet access at home? Not on file 05/02/2023 Device with a working camera? Not on file Comments Unknown Sex and Gender Information Value Date Recorded Sex Assigned at Female 04/29/2023 8:43 AM EDT Legal Sex Female 8:28 AM EDT Gender Identity Female 04/29/2023 8:43 AM EDT Sexual Orientation Straight 04/29/2023 8: 43 AM EDT Plan of Treatment Health Maintenance Due Date Last Done Comments Adult Td,Tdap Booster 1946 LIPID PANEL 1946 DEPRESSION SCREENING 1958 SMOKING Hx and SMOKELESS TOBACCO SCREENING 1959 HEPATITIS C SCREENING 1964 PNEUMOCOCCAL VACCINES (50+ years) (1 of 1 - PCV) 1996 ZOSTER VACCINES (1 of 2) 1996 OSTEOPOROSIS SCREENING INITI AL (ONE-TIME) 2011 RSV VACCINE (1 - 1-dose 75+ series) 2021 INFLUENZA VACCINE (#1) 2025 08/21/2022 COVID-19 VACCINE (2024-2 6 season) 2025 09/16/2021, 01/10/2021, 12/20/2020 HEPATITIS A VACCINES Aged Out No long er eligible based on patient's age to complete this topic HIB VACCINES Aged Out No longer eligi ble based on patient's age to complete this topic MENINGOCOCCAL VACCINES (ACWY) Aged Out No longer eligible based on patient's age to complete this topic MENINGOCOCCAL VACCINES (B) Aged Out N o longer eligible based on patient's age to complete this topic Medical Devices Not on file Insurance [facility] [place] [id number] Care Teams Engineer Intern Relationship Specialty Start Date End Date Pcp, Unknown PCP - General 04/29/23 Additional Source Comments The information contained in this document represents components of the legal health record. It is not the complete legal health record.[facility]
== END 2025-06-29 09:18 | disposition home or self-care (01) ==
LOC: HO.HPS 08:55
PROVIDERS: PCP Internal Medicine; Visit Provider Hospitalist
DX: J96.11 Chronic respiratory failure with hypoxia (principal); R91.8 Other nonspecific abnormal finding of lung field; J41.0 Simple chronic bronchitis; J18.9 Pneumonia, unspecified organism
CPT/HCPCS: 99214; G2211

== ENCOUNTER → 2025-06-29 08:54 | Outpatient (BNVA) | payer MEDICARE, SELFPAY | PROVIDERS: PCP Internal Medicine; Visit Provider Hospitalist | DX: J96.11 Chronic respiratory failure with hypoxia (principal); J41.0 Simple chronic bronchitis; J18.9 Pneumonia, unspecified organism; R91.8 Other nonspecific abnormal finding of lung field | CPT/HCPCS: 99212 ==